=== PATIENT | male | born 1955 | race Caucasian/White ===

== ENCOUNTER 2019-03-20 06:01 | Day surgery (SDC) | payer OTHER, SELFPAY ==
[2019-03-19 10:26] VITALS: BMI 29.5
--- NOTE | 2019-03-19 10:49 | ANES.PREANES ---
Pre-Anesthetic Assessment Pre-Anesthetic Assessment: Height/Weight: Height 1.78 m Weight 93.44 kg Proposed Procedure: Operation Date: 03/20/19 07:00 Proposed Procedures p Exploration of left groin w/ poss hernia repair [id number], R10.32(Left) - Mando Forbes MD Social: Social History: No alcohol and No tobacco Exam: Pre-Anes Outpt Exam: alert, oriented x 3, clear to auscultation bilaterally and regular rate & rhythm Airway: Submandibular: WNL Cervical ROM: WNL MP: 2 Dentition: Full History/ROS: No significant history except as noted CV/HEM: CV/HEM: HTN Anesthetic Plan: ASA status: II Anesthesia: Anesthesia Evaluation and General Risk of > 500 ml blood loss (7ml/kg in children): No PFSH Anesthesia PFSH: Medical History (Updated 03/19/19 @ 10:50 by Tom Sheikh MD) Hx of renal calculi (Acute) Hypertension (Acute) Surgical History (Updated 03/19/19 @ 10:50 by Tom Sheikh MD) History of colon resection (Acute) Hx of arthroscopy of right knee (Acute) Social History (Updated 03/19/19 @ 10:25 by Laly Mitchell RN) Smoking and tobacco status: former smoker Quit status (tobacco): has quit using tobacco Data Anesthesia Cardiac Studies: No Data to Display
[2019-03-20] VITALS (8 sets, daily range): BP systolic 136–160; BP diastolic 81–96; PULSE 45–55; RESP 15–18; TEMP 36.2–36.6; O2SAT 95–99
[2019-03-20] MEDS: sodium chloride 0.9% 1,000 ML 30 ML IV (06:30)
--- NOTE | 2019-03-20 06:53 | PM.HPUD ---
H&P update H&P Update: DATE OF SURGERY/PROCEDURE: 03/20/19 DATE H&P PERFORMED: 03/11/19 H&P UPDATE INFORMATION: H&P completed within last 30 days, No changes to prior documentation and H&P to be scanned into chart PLANNED PROCEDURE: Operation Date: 03/20/19 07:00 Proposed Procedures p Laparoscopic Inguinal Hernia Repair(Left) - Mando Forbes MD Full H&P Perinent History: Medical/Surgical History: Medical History (Updated 03/19/19 @ 10:50 by Tom Sheikh MD) Hx of renal calculi (Acute) Hypertension (Acute) Social History: Social History Smoking and tobacco status: former smoker Quit status (tobacco): has quit using tobacco
--- NOTE | 2019-03-20 08:17 | P.OP_ITS ---
Operative Report Post-Operative Note: Date of procedure: 03/20/19 Preop Diagnosis: Reducible left inguinal hernia Post-op Findings: Left indirect inguinal hernia Procedure Done: Open repair of left inguinal hernia with plug and mesh Pathology: none sent Surgeon: Mando Forbes Anesthesia: general Estimated blood loss (mL): 10 Condition: stable Disposition: PACU Operative Report: Procedure: A 5 cm incision was made over the left inguinal canal using 15 blade, the subcutaneous tissue, Andriy's fascia divided using electrocautery until the external oblique aponeurosis was identified. Using a 15 blade, a small opening was made in the external oblique aponeurosis along the length of the fibers, this was grasped with hemostats and opened using Metzenba um scissors medially to the external ring and laterally beyond the internal ring. The contents of inguinal canal were dissected free from the wall and a [place] drain was placed around it. There was no direct hernia noted. The cremasteric muscles were divided until the sac could be dissected free from the spermatic cord and reduced into the preperitoneal space. A small plug was placed in the internal ring and sutured using 2-0 Prolene ijldoz-ud-ashco suture. A Proloop mesh was introduced and using 2-0 Prolene suture the medial edge of the mesh were sutured to the fascia overlying the pubic tubercle, and the suture was run to approximate the inferior edge of the mesh to the shelving edge of inguinal ligament to a point beyond the internal ring. Interrupted 2-0 Prolene suture was used to approximate the superior edge of the mesh to the internal oblique muscles and the 2 limbs of the mesh was sutured lateral to the internal ring and approximated to the internal oblique muscle. The wound was copiously irrigated with saline, good hemostasis noted and the external oblique aponeurosis was closed with running 2-0 Vicryl suture, Andriy's fascia approximated using running 3-0 Vicryl suture, and skin was closed using running subcuticular 4-0 Monocryl suture and Dermabond. 10 mL of 0.5% Marcaine was infiltrated around the incision. Coding Level of Care Code Acute Security Operations Engineer for Timothy Tanner
--- NOTE | 2019-03-20 08:29 | SUR.PHASEI ---
0823 PATIENT TO PACU VIA GURNEY FROM OR AT THIS TIME. RR EVEN AND UNLABORED. PWD. PATIENT RESPONSIVE TO VERBAL STIMULI. DRESSING TO ABDOMEN, CDI.
[2019-03-20] MEDS: fentaNYL 50 mcg/mL INJ 2mL IVP ×2 (08:34→08:39)
--- NOTE | 2019-03-20 08:51 | SUR.PHASEI ---
0847 PATIENT TO OPS VIA [facility]. PATIENT RATES PAIN 6/10, FACES 3/10. PATIENT OK WITH GOING TO OPS TO TAKE A PAIN PILL. PATIENT RR EVEN AND UNLABORED.
[2019-03-20] MEDS: HYDROcodone-acetaminophen 5-325 mg Tablet 1 TAB PO (09:21)
--- NOTE | 2019-03-20 13:25 | ANE.PACU ---
 Inpatient post-anesthesia follow up: Airway intact: Yes Vital signs: Temperature 97.8 F Pulse Rate [Monito r] 51 Respiratory Rate 18 Blood Pressure [Ri ght Arm] 138/86 Pulse Oximetry 97 Oxygen Delivery Me thod Room Air Oxygen Flow Rate 8 Fraction of Inspir ed Oxygen Hydration adequate: No Nausea and vomiting: No Mental status: Baseline
--- NOTE | 2019-03-21 14:27 | P.PCN_ITS ---
PACU note Post-Anesthesia Exam: awake Disposition: discharged
--- NOTE | 2019-03-21 14:27 | PM.PACU ---
PACU note Post-Anesthesia Exam: awake Disposition: discharged
== END 2019-03-20 09:50 | disposition home or self-care (01) ==
PROVIDERS: Visit Provider Surgery
PROC: (CPT 49505; principal; 2019-03-20 07:00)
DX: K40.90 Unilateral inguinal hernia, without obstruction or gangrene, not specified as recurrent (principal); M15.9 Polyosteoarthritis, unspecified; G47.10 Hypersomnia, unspecified; I48.91 Unspecified atrial fibrillation; Z87.891 Personal history of nicotine dependence; Z82.49 Family history of ischemic heart disease and other diseases of the circulatory system; Z79.82 Long term (current) use of aspirin
CPT/HCPCS: 49505; J0690; J1100; J2001; J2405; J2704; J2710; J3010; J3490; J7030

== ENCOUNTER → 2019-04-24 13:58 | Outpatient (BNVA) | payer OTHER, SELFPAY | PROVIDERS: PCP Family Medicine; Visit Provider Urology | DX: N20.9 Urinary calculus, unspecified (principal); N20.2 Calculus of kidney with calculus of ureter; R97.20 Elevated prostate specific antigen [PSA] | CPT/HCPCS: 81001; 84153 ==

== ENCOUNTER → 2019-04-30 09:24 | Outpatient (BNVA) | payer OTHER, SELFPAY | PROVIDERS: PCP Family Medicine; Visit Provider Family Medicine | DX: I10 Essential (primary) hypertension (principal); E78.2 Mixed hyperlipidemia; M19.90 Unspecified osteoarthritis, unspecified site | CPT/HCPCS: 80053; 80061 ==

== ENCOUNTER → 2019-05-10 12:20 | Outpatient (BNVA) | payer OTHER, SELFPAY | PROVIDERS: PCP Family Medicine; Visit Provider Urology | DX: N20.2 Calculus of kidney with calculus of ureter (principal); R97.20 Elevated prostate specific antigen [PSA] | CPT/HCPCS: 81001 ==

== ENCOUNTER → 2019-06-11 10:06 | Outpatient (BNVA) | payer OTHER, SELFPAY | PROVIDERS: PCP Family Medicine; Visit Provider Nurse Practitioner Family | DX: M25.551 Pain in right hip (principal); M19.90 Unspecified osteoarthritis, unspecified site; M25.561 Pain in right knee; G89.29 Other chronic pain | CPT/HCPCS: 85651; 86038; 86140; 86431 ==

== ENCOUNTER 2019-07-04 15:16 | Outpatient (CLI) | payer OTHER, SELFPAY ==
--- NOTE | 2019-07-08 13:17 | N.ONRAD NP_ITS ---
Radiation Oncology New Patient Visit Patient: Fortunato Deleon MR#: [id number] : 1955> Age: 64> Sex: Male> Dictated by: Dr. Kavon Warren Date of Service: 07/04/2019 Referring Physician(s) : Dr. Robby Tinoco Diagnosis: Stage IIc (T1 cN0 M0) Sherry score 7 (4+3) adenocarcinoma the prostate status post directed image guided biopsy of the prostate in May 2019 PSA at diagnosis was 13 Mr. Deleon is a otherwise healthy gentleman with previous elevated PSA level dating back to 2018 was 6.1 at that time. He underwent transrectal needle biopsy here in July 2017. At that time he all 12 biopsies were benign. He has been followed by Dr. Tinoco since that time and has had an elevated PSA level increase to 9.5 and ultimately to 13 by his report. In April 2019 he underwent MRI at [facility] by report this revealed a 12mm focus of restricted diffusion abutting the anterior prostatic capsule. No abnormally enlarged lymph nodes were detected. Finding were consistent with a PI-RADS 4. He underwent image guided biopsy by Dr. Orourke in [facility] in May 2019. The noted lesion was biopsied 4 times and were positive for [place] score 7 (4+3). 70% of the tissue was involved. 12 other random biopsies of both lobes were obtained with these other areas clear of disease involvement. Mr. Deleon has had chronic urinary symptoms for years with frequency and urgency and weak stream slowly progressive over time. He has stable 2 time nocturia. He has adequate erectile function and remains sexually active. He has no bowel symptoms. 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 He is now scheduled to see Dr. Hong at [facility] in [place] to discuss robotic surgery in 1 month. His brother had prostate carcinoma treated 2 years ago with primary radiation. He apparently did well with this so far. Radiotherapy to date: Summary > No prior radiation therapy. Current Medications: tamsulosin Allergies: celecoxib. Medical History: - History of bladder stone, - history of renal calculi, - hypertension, - left inguinal hernia, - prostatitis. No history of collagen vascular disease. No previous radiation therapy. Surgical History: Colon resection, hernia repair (left inguinal), prostate biopsy, removal of calculus from renal pelvis and right knee arthroscopy. Family History: Father is at age 81 having experienced Alzheimer's disease, and renal cancer. Mother is at age 74 having experienced colon cancer. Brother is alive having experienced prostate cancer. Social History: Last screened on 06/19/2019 - Never smoked. Last screened on 06/19/2019 - Never drank. Patient indicated access to the following support systems: lives with spouse, significant other, family, or friends, lives in own house, supportive family/friends willing to assist with needs, and adequate transportation available for expected visits. Patient indicated the following nutritional habits: regular meals. Patient indicated participation in the following forms of activity: regular exercise. Current Complaints / Review of Systems: Constitutional - Denies lack of appetite, fatigue, fever, night sweats and change in weight. Eyes - Complains of blurred vision in the right eye. 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 ENMT - Denies dysphagia, ear pain, mouth dryness, stomatitis and altered taste. Neck - Complains of neck pain which is chronic and decreased range of motion. Integumentary - Denies rash. Cardiovascular - Complains of arrhythmias and has history of A-Fib. Denies chest pain and edema. Respiratory - Denies cough, dyspnea and wheezing. Gastrointestinal - Complains of occasional constipation. Complains of heartburn / dyspepsia. Denies abdominal pain, diarrhea, melena / GI bleeding, nausea and vomiting. Genitourinary (M) - Complains of frequency, nocturia gets up about 2 times per night and urgency. Denies dysuria. Musculoskeletal - Complains of joint pain in the right knee and right hip. Denies bone pain and muscle weakness. Neurologic - Denies dizziness and headaches. Endocrine - Denies diabetes and thyroid disease. Hematologic/Lymphatic - Complains of tender or enlarged lymph nodes on the right side of the groin.. Vital Signs: Performed on 07/04/2019 4:24 PM BMI - 28.094 kg/m2 (high), Height - 70.50 in, Weight - 198.6 lbs, Temperature - 98.2 f, Pulse - 52, Respiration - 18, O2 Sat - 96 %, Pain - 0 and BP - 128/ 90 mm(hg). Physical Exam: Robust youthful appearing gentleman in no acute distress. Lymph nodes he had no palpable cervical or supraclavicular adenopathy. Lungs were clear to auscultation. Heart was regular no murmur gallop. Abdominal examination was unremarkable. Extremities revealed no clubbing cyanosis or edema. Rectal examination revealed a small smooth prostate no masses ridging or asymmetry Performance Status: Pathology: Lab: Imaging: See HPI Impression: Stage IIc (T1 cN0 M0) [place] score 7 (4+3) adenocarcinoma the prostate confined to 1 biopsy with a PSA of 13 by report at diagnosis. At this time I did not feel CT staging or bone scan staging was necessary given the slow increase in his PSA over time. In addition I felt that his marginal PSA above 10 and small volume of disease mitigate against using combined treatment with androgen deprivation therapy. I felt the addition benefit of androgen deprivation therapy was small over primary treatment. Also given his vigorous lifestyle there was some risk that ADT would have a significant risk of adversely affecting his quality of like. I felt he was both a candidate for consideration of surgical resection as well as primary radiation therapy as definitive therapies. Should he choose surgery, the MRI does suggest a significant risk of encountering a positive margin at the time of prostatectomy. I outlined the relative toxicities of both and he will now see Dr. Hong at [facility] in [place] to discuss surgery before finalizing a treatment decision. Plan: Signed by: 07/08/2019 1:15:42 PM <<Signature on File>> Time spent with patient: CPT Code: CPT Code:
== END 2019-07-04 15:17 | disposition home or self-care (01) ==
LOC: ONCMED 15:19
PROVIDERS: PCP Family Medicine; Referring Provider Urology; Visit Provider Radiology Radiation Oncology
DX: C61 Malignant neoplasm of prostate (principal); Z79.899 Other long term (current) drug therapy
CPT/HCPCS: 99204

== ENCOUNTER → 2019-10-23 15:57 | Outpatient (BNVA) | payer OTHER, SELFPAY | PROVIDERS: PCP Family Medicine; Visit Provider Urology | DX: C61 Malignant neoplasm of prostate (principal); N39.3 Stress incontinence (female) (male); N52.31 Erectile dysfunction following radical prostatectomy; R97.20 Elevated prostate specific antigen [PSA] | CPT/HCPCS: 81001; 84153 ==

== ENCOUNTER → 2019-11-21 09:56 | Outpatient (BNVA) | payer OTHER, SELFPAY | PROVIDERS: PCP Family Medicine; Visit Provider Nurse Practitioner Family | DX: I10 Essential (primary) hypertension (principal); Z79.899 Other long term (current) drug therapy | CPT/HCPCS: 80053; 80061; 84443; 85025 ==

== ENCOUNTER → 2020-01-07 15:40 | Outpatient (BNVA) | payer OTHER, SELFPAY | PROVIDERS: PCP Family Medicine; Visit Provider Nurse Practitioner Family | DX: M25.551 Pain in right hip (principal); M25.561 Pain in right knee; G89.29 Other chronic pain | CPT/HCPCS: 73502; 73562 ==

== ENCOUNTER → 2020-01-28 15:54 | Outpatient (BNVA) | payer OTHER, SELFPAY | PROVIDERS: PCP Family Medicine; Visit Provider Urology | DX: C61 Malignant neoplasm of prostate (principal); R97.20 Elevated prostate specific antigen [PSA]; N39.3 Stress incontinence (female) (male); N52.31 Erectile dysfunction following radical prostatectomy | CPT/HCPCS: 81003; 84153 ==

== ENCOUNTER → 2020-03-04 17:53 | Outpatient (BNVA) | payer OTHER, SELFPAY | PROVIDERS: PCP Family Medicine; Visit Provider Orthopaedic Surgery | DX: Z20.828 Contact with and (suspected) exposure to other viral communicable diseases (principal) | CPT/HCPCS: 87635 ==

== ENCOUNTER 2020-03-09 14:23 | Observation (INO) | payer OTHER, SELFPAY ==
[2020-02-24 12:40] VITALS: BMI 27.2
--- NOTE | 2020-02-24 13:17 | ANES.PREANE2 ---
Pre-Anesthetic Assessment Pre-Anesthetic Assessment: Height/Weight: Height 1.78 m Weight 86.183 kg Preop Diagnosis: Hip replacement Proposed Procedure: Operation Date: 03/09/20 14:30 Proposed Procedures p right Total Hip Arthroplasty 94330 m16.11(Right) - Shayne Schaeffer MD Familial anesthetic complications: Had epidural before for colon resection and it was difficult and painful to get in and he feels he's had back problems since Was Beta Jessica taken within 24 hours: N/A Last intake: NPO Social: Social History: No alcohol and No tobacco Exam: Pre-Anes Outpt Exam: alert, oriented x 3, clear to auscultation bilaterally and regular rate & rhythm Airway: Cervical ROM: WNL MP: 2 Dentition: Full CV/HEM: CV/HEM: Afib (hx of a fib - no longer on any meds) GI: GI: GERD Musc/skel: Musc/skel: Lower Back Pain Anesthetic Plan: ASA status: 2 Anesthesia: Regional (specify below) Other: patient willing to try spinal despite hx of back pain after epidural Risk of > 500 ml blood loss (7ml/kg in children): No PFSH Anesthesia PFSH: Medical History Elevated PSA History of bladder stone CYSTOLITHOLAPAXY Hx of renal calculi Hypertension Prostate cancer 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 Prostatitis, chronic Reducible left inguinal hernia Urolithiasis Surgical History H/O prostate biopsy fusion biopsy H/O prostatectomy History of colon resection History of removal of calculus of renal pelvis through percutaneous nephrostomy Hx of arthroscopy of right knee S/P left inguinal hernia repair open 03/20/2019 Family History Mother , at age 74 Cancer Colon Father , at age 86 Cancer KIDNEY CANCER Social History Smoking and tobacco status: former smoker Quit status (tobacco): has quit using tobacco Alcohol intake: never Adopted: No Caregiver/support person: No Lives independently: No Household members: spouse Marital status: Current occupational status: employed History of recent travel: No Data Anesthesia Cardiac Studies: No Data to Display
[2020-03-09] VITALS (24 sets, daily range): BP systolic 93–149; BP diastolic 52–94; PULSE 50–81; RESP 16–22; TEMP 36.3–37.1; O2SAT 93–100
[2020-03-09] MEDS: sodium chloride 0.9% 1,000 ML 30 ML IV (10:11)
[2020-03-09] MEDS: acetaminophen 500 mg Tablet 1000 MG PO ×2 (10:13→18:02)
[2020-03-09] MEDS: gabapentin 300 mg Capsule PO ×2 (10:13→18:05)
[2020-03-09] MEDS: oxyCODONE 20 mg ER (12 HR) Tablet PO (10:14)
--- NOTE | 2020-03-09 10:14 | P.HP_ITS ---
Same Day Surgery H&P Indication for Procedure/HPI DATE OF PROCEDURE: March 09, 2020 CHIEF COMPLAINT/INDICATIONFOR SURGICAL PROCEDURE: 65-year-old with right lower extremity pain. I know of him from a previous anterior cruciate ligament tear on that same side. Arthroscopy revealed significant degenerative changes in the knee. He has continued to be bothered by pain in his right hip attributable to severe degenerative changes. And is admitted for right total hip arthroplasty. PREOP DIAGNOSIS: Osteoarthritis Right hip PLANNED PROCEDRUE: Operation Date: 03/09/20 09:30 Proposed Procedures p right Total Hip Arthroplasty 99181 m16.11(Right) - Shayne Schaeffer MD Medications/Allergies* Home Medications Medication Instructions Recorded Confirmed Type Aspir-81 81 mg PO DAILY 03/19/19 02/24/20 History acetaminophen 325 mg PO QID PRN 03/19/19 02/24/20 History glucosamine HCl 500 mg PO BID 03/19/19 02/24/20 History magnesium 84 mg PO DAILY 03/19/19 02/24/20 History omega 4-qbg-enb-fish oil [Fish Oil] 1 cap PO DAILY 03/19/19 02/24/20 History amlodipine 2.5 mg PO DAILY 02/24/20 02/24/20 History metoprolol succinate 25 mg PO DAILY 02/24/20 02/24/20 History potassium citrate 20 meq PO TID 02/24/20 02/24/20 History Allergies/Adverse Reactions Allergy/AdvReac Type Severity Reaction Status Date / Time celecoxib [From Celebrex] AdvReac COULDNT Verified 01/21/20 15:35 WALK Current Medications: Generic Name Dose Route Start Last Admin Trade Name Freq PRN Reason Stop Dose Admin Sodium Chloride 1,000 mls @ 30 mls/hr 03/09/20 10:00 03/09/20 10:11 Sodium Chloride 0.9% IV 03/10/20 09:59 30 mls/hr .Q24H ANDRESSA Administration Pertinent History/Comorbid Conditions* Medical History (Updated 01/28/20 @ 16:50 by Robby Tinoco MD) Elevated PSA History of bladder stone CYSTOLITHOLAPAXY Hx of renal calculi Hypertension Prostate cancer 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 Prostatitis, chronic Reducible left inguinal hernia Urolithiasis Surgical History (Updated 08/12/20 @ 16:50 by Robby Tinoco MD) H/O prostate biopsy fusion biopsy H/O prostatectomy History of colon resection History of removal of calculus of renal pelvis through percutaneous nephrostomy Hx of arthroscopy of right knee S/P left inguinal hernia repair open 03/20/2019 Family History (Updated 04/19/19 @ 15:30 by LIANET Garcia) Father, at age 86 Mother, at age 74 Cancer Mother Colon Father KIDNEY CANCER Social History Smoking and tobacco status: former smoker Quit status (tobacco): has quit using tobacco Alcohol intake: never Adopted: No Caregiver/support person: No Lives independently: No Household members: spouse Marital status: Current occupational status: employed History of recent travel: No Pertinent Exam Findings alert, oriented x 3, clear to auscultation bilaterally, regular rate & rhythm and operative site marked Recommendations Surgery/Procedure today Coding Level of Care Code Acute Client Solutions Director for Timothy Tanner
[2020-03-09] MEDS: ceFAZolin 2,000 MG in sodium chloride 0.9% (plus) 50 ML 100 MG IV (10:30)
--- NOTE | 2020-03-09 11:03 | P.ANESUD_ITS ---
Pre-Anesthetic Update Pre-Anesthetic Assessment: Date of Surgery/Procedure: 03/09/20 Preop Leanne gnosis: Hip replacement Proposed Procedure: Operation Date: 03/09/20 09:30 Proposed Procedures p right Total Hip Arthroplasty 69806 m16.11(Right) - Shayne Schaeffer MD Any changes to Pre-Anesthetic Assessment?: No Last Intake: Intake Last Liquid Date 03/08/20 Last Liquid Time 20:00 Last Solid Date 03/08/20 Last Solid Time 20:00 Vitals: Temperature 97.5 F L 03/09/20 09:55 Temperature Source Temporal Artery S can 03/09/20 09:55 Pulse Rate 58 L 03/09/20 09:55 Pulse Rhythm 03/09/20 09:55 Pulse Strength 3+ Normal 03/09/20 09:55 Respiratory Rate 18 03/09/20 09:55 Blood Pressure 129/86 03/09/20 09:55 Blood Pressure Willa n 100 03/09/20 09:55 Pulse Oximetry 97 03/09/20 09:55 Oxygen Delivery Me thod 03/09/20 09:55 Exam: Pre-Anes Outpt Exam: alert, oriented x 3, clear to auscultation bilaterally and regular rate & rhythm Cardiac Studies: No Data to Display
[2020-03-09] MEDS: tranexamic acid 1,000 mg/10mL SDV 1000 MG IRRIGATION (11:31)
--- NOTE | 2020-03-09 11:56 | SUR.OPER ---
Family Notified Of Patient's Status Via Phone.
[2020-03-09] MEDS: sodium chloride 0.9% 1,000 ML 100 ML IV ×2 (13:25→15:56)
--- NOTE | 2020-03-09 13:25 | XR_ITS ---
WS: [id number] PELVIS: AP VIEW SUBMITTED HISTORY: Total hip arthroplasty COMPARISON: 01/07/2020 Status post RIGHT hip total arthroplasty. Arthroplasty components are in good position and alignment. No fractures. LEFT hip joint demonstrates at least moderate degenerative joint disease. XR/XR pelvis 1-2V* [id number] IMPRESSION: Status post RIGHT total hip arthroplasty.
--- NOTE | 2020-03-09 13:28 | PM.OP ---
Operative Report Date of procedure: March 09, 2020 Pre-op Diagnosis: Osteoarthritis right hip Post-op diagnosis: same Post-op Findings: Patient has severe degenerative changes of his acetabular and humeral head with complete obliteration of the medial joint and peripheral osteophytes about the humeral head Procedure Done: Right total hip arthroplasty Pathology: none sent Surgeon: Shayne Schaeffer Anesthesia: Nerve Block (Spinal) Estimated blood loss (mL): 100 Complications: None Findings: Patient has severe degenerative changes of his acetabular and humeral head with complete obliteration of the medial joint and peripheral osteophytes about the humeral head Condition: stable Disposition: PACU Procedure: The patient was taken to the operating room and anesthesia provided by the anesthesia service. The patient was placed in the lateral position on a beanbag. A timeout was performed. The patient was draped in the usual fashion. A 15 cm long incision was made beginning just proximal to the greater trochanter and extending posteriorly to a point just distal to the trochanter on the posterior border of the trochanter. Dissection was carried down with electrocautery through the subcutaneous fat to the fascia isidro which was divided proximally and distally with curved scissors. The anterior two thirds of the gluteus medius and minimus were elevated off the hip with electrocautery. The capsule was divided in a H-like fashion. The hip was dislocated and a neck cut made just above the level of the lesser trochanter. Exposure of the acetabulum was facilitated with the acetabular retractors. Remnants of labrum and peripheral osteophytes were removed with electrocautery and a rongeur. A reamer 2 mm under the size the femoral head was utilized to ream medially to the base of the palm and are. Reaming was then increased in 1 mm intervals until a healthy rim a trabecular bone was encountered. A trial ADM cup was placed and its position marked with electrocautery In the acetabulum. A final was press-fit into place. Attention was then focused on the femur. Sequential reaming was done under power until cortical chatter was encountered. Broaching was then accomplished until a stable broach size was obtained. A trial reduction with the head and neck provided excellent stability. The wound was irrigated with saline and antibiotic solution. The final Viky SecureFit Max stem was press-fit into place. The femoral head was placed and the hip was reduced. The hip was brought through range of motion and found to be free of impingement and stable. The anterior capsule was reapproximated with 1 Ethibond. The gluteus medius and minimus were repaired through bone with 5 Ethibond and reinforced with 1 Ethibond. The fascial isidro was closed with running 1 StrataFix Quill. The subcutaneous tissue closed with 2-0 Vicryl. The skin was closed with running 2-0 Monocryl suture.. A sterile [place] dressing was applied. The patient was taken to the recovery room in an abduction pillow in stable condition. 1) [place] 54 mm ADM acetabular shell 2) Size 8 Viky 132 degree neck angle SecureFit Max stem 3} 28 mm standard femoral head 4} Restorationa ADM X3 insert
--- NOTE | 2020-03-09 13:29 | SUR.PHASEI ---
1300 PT TO PACU AWAKES EASILY ON RA GOOD RESP EFFORT RT HIP DRESSING D/I PT WAS A SPINAL ANESTHETIC, PT MOVES LT TOES SLIGHTLY AND STATES HE FEELS NORMAL SENSATIONS AT T-12 LEVEL.
--- NOTE | 2020-03-09 13:39 | ANE.PACU2 ---
Inpatient post-anesthesia follow up: Airway intact: Yes Vital signs: Temperature 97.3 F Pulse Rate 53 Respiratory Rate 19 Blood Pressure 111/81 Pulse Oximetry 99 Oxygen Delivery Me thod Room Air Oxygen Flow Rate Fraction of Inspir ed Oxygen Hydration adequate: Yes Nausea and vomiting: No Pain level: 1 Mental status: Baseline
--- NOTE | 2020-03-09 13:40 | SUR.PHASEI ---
PT AWAKE ALERT ABLE TO MOVE TOES BILAT, AND COURSE MOVEMENT TO THIGHS, PT LICONA WITH STATLOCK TO RT THIGH YELLOW URINE WITH SEDIMENT NOTED.
--- NOTE | 2020-03-09 13:44 | SUR.PHASEI ---
PT AWAKE ALERT NOW WATITING FOR X RAY AND ROOM, VSS RT HIP DRESSING D/I
--- NOTE | 2020-03-09 14:09 | SUR.PHASEI ---
PT AWAKE ALERT TAKING ICE CHIPS PT TALKATIVE AND MOVES BOTH FEET STRONGLY NOW, ABD PILLOW IN PLACE, RT HIP DRESSING D/I DISTA RT FOOT WITH STRONG PULSE NOTED VSS WAITING TO GIVE REPORT TO FLOOR.
--- NOTE | 2020-03-09 14:22 | SUR.PHASEI ---
REPORT CALLED TO FLOOR PT AWAKE ALERT VSS NO COMPLAINTES PT TAKING ICE CHIPS
[2020-03-09] MEDS: morphine 4 mg/mL SDV 1 mL IVP ×3 (15:52→23:42)
[2020-03-09] MEDS: oxyCODONE 5 mg IR Tab/Cap PO ×2 (16:35→21:25)
[2020-03-09] MEDS: hyDRALAzine 25 mg Tablet PO (18:02)
[2020-03-09] MEDS: pneumococcal (23 valent) SDV 0.5 mL IM (18:02)
[2020-03-09] MEDS: sennosides-docusate Tablet 2 TAB PO (18:05)
--- NOTE | 2020-03-09 19:08 | PC.PT ---
Attempted PT evaluation 2 times this evening, both times patient declines due to uncontrolled pain, have discussed at length this was nursing, but patient still unable to participate due to same; nursing to contact physician again.; Will reattempt evaluation tomorrow
[2020-03-10] VITALS (9 sets, daily range): BP systolic 133–158; BP diastolic 57–82; PULSE 68–79; RESP 16–18; TEMP 36.6–37.6; O2SAT 94–98
[2020-03-10] MEDS: sodium chloride 0.9% 1,000 ML 100 ML IV ×2 (02:11→10:18)
[2020-03-10] MEDS: oxyCODONE 5 mg IR Tab/Cap PO ×3 (02:11→11:46)
[2020-03-10] MEDS: acetaminophen 500 mg Tablet 1000 MG PO ×2 (02:11→09:23)
[2020-03-10 06:56] LABS: Hemoglobin 12.2 g/dL (11.7-16.6)
[2020-03-10] MEDS: hydroCHLOROthiazide 25 mg Tablet 50 MG PO (09:22)
[2020-03-10] MEDS: meloxicam 7.5 mg tablet 15 MG PO (09:22)
[2020-03-10] MEDS: pantoprazole DR 40 mg Tablet PO (09:22)
[2020-03-10] MEDS: gabapentin 300 mg Capsule PO (09:23)
[2020-03-10] MEDS: amlodipine 5 mg Tablet 2.5 MG PO (09:23)
[2020-03-10] MEDS: atorvastatin 40 mg Tablet 20 MG PO (09:24)
[2020-03-10] MEDS: sennosides-docusate Tablet 2 TAB PO (09:24)
[2020-03-10] MEDS: metoprolol succinate ER (24 HR) 25 mg Tablet PO (09:24)
[2020-03-10] MEDS: aspirin 325 mg EC Tablet PO (09:24)
[2020-03-10] MEDS: hyDRALAzine 25 mg Tablet PO (09:24)
--- NOTE | 2020-03-10 13:24 | P.DS_ITS ---
Discharge Providers Date of Admission: 03/09/20 14:23 Date of Discharge: March 10, 2020 Attending Provider at Admission: Shayne Schaeffer MD Attending Provider at Discharge: Shayne Schaeffer MD Primary Care Provider: Socorro Walsh MD Diagnoses at Discharge Discharge Diagnosis (1) Osteoarthritis of right hip: Status: Resolved (2) Status post right hip replacement: Status: Acute Reason for Visit Reason for Visit: r total hip arthroplasty Hospital Course Hospital Course Mr. Deloen was admitted after elective right total hip arthroplasty. Postoperatively he did very well. By the first postoperative day he was indepen dent with therapy. He was managed with sequential compression dressings and aspirin for DVT prophylaxis. He remained hemodynamically stable. He was discharged home after his second therapy session on his first postoperative day. Physical Exam Narrative: EXAM NARRATIVE: On the day of discharge the hip incision was clean. The incision was free of drainage. They had no particular swelling about the thigh or distal. No distal neurovascular deficits were noted. Urinary Catheter Management^: Valdivia: Cath Placed During This Visit: yes, but has since been removed by the nurse Reason for Continuing Indwelling Catheter: Perioperative Use in Selected Surgeries Urinary Catheter Date of Insertion: 03/09/20 Urinary Catheter Time of Insertion: 11:00 Date Urinary Catheter Removed: 03/10/20 Time Urinary Catheter Discontinued: 06:49 Discharge Data Data Completed and Pending: Completed Studies During Hospitalization Category Date Time Status XR pelvis 1-2V* 7 2170 Routine Exams 03/09/20 13:25 Completed Labs from last 24 hours 03/10/20 06:37 Hgb 12.2 Vitals: Last Vital Signs Temp 98.5 F 03/10/20 11:06 Pulse 68 03/10/20 11:06 Resp 16 03/10/20 11:46 BP 133/74 03/10/20 11:06 Pulse Ox 98 03/10/20 11:06 Discharge Plan Discharge Patient Disposition: Home Condition: Stable Prescriptions: New oxycodone 5 mg Tablet 5 mg PO Q4H PRN (Reason: Moderate Pain) 7 Days Qty: 40 RF: 0 gabapentin 300 mg Capsule 300 mg PO BID 15 Days Qty: 30 RF: 0 Continued Aspir-81 81 mg PO DAILY@0600 RF: 0 magnesium 30 mg Tablet 84 mg PO DAILY@0600 RF: 0 acetaminophen 325 mg Tablet 325 mg PO QID PRN (Reason: Pain) RF: 0 glucosamine HCl 500 mg Tablet 500 mg PO BID@599,1999 RF: 0 omega 9-bwg-hqt-fish oil [Fish Oil] 1,000 mg (120 mg-180 mg) Capsule 1 cap PO DAILY@06 RF: 0 metoprolol succinate 50 mg tablet extended release 24 hr 25 mg PO DAILY@06 RF: 0 amlodipine 2.5 mg tablet 2.5 mg PO DAILY@599 RF: 0 potassium citrate 10 mEq (1,080 mg) tablet extended release 20 meq PO TID@ RF: 0 atorvastatin 10 mg tablet 10 mg PO DAILY@1999 RF: 0 hydrochlorothiazide 50 mg tablet 25 mg PO DAILY@599 RF: 0 meloxicam 15 mg tablet 15 mg PO DAILY@599 RF: 0 lisinopril 20 mg tablet 20 mg PO BID@ RF: 0 hydralazine 25 mg tablet 25 mg PO BID@ RF: 0 pantoprazole 40 mg tablet,delayed release (DR/EC) 40 mg PO DAILY@599 RF: 0 fluticasone propionate 50 mcg/actuation spray,suspension 1 spray INTRANASAL DAILY PRN (Reason: unknown) RF: 0 Discharge Orders: Discharge Order (Routine); Ordered 03/10/20 Ordered By: Shayne Schaeffer Referrals: Shayne Schaeffer MD [Physician] - 03/24/20 2:30 pm Discharge Diet: Advance as tolerated Discharge Activity: Limit activity as instructed Activity Restrictions/Additional Instructions: May shower once incisions completely free of drainage. Discontinue knee dressing in 48 hours. Replaced dressings as needed. Take Tylenol and meloxicam as before for pain. May take 3 tablets of Tylenol every 8 hrs Take Neurontin twice a day for the next 15 days for pain , discontinue other anti-inflammatories take oxycodone for breakthrough pain. Exercises per physical therapy. May weight-bear as tolerated on total hip arthroplasty Discharge Attestations Time Spent in Discharge Care*: other Quality Metrics Clinical Quality Measures During this hospital stay, did patient experience: None Coding Level of Care Code Acute Ceo And Co Founder for Timothy Fwdaisy Diagnoses Osteoarthritis of right hip M16.11 Status post right hip replacement Z96.641
--- NOTE | 2020-03-10 16:13 | PC.NURSE ---
discussed discharge instructions verbalized understanding, at bedside. awaiting walker to discharge home.
== END 2020-03-10 18:14 | disposition home or self-care (01) ==
LOC: MEDSURG 14:23
PROVIDERS: Admitting Provider Orthopaedic Surgery; PCP Family Medicine; Visit Provider Orthopaedic Surgery
PROC: (CPT 27130; principal; 2020-03-09 09:00)
DX: M16.11 Unilateral primary osteoarthritis, right hip (principal); I48.91 Unspecified atrial fibrillation; K21.9 Gastro-esophageal reflux disease without esophagitis; I10 Essential (primary) hypertension; Z85.46 Personal history of malignant neoplasm of prostate; Z87.891 Personal history of nicotine dependence
CPT/HCPCS: 27130; 12345; 36415; 72170; 85018; 90471; 90732; 96365; 97110; 97116; 97161; 97166; 97530; 97535; C1776; G0378; J0690; J1580; J2250; J2270; J2370; J2704; J3490; J7030

== ENCOUNTER 2020-04-01 06:00 | Outpatient (RCR) | payer OTHER, SELFPAY | END 2020-04-12 23:59 | disposition home or self-care (01) | LOC: TPT 06:00 | PROVIDERS: PCP Family Medicine; Referring Provider Orthopaedic Surgery; Visit Provider Orthopaedic Surgery | DX: Z47.1 Aftercare following joint replacement surgery (principal); Z96.641 Presence of right artificial hip joint | CPT/HCPCS: 97110; 97161 ==

== ENCOUNTER 2020-04-13 06:00 | Outpatient (RCR) | payer OTHER, SELFPAY | END 2020-05-10 23:59 | disposition home or self-care (01) | LOC: TPT 06:00 | PROVIDERS: PCP Family Medicine; Referring Provider Orthopaedic Surgery; Visit Provider Orthopaedic Surgery | DX: Z47.1 Aftercare following joint replacement surgery (principal); Z96.651 Presence of right artificial knee joint | CPT/HCPCS: 73502 ==

== ENCOUNTER 2020-04-14 14:06 | Outpatient (CLI) | payer OTHER, SELFPAY ==
[2020-04-14 14:34] LABS: Hematocrit 36.3 % (42.0-52.0); Hemoglobin 11.7 g/dL (11.7-16.6); Mean Corpuscular HGB Conc 32.2 g/dL (30.0-36.0); Mean Corpuscular Hemoglobin 29.1 pg (28.0-34.0); Mean Corpuscular Volume 90.3 fL (80-94); Mean Platelet Volume 10.9 fL (7.4-10.4); Platelet Count 205 10^3/cmm (130-400); Red Blood Count 4.02 10^6/uL (4.1-5.3); Red Cell Distribution Width 12.3 % (12.1-15.1); White Blood Count 8.7 10^3/uL (4.0-10.0)
[2020-04-14 14:56] LABS: C Reactive Protein 45.1 mg/L (0.0-4.9)
[2020-04-14 15:25] LABS: Erythrocyte Sedimentation Rate 41 mm/hr (0-10)
[2020-04-14 15:28] LABS: Absolute Eosinophils 0.6 10^3/cmm (0.0-0.7); Absolute Neutrophil 6.2 10^3/cmm (1.4-6.5); Absolute Segmented Neutrophil 6.2 10/cmm (1.6-7.1); Anisocytosis Trace; Eosinophils 8 %; Lymphocytes 14 %; Monocytes Absolute 0.1 10^3/cmm (0.1-0.6); Platelet Estimate Normal (Normal); Segmented Neutrophils 71 %; Total Cells Counted 100 (0-100)
== END 2020-04-14 14:07 | disposition home or self-care (01) ==
PROVIDERS: PCP Family Medicine; Visit Provider Orthopaedic Surgery
DX: Z48.89 Encounter for other specified surgical aftercare (principal); Z96.641 Presence of right artificial hip joint
CPT/HCPCS: 36415; 85007; 85027; 85651; 86140; 87635

== ENCOUNTER 2020-04-16 08:41 | Day surgery (SDC) | payer OTHER, SELFPAY ==
[2020-04-15 11:37] VITALS: BMI 27.6
[2020-04-16] VITALS (7 sets, daily range): BP systolic 145–176; BP diastolic 83–105; PULSE 63–92; RESP 17–18; TEMP 36.6; O2SAT 94–96
[2020-04-16] MEDS: sodium chloride 0.9% 1,000 ML 30 ML IV (09:30)
--- NOTE | 2020-04-16 09:55 | ANES.PREANE2 ---
Pre-Anesthetic Assessment Pre-Anesthetic Assessment: Height/Weight: Height 1.79 m Weight 88.451 kg Preop Diagnosis: Hematoma right hip Proposed Procedure: Operation Date: 04/16/20 10:20 Proposed Procedures p exploration right hip with wound cultures Z96.641 84137(Right) - Shayne Schaeffer MD Familial anesthetic complications: None Was Beta Jessica taken within 24 hours: N/A Last intake: Intake Last Liquid Date 04/15/20 Last Liquid Time 22:00 Last Solid Date 04/15/20 Last Solid Time 21:00 Social: Social History: No alcohol and No tobacco Exam: Pre-Anes Outpt Exam: alert, oriented x 3, clear to auscultation bilaterally and regular rate & rhythm Airway: Cervical ROM: WNL MP: 1 Dentition: Full CV/HEM: CV/HEM: Afib GI: GI: GERD Musc/skel: Musc/skel: Lower Back Pain Anesthetic Plan: ASA status: 2 Anesthesia: Choice Other: MAC if adequate for surgeon, general if more extensive exploration Risk of > 500 ml blood loss (7ml/kg in children): No PFSH Anesthesia PFSH: Medical History Elevated PSA History of bladder stone CYSTOLITHOLAPAXY Hx of renal calculi Hypertension Prostate cancer 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 Prostatitis, chronic Reducible left inguinal hernia Urolithiasis Surgical History H/O prostate biopsy fusion biopsy H/O prostatectomy History of colon resection History of removal of calculus of renal pelvis through percutaneous nephrostomy Hx of arthroscopy of right knee S/P left inguinal hernia repair open 03/20/2019 Family History Mother , at age 74 Cancer Colon Father , at age 86 Cancer KIDNEY CANCER Social History Smoking and tobacco status: former smoker Quit status (tobacco): has quit using tobacco Alcohol intake: never Adopted: No Caregiver/support person: No Lives independently: No Household members: spouse Marital status: Current occupational status: employed History of recent travel: No Data Anesthesia Cardiac Studies: No Data to Display
--- NOTE | 2020-04-16 10:22 | W.PM.OPSFHP ---
Same Day Surgery H&P Indication for Procedure/HPI DATE OF PROCEDURE: April 16, 2020 CHIEF COMPLAINT/INDICATIONFOR SURGICAL PROCEDURE: Drainage right hip PREOP DIAGNOSIS: Hematoma right hip PLANNED PROCEDRUE: Operation Date: 04/16/20 10:20 Proposed Procedures p exploration right hip with wound cultures Z96.641 63512(Right) - Shayne Schaeffer MD Mr. Deleon is a 65-year-old male who underwent a unremarkable right total hip arthroplasty on 03/09/2020. He was seen for his 2-week check and had no complaints. He had minimal incisional drainage and his incision looked completely benign. Apparently this Monday he was up pulling a calf. The following day noted some swelling over the lateral aspect of his hip. He was seen by his primary care physician and placed on Bactrim. On Monday of this week he was noted to have some drainage and came in to my clinic. He denies any fever. He states he has measured a temperature of 99 degrees. He does states he has been constipated and has some left lower quadrant abdominal discomfort. He has a history of diverticulitis. Medications/Allergies* Home Medications Medication Instructions Recorded Confirmed Type Aspir-81 81 mg PO DAILY@0600 03/19/19 04/16/20 History acetaminophen 325 mg PO QID PRN 03/19/19 04/16/20 History glucosamine HCl 500 mg PO BID@03/19/19 04/16/20 History magnesium 84 mg PO DAILY@0600 03/19/19 04/16/20 History omega 4-jxh-sdc-fish oil [Fish Oil] 1 cap PO DAILY@59903/19/19 04/16/20 History amlodipine 2.5 mg PO DAILY@0602/24/20 04/16/20 History metoprolol succinate 25 mg PO DAILY@0602/24/20 04/16/20 History potassium citrate 20 meq PO TID@02/24/20 04/16/20 History atorvastatin 10 mg PO DAILY@199903/10/20 04/16/20 History fluticasone propionate 1 spray INTRANASAL DAILY PRN 03/10/20 04/15/20 History hydralazine 25 mg PO BID@03/10/20 04/16/20 History hydrochlorothiazide 50 mg PO DAILY@0603/10/20 04/16/20 History lisinopril 20 mg PO BID@06,199903/10/20 04/16/20 History meloxicam 15 mg PO DAILY@0603/10/20 04/16/20 History pantoprazole 40 mg PO DAILY@0600 03/10/20 04/16/20 History Allergies/Adverse Reactions Allergy/AdvReac Type Severity Reaction Status Date / Time celecoxib [From Celebrex] AdvReac COULDNT Verified 04/15/20 11:27 WALK Pertinent History/Comorbid Conditions* Medical History (Updated 04/14/20 @ 11:40 by ANDREY Rosales) Elevated PSA History of bladder stone CYSTOLITHOLAPAXY Hx of renal calculi Hypertension Prostate cancer 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 Prostatitis, chronic Reducible left inguinal hernia Urolithiasis Surgical History (Updated 03/10/20 @ 13:23 by Shayne Schaeffer MD) H/O prostate biopsy fusion biopsy H/O prostatectomy History of colon resection History of removal of calculus of renal pelvis through percutaneous nephrostomy Hx of arthroscopy of right knee S/P left inguinal hernia repair open 03/20/2019 Family History (Updated 04/19/19 @ 15:30 by LIANET Garcia) Father, at age 86 Mother, at age 74 Cancer Mother Colon Father KIDNEY CANCER Social History Smoking and tobacco status: former smoker Quit status (tobacco): has quit using tobacco Alcohol intake: never Adopted: No Caregiver/support person: No Lives independently: No Household members: spouse Marital status: Current occupational status: employed History of recent travel: No Pertinent Exam Findings alert, oriented x 3, clear to auscultation bilaterally and regular rate & rhythm The patient has drainage centrally from his hip of a dark bloody fluid. There is no erythema along his incision. Really has no real pain with motion of his hip. He has no distal neurovascular deficits. Pertinent Data PERTINENT DATA: His ESR is elevated at 41 and his C-reactive protein at 45 Recommendations Surgery/Procedure today Other Plans: I discussed treatment options with the patient. His elevated lab values are are worrisome for infection he certainly at least has a draining hematoma. He has been off of Bactrim now for 2 days. We will proceed to the operating room today for exploration of the hip irrigation debridement. Obtain deep cultures. I warned him that if there is a deep infection retention of the prosthesis can be very difficult and it may require removal of his prosthesis. He understands the magnitude of the procedure and agrees to proceed. Coding Level of Care Code Acute Credentialing Manager for Timothy Tanner
[2020-04-16] MEDS: vancomycin 1,000 MG SDV 1000 MG XX (11:51)
--- NOTE | 2020-04-16 12:17 | PM.OP ---
Operative Report Date of procedure: April 16, 2020 Pre-op Diagnosis: Hematoma right hip Post-op Diagnosis: Same Procedure Done: The patient had a large hematoma between his fascial isidro and subcutaneous skin. A modest amount of hematoma was identified beneath the fascia isidro within the hip joint. No necrotic, purulent, or other evidence of infection was noted noted. Pathology: none sent Anesthesia: General Estimated blood loss (mL): 50 Complications: None Findings: As above Condition: stable Disposition: same day Procedure: The patient was taken to the operating room and given a general anesthesia. He was positioned in the lateral position with the left hip exposed. Initially the skin incision was opened with a scalpel revealing a hematoma along the inferior half of the incision. The fascial isidro appeared to be intact. There was approximately 20 cc of coagulated blood. Routine and anaerobic cultures of this hematoma were obtained. Superficial tissues were then irrigated with approximately 500 cc of saline. All instruments used for debridement and exposure for the superficial hematoma were then moved to the side. With clean scissors the fascia was then split in line with the previous eschar. A small amount of hematoma was seen over the anterior capsule. 6 L of fluid were then irrigated through the subcutaneous tissues and deep joint. All suture and previously placed for material were removed. 1 g of vancomycin powder was spread across the deep hip joint and lateral to the gluteal tendons. A 0 STratafix suture was used to reapproximate the anterior two thirds of the gluteus minimus to soft tissue. A second 0 Stratafix was used to create a tight closure on the fascial isidro. A second gram of vancomycin was placed over the fascial isidro. The skin was closed with interrupted 0 and 2-0 Prolene's. A sterile dressing was applied. The patient was taken to recovery room in stable condition.
[2020-04-16] MEDS: oxyCODONE 5 mg IR Tab/Cap PO (13:26)
== END 2020-04-16 13:56 | disposition home or self-care (01) ==
PROVIDERS: PCP Family Medicine; Visit Provider Orthopaedic Surgery
PROC: (CPT 26990; principal; 2020-04-16 10:10)
DX: S70.02XA Contusion of left hip, initial encounter (principal); X58.XXXA Exposure to other specified factors, initial encounter; I48.91 Unspecified atrial fibrillation; I10 Essential (primary) hypertension; Z85.46 Personal history of malignant neoplasm of prostate; Z87.891 Personal history of nicotine dependence
CPT/HCPCS: 26990; 12345; 87070; 87075; 87205; J0131; J0690; J2405; J2704; J3010; J3370; J7030

== ENCOUNTER → 2020-05-20 16:02 | Outpatient (BNVA) | payer OTHER, SELFPAY | PROVIDERS: PCP Family Medicine; Visit Provider Urology | DX: C61 Malignant neoplasm of prostate (principal); N20.2 Calculus of kidney with calculus of ureter; N39.3 Stress incontinence (female) (male); N52.31 Erectile dysfunction following radical prostatectomy | CPT/HCPCS: 81003; 84153 ==

== ENCOUNTER → 2020-05-27 08:54 | Outpatient (BNVA) | payer OTHER, SELFPAY | PROVIDERS: PCP Family Medicine; Visit Provider Orthopaedic Surgery | DX: Z48.89 Encounter for other specified surgical aftercare (principal); Z96.641 Presence of right artificial hip joint | CPT/HCPCS: 73502 ==

== ENCOUNTER → 2020-06-12 09:48 | Outpatient (BNVA) | payer OTHER, SELFPAY | PROVIDERS: PCP Family Medicine; Visit Provider Nurse Practitioner Family | DX: I10 Essential (primary) hypertension (principal); R53.83 Other fatigue; E87.6 Hypokalemia; E78.5 Hyperlipidemia, unspecified; K21.9 Gastro-esophageal reflux disease without esophagitis; Z68.27 Body mass index [BMI] 27.0-27.9, adult; F17.211 Nicotine dependence, cigarettes, in remission | CPT/HCPCS: 80053; 80061; 82306; 84443; 85025 ==

== ENCOUNTER → 2020-07-14 16:13 | Outpatient (BNVA) | payer OTHER, SELFPAY | PROVIDERS: PCP Family Medicine; Visit Provider Family Medicine | DX: M25.50 Pain in unspecified joint (principal); F17.211 Nicotine dependence, cigarettes, in remission; M19.90 Unspecified osteoarthritis, unspecified site; Z68.27 Body mass index [BMI] 27.0-27.9, adult | CPT/HCPCS: 84550; 84560; 85651; 86038; 86431 ==

== ENCOUNTER → 2020-09-15 09:11 | Outpatient (BNVA) | payer OTHER, SELFPAY | PROVIDERS: PCP Family Medicine; Visit Provider Internal Medicine Rheumatology | DX: M19.90 Unspecified osteoarthritis, unspecified site (principal); Z79.899 Other long term (current) drug therapy; Z96.641 Presence of right artificial hip joint; Z96.651 Presence of right artificial knee joint; Z71.89 Other specified counseling; Z87.891 Personal history of nicotine dependence | CPT/HCPCS: 99204 ==

== ENCOUNTER 2020-09-22 14:14 | Outpatient (CLI) | payer OTHER, SELFPAY ==
--- NOTE | 2020-09-22 14:39 | XRR_ITS ---
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 Views: 3 or more views. COMPARISON: CR Ankle 3 views, RIGHT* [id number] 12/26/2013 12:40 PM FINDINGS: Bones/joints: Mild great toe MTP primary osteoarthritis. Soft tissues: Normal. XR/XR foot RT min 3V* [id number] IMPRESSION: Mild great toe MTP primary osteoarthritis.
--- NOTE | 2020-09-22 14:39 | XRR_ITS ---
PROCEDURE INFORMATION: Exam: XR Left Hand Exam date and time: 09/22/2020 2:39 PM Age: 65 years old Clinical indication: Hand; Left; Patient HX: Joint pain; Additional info: Z79.899 - other longterm (current) drug therapy TECHNIQUE: Imaging protocol: XR Left hand. Views: 3 or more views. COMPARISON: XA C-arm [facility] for [facility] 09/02/2015 11:56 AM FINDINGS: Bones/joints: Mild primary erosive osteoarthritis within one or more distal interphalangeal joints. Mild thumb CMC erosive primary osteoarthritis. Soft tissues: Normal. XR/XR hand LT min 3V* [id number] IMPRESSION: 1. Mild primary erosive osteoarthritis within one or more distal interphalangeal joints. 2. Mild thumb CMC erosive primary osteoarthritis.
--- NOTE | 2020-09-22 14:39 | XRR_ITS ---
PROCEDURE INFORMATION: Exam: XR Right Hand Exam date and time: 09/22/2020 2:39 PM Age: 65 years old Clinical indication: Right; Patient HX: Patient states he has been having joint pain and stiffness in the hands(left 2nd 3rd mcp) that can interfere with sleep. 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 Views: 3 or more views. 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 Thumb interphalangeal arthritis. Minimal chondrocalcinosis in the lateral aspect of the middle finger metacarpal phalangeal joint. Soft tissues: Normal. XR/XR hand RT min 3V* [id number] IMPRESSION: 1. 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 2. Thumb interphalangeal arthritis. 3. Minimal chondrocalcinosis in the lateral aspect of the middle finger metacarpal phalangeal joint.
--- NOTE | 2020-09-22 14:39 | XRR_ITS ---
PROCEDURE INFORMATION: Exam: XR Left Foot Exam date and time: 09/22/2020 2:39 PM Age: 65 years old Clinical indication: Foot; Left; Patient HX: Joint pain; Additional info: Z79.899 - other group home (current) drug therapy TECHNIQUE: Imaging protocol: XR Left foot. Views: 3 or more views. COMPARISON: No relevant prior studies available. FINDINGS: Bones/joints: Calcaneal spur. Ossification/calcification over the Achilles tendon insertion on the posterior calcaneus consistent with enthesopathy. Soft tissues: Normal. XR/XR foot LT min 3V* [id number] IMPRESSION: No acute findings.
--- NOTE | 2020-09-22 14:45 | XRR_ITS ---
PROCEDURE INFORMATION: Exam: XR Abdomen Exam date and time: 09/22/2020 2:45 PM Age: 65 years old Clinical indication: Condition or disease; Kidney or ureter condition; Calculus (stone) in ureter; Prior surgery; Surgery type: Surgery--colon, hernia, hip, prostate; Patient HX: Follow up; Additional info: Calculus of ureter TECHNIQUE: Imaging protocol: XR of the abdomen. Views: Frontal supine view of the abdomen. 1 View. COMPARISON: CR XR KUB [id number] 02/11/2019 2:18 PM FINDINGS: Gastrointestinal tract: Thgf-cs-grmeacxs retained feces over the right colon which is overlying the right kidney. Lvjw-dw-thgawmta retained feces over the rectum. Interval appearance of 1.2 cm left pelvic stone versus debris within the rectosigmoid colon. Bones/joints: Moderate to severe multilevel spine degenerative changes including degenerative disc disease, spondylosis and facet degenerative changes. Interval right total hip replacement. XR/XR KUB [id number] IMPRESSION: 1. Interval right total hip replacement. 2. Yniw-it-jssxtckp retained feces over the right colon which is overlying the right kidney. 3. Uipq-wm-hiiwjloe retained feces over the rectum. 4. Interval appearance of 1.2 cm left pelvic stone versus debris within the rectosigmoid colon.
[2020-09-22 15:43] LABS: C Reactive Protein 0.3 mg/L (0.0-4.9)
[2020-09-22 16:30] LABS: Erythrocyte Sedimentation Rate 9 mm/hr (0-10)
== END 2020-09-22 14:15 | disposition home or self-care (01) ==
PROVIDERS: PCP Family Medicine; Referring Provider Internal Medicine Rheumatology; Visit Provider Urology
DX: N20.1 Calculus of ureter (principal); Z79.899 Other long term (current) drug therapy; M19.90 Unspecified osteoarthritis, unspecified site; Z96.641 Presence of right artificial hip joint; M19.042 Primary osteoarthritis, left hand; Z89.421 Acquired absence of other right toe(s); M19.071 Primary osteoarthritis, right ankle and foot
CPT/HCPCS: 36415; 73130; 73630; 74018; 81003; 85651; 86140; G0103

== ENCOUNTER 2020-09-29 14:22 | Outpatient (CLI) | payer OTHER, SELFPAY ==
--- NOTE | 2020-09-29 15:15 | XRR_ITS ---
PROCEDURE INFORMATION: Exam: XR Abdomen Exam date and time: 09/29/2020 3:15 PM Age: 65 years old Clinical indication: Condition or disease; Kidney or ureter condition; Calculus (stone) in kidney; Prior surgery; Surgery type: Prostate/colon resection; Patient HX: Kidney stone follow up; Abnormal findings in kub from last week; Possible stone in tract; Additional info: Urolithiasis TECHNIQUE: Imaging protocol: XR of the abdomen. Views: Frontal supine view of the abdomen. 1 View. COMPARISON: CR XR KUB [id number] 09/22/2020 2:36 PM FINDINGS: Gastrointestinal tract: Normal. No bowel dilation. Moderate colonic stool burden. Bones/joints: A moderate multilevel DJD of the lumbar spine. Total right hip arthroplasty noted. Moderate DJD of the left hip. Other findings: No radiographic evidence of nephrolithiasis. XR/XR KUB [id number] IMPRESSION: No radiographic evidence of nephrolithiasis. No acute findings.
== END 2020-09-29 14:23 | disposition home or self-care (01) ==
PROVIDERS: PCP Family Medicine; Visit Provider Urology
DX: N20.9 Urinary calculus, unspecified (principal)
CPT/HCPCS: 74018; 81003

== ENCOUNTER 2020-10-02 09:23 | Outpatient (CLI) | payer OTHER, SELFPAY ==
--- NOTE | 2020-10-02 09:30 | CT_ITS ---
WS: [id number] CT ABDOMEN PELVIS TECHNIQUE: Noncontrast CT of the abdomen and pelvis with coronal and sagittal reformatted images. CLINICAL INFORMATION: STONES COMPARISON: CT 5 14,016 DLP: 1173.[address] scans at [facility] use at least one of these dose optimization techniques: automat ed exposure control; mA and/or kV adjustment per patient size (includes targeted exams where dose is matched to clinical indication); or iterative reconstruction. FINDINGS: Mild prominence of the left renal pelvis. Mild left ureterectasis with obstructing distal left ureter al calculus measuring 6.7 mm. Minimal perinephric edema.. Normal right kidney. No obstructing right renal or ureteral calculi. Noncontrast liver is normal. Cho lelithiasis. Normal GE junction. Noncontrast pancreas is normal. Normal caliber abdominal aorta. Mild aortic calcification. No evidenc e of high-grade small or large bowel obstruction. Right AMY. Moderate spondylitic changes lumbar spin e. Disc osteophyte complexes throughout the lumbar spine. CT/CT kidney stone 87073 IMPRESSION: 1. Mild left ureterectasis with distal pelvic left ureteral calculus measuring 6.7 mm in the left lower pelvis. Distal left ureter is patent at the UVJ. Mini mal perinephric stranding left kidney. 2. No hydronephrosis in right kidney. 3. Cholelithiasis. 4. No other significant findings.
== END 2020-10-02 09:24 | disposition home or self-care (01) ==
PROVIDERS: PCP Family Medicine; Visit Provider Urology
DX: N13.4 Hydroureter (principal); K80.20 Calculus of gallbladder without cholecystitis without obstruction; Z20.822 Contact with and (suspected) exposure to COVID-19; N20.2 Calculus of kidney with calculus of ureter
CPT/HCPCS: 74176; 81003; 87635

== ENCOUNTER 2020-10-05 13:02 | Day surgery (SDC) | payer OTHER, SELFPAY ==
[2020-10-02 16:02] VITALS: BMI 27.6
--- NOTE | 2020-10-05 | SCC_ITS ---
Procedure Done: 1. Cystoscopy, left retrograde pyelogram 2. Left ureteroscopy, laser lithotripsy, stent 73.5 seconds of fluoroscopic guidance, for a cumulative dose of 10.15 mGy, was provided to Dr. Tinoco by the radiology department. C-arm images of the abdomen were saved for the patient's permanent record. [facility]
--- NOTE | 2020-10-05 13:19 | SC_ITS ---
WS: [id number] C-arm FL for Urology REASON FOR EXAM: Left ureteroscopy FINDINGS: Proximal end of retrograde placed double pigtail catheter within the opacified left renal pelvis. No calculi identified. No extravasation seen. SC/C-arm [facility] for Urology IMPRESSION: Retrograde left ureteral stent placement without abnormality.
[2020-10-05] MEDS: sodium chloride 0.9% 1,000 ML 30 ML IV (13:30)
--- NOTE | 2020-10-05 15:33 | P.HPUD_ITS ---
Surgery/Procedure H&P Update DATE OF PROCEDURE: October 05, 2020 DATE H&P PERFORMED: 10/05/20 PREOP DIAGNOSIS: Large left distal ureteral stone, obstruction PLANNED PROCEDURE: Operation Date: 10/05/20 14:40 Proposed Procedures p CYSTOSCOPy 28219 MODIFIER 26 99837 72196 N20.2(Left) - Robby Tinoco MD s URETEROSCOPY 19598 MODIFIER 26 34100 71504 N20.2(Not Applicable) - Robby Tinoco MD s LEFT RETROGRADE 26054 MODIFIER 26 60957 26519 N20.2(Left) - Robby Tinoco MD s Left stent [id number] MODIFIER 26 09701 08666 N20.2(Not Applicable) - Robby Tinoco MD s Laser Lithotripsy(Left) - Robby Tinoco MD
--- NOTE | 2020-10-05 15:33 | W.PM.OPSUD ---
Surgery/Procedure H&P Update DATE OF PROCEDURE: October 05, 2020 DATE H&P PERFORMED: 10/05/20 PREOP DIAGNOSIS: Large left distal ureteral stone, obstruction PLANNED PROCEDURE: Operation Date: 10/05/20 14:40 Proposed Procedures p CYSTOSCOPy 76475 MODIFIER 26 23605 81912 N20.2(Left) - Robby Tinoco MD s URETEROSCOPY 61999 MODIFIER 26 53913 89249 N20.2(Not Applicable) - Robby Tinoco MD s LEFT RETROGRADE 12369 MODIFIER 26 57935 43749 N20.2(Left) - Robby Tinoco MD s Left stent 68062 MODIFIER 26 00681 96009 N20.2(Not Applicable) - Robby Tinoco MD s Laser Lithotripsy(Left) - Robby Tinoco MD
--- NOTE | 2020-10-05 15:44 | ANES.PREANE2 ---
Pre-Anesthetic Assessment Pre-Anesthetic Assessment: Height/Weight: Height 1.78 m Weight 87.543 kg Preop Diagnosis: Large left distal ureteral stone, obstruction Proposed Procedure: Operation Date: 10/05/20 14:40 Proposed Procedures p CYSTOSCOPy 86883 MODIFIER 26 39074 30098 N20.2(Left) - Robby Tinoco MD s URETEROSCOPY 81654 MODIFIER 26 31746 04417 N20.2(Not Applicable) - Robby Tinoco MD s LEFT RETROGRADE 04268 MODIFIER 26 50360 61852 N20.2(Left) - Robby Tinoco MD s Left stent 83453 MODIFIER 26 26630 09301 N20.2(Not Applicable) - Robby Tinoco MD s Laser Lithotripsy(Left) - Robby Tinoco MD Was Beta Jessica taken within 24 hours: Yes Was Clonidine taken within 24 hours: N/A Last intake: Intake Last Liquid Date 10/04/20 Last Liquid Time 21:00 Last Solid Date 10/04/20 Last Solid Time 21:00 Social: Social History: No alcohol and No tobacco Exam: Pre-Anes Outpt Exam: alert, oriented x 3, clear to auscultation bilaterally and regular rate & rhythm Airway: Submandibular: WNL Cervical ROM: WNL MP: 2 Dentition: Full CV/HEM: CV/HEM: HTN GI: GI: GERD Metabolic: Metabolic: Hyperlipidemia Musc/skel: Musc/skel: RA Comments: Chronic steroids Neuropsych: Neuropsych: Deficit (Right facial weakness) Anesthetic Plan: ASA status: 3 Anesthesia: General PFSH Anesthesia PFSH: Medical History High risk medication use History of bladder stone CYSTOLITHOLAPAXY Hx of renal calculi Hypertension Immunization counseling Inflammatory arthritis Prostate cancer 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 Reducible left inguinal hernia Urolithiasis Surgical History H/O prostate biopsy fusion biopsy H/O prostatectomy History of colon resection History of removal of calculus of renal pelvis through percutaneous nephrostomy Hx of arthroscopy of right knee S/P left inguinal hernia repair open 03/20/2019 Family History Mother , at age 74 Cancer Colon Father , at age 86 Cancer KIDNEY CANCER Other Rheumatoid arthritis Denies family history of Diabetes CAD (coronary artery disease) Chronic kidney disease (CKD) Lung disease Hypertension Stroke Social History Quit status (tobacco): has quit using tobacco Alcohol intake: never Adopted: No Caregiver/support person: No Lives independently: No Household members: spouse Marital status: Current occupational status: employed History of recent travel: No Data Anesthesia Cardiac Studies: No Data to Display
--- NOTE | 2020-10-05 17:33 | PM.OP ---
Operative Report Date of procedure: October 05, 2020 Pre-op Diagnosis: Large left distal ureteral stone, obstruction Post-op diagnosis: same Post-op Findings: 1. Impacted stone with severe inflammatory change around the stone. 2. Atypical appearing stone with some sort of sediment adherent to the outer edge covering the more typical crystalline part Procedure Done: 1. Cystoscopy, left retrograde pyelogram 2. Left ureteroscopy, laser lithotripsy, stent Implants: 7 Trinidadian by 28 cm double-pigtail stent. No string Specimens removed/disposition: Stone fragments Pathology: Stone fragments Surgeon: Alejandrina Anesthesia: General Estimated blood loss: Minimal Urine output: Not measured Complications: No surgical complications. Less than ideal visualization of the very edematous area suspicious for impaction. Findings: Stone in the expected position. Fragmented with a 365 ?m thulium superpulse laser fiber into small fragments that were basketed and removed with grasping forceps The ureter itself was very inflamed where the stone had been located. The first wire passed went easily a second wire attempted to be passed was unsuccessful. After removal of the stone and open-ended ureteral catheter was passed over the first wire and contrast was injected for retrograde pyelogram which confirmed appropriate position of the wire and catheter. 7 Trinidadian by 28 cm double-pigtail stent left indwelling. Condition: stable Disposition: PACU Brief History: Mr. Deleon is a very pleasant 65-year-old white male who has a history of multiple urologic problems including prostate cancer and recurrent urolithiasis as well as a history of BPH/obstruction previously. Recently on surveillance KUB was found to have a large calcification in the area of the left ureter and CT scan confirmed it was in fact in the ureter but without significant obstruction. It was unknown how long the stone had been there. He had not had a lot of symptoms but did mention that he had some back pain intermittently in the past. It was recommended he undergo ureteroscopic treatment of the stone Procedure: After routine preoperative evaluation examination and obtaining of informed consent he was taken to the operating suite on 10/05/2020 general anesthesia was administered without difficulty after appropriate timeout was performed, SCDs confirmed to be functioning, preoperative antibiotics administered, beta-francis protocol confirmed. Prepped and draped in usual sterile fashion in dorsolithotomy position paying careful attention to avoiding pressure points. 21 Trinidadian cystoscope with 30 degree lens was introduced into the urethral meatus and advanced into the bladder under videoscopy. The bladder was systematically examined found to be within normal limits. An 8 Trinidadian cone-tip catheter was intubated into the left ureteral orifice for a LEFT RETROGRADE URETEROPYELOGRAM: Contrast showed normal course and caliber of the distal ureter until it reached a large filling defect consistent with a stone seen previously on CT scan and KUB. There was some delay of contrast moving proximal to the stone but ultimately it some did in the ureter proximal to it was mildly dilated. No other filling defects were identified. A flexible tip guidewire was then advanced up the right ureter easily bypassing the stone and curling in the area of the upper pole calyx. Attempt at a second guidewire was unsuccessful. It appeared to be taken a different course and curling around the stone. A 7 Trinidadian offset semirigid ureteroscope was then advanced up the LEFT ureter next to the safety wire which was secured to the drapes. The stone was encountered. Had a sort of fluffy appearing texture to the outside but with distinct hardness of the stone when poked with the laser fiber. A 365 thulium superpulse laser fiber was then utilized to fragment the stone via the dusting technique. It was followed all the way from its distal into the proximal end. It was clear during examination that there was a significant amount of edema of the ureter where the stone had been located apparently for quite some time. The stone fragments were removed with the combination of grasping forceps and a parachute basket. A second guidewire was then passed which helped facilitate passage of the scope proximal to the impacted area. No obvious additional large stone fragments were identified above the impaction site. The scope was removed and a final passage of the parachute basket removed a lot of very small pieces. An open ureteral catheter was then advanced over the safety wire and contrast was injected to confirm appropriate position the wire was replaced the catheter removed and the other wire (working wire) was removed before backloaded the cystoscope over the safety wire. A 7 Trinidadian by 28 cm double-pigtail stent was advanced over the guidewire through the cystoscope into appropriate position as confirmed via fluoroscopy and cystoscopy. The stent was confirmed to be working/draining. There were a lot of small sand particles in the bladder and most of these were flushed free through the cystoscope. The procedure was completed. He tolerated the procedure well without complications and was awakened in the operating room and returned to the cart room in stable condition. PLANS: 1. Anticipate discharge from outpatient surgery 2. I will recommend a relook before the stent is permanently removed due to the severe inflammatory changes encountered. 3. We will follow-up in about 2 weeks to further this conversation The second wire was removed.
[2020-10-05 17:41] VITALS: BP 162/104; PULSE 59; RESP 18; TEMP 36.8; O2SAT 100
[2020-10-05 17:45] VITALS: BP 130/81; PULSE 59; RESP 16; TEMP 36.7; O2SAT 98
[2020-10-05 17:54] VITALS: BP 143/95; PULSE 59; RESP 18; TEMP 36.1; O2SAT 97
--- NOTE | 2020-10-05 18:23 | ANE.PACU2 ---
Inpatient post-anesthesia follow up: Airway intact: Yes Vital signs: Temperature 97 F Pulse Rate 59 Respiratory Rate 18 Blood Pressure 143/95 Pulse Oximetry 97 Oxygen Delivery Me thod Room Air Oxygen Flow Rate 2 Fraction of Inspir ed Oxygen Hydration adequate: Yes Nausea and vomiting: No Pain level: 2 Mental status: Baseline
[2020-10-11 19:22] LABS: Stone Source LEFT URETER
== END 2020-10-05 18:20 | disposition home or self-care (01) ==
PROVIDERS: PCP Family Medicine; Visit Provider Urology
PROC: 0TJB8ZZ Inspection of Bladder, Via Natural or Artificial Opening Endoscopic (ICD-10-PCS; CPT 52000; principal; 2020-10-05 14:30)
PROC: 0TJ98ZZ Inspection of Ureter, Via Natural or Artificial Opening Endoscopic (ICD-10-PCS; CPT 52351; 2020-10-05 14:30)
PROC: (CPT 74420; 2020-10-05 14:30)
PROC: (CPT 50605; 2020-10-05 14:30)
PROC: (CPT 52356; 2020-10-05 14:30)
DX: N20.1 Calculus of ureter (principal); N13.5 Crossing vessel and stricture of ureter without hydronephrosis; I10 Essential (primary) hypertension; K21.9 Gastro-esophageal reflux disease without esophagitis; E78.5 Hyperlipidemia, unspecified; M06.9 Rheumatoid arthritis, unspecified; Z85.46 Personal history of malignant neoplasm of prostate; Z87.891 Personal history of nicotine dependence
CPT/HCPCS: 52356; 76000; 82365; 88300; C2625; J1100; J2250; J2405; J2704; J2710; J3010; J3490; J7030

== ENCOUNTER 2020-10-06 00:45 | Emergency (ER) | payer OTHER, SELFPAY ==
[2020-10-06 00:58] VITALS: BP 174/126; PULSE 68; RESP 24; TEMP 36.2; O2SAT 97; BMI 26.9
--- NOTE | 2020-10-06 01:05 | ED_ITS ---
HPI - Male Genitourinary General: Chief complaint: Urogenital-Male Stated complaint: Cant Urinate kidney stones removed 09/25 Time Seen by Provider: 10/06/20 01:04 History of Present Illness: HPI Narrative: 65-year-old male had a cystoscopy earlier today and now is unable to urinate. He called and talked to the urologist who directed him here for a leg bag. Complaint: other Onset (ago): hour(s) Location: abdomen Severity: severe Quality: aching Relieving factors: none Exacerbating factors: palpation and movement Context: recent surgery Associated symptoms: Reports nausea and urinary retention; Deny dysuria or vomiting Review of Systems Const: Denies: fever(s), chills, body aches, change in appetite, fatigue or malaise Card: Denies: chest pain, edema, dyspnea on exertion or orthopnea Resp: Denies: dyspnea, productive cough or non-productive cough GI: Reports: abdominal pain and nausea; Denies: vomiting, hematemesis, coffee ground emesis, diarrhea, constipation, bloating, hematochezia or melena : Reports: urinary urgency; Denies: flank pain, dysuria or urinary frequency PFSH ED PFSH: Medical History High risk medication use History of bladder stone CYSTOLITHOLAPAXY Hx of renal calculi Hypertension Immunization counseling Inflammatory arthritis Prostate cancer 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 Reducible left inguinal hernia Urolithiasis Surgical History H/O prostate biopsy fusion biopsy H/O prostatectomy History of colon resection History of removal of calculus of renal pelvis through percutaneous nephrostomy Hx of arthroscopy of right knee S/P left inguinal hernia repair open 03/20/2019 Family History Mother , at age 74 Cancer Colon Father , at age 86 Cancer KIDNEY CANCER Other Rheumatoid arthritis Denies family history of Diabetes CAD (coronary artery disease) Chronic kidney disease (CKD) Lung disease Hypertension Stroke Social History Quit status (tobacco): has quit using tobacco Alcohol intake: never Adopted: No Caregiver/support person: No Lives independently: No Household members: spouse Marital status: Current occupational status: employed History of recent travel: No Physical Exam Const: COMMON NORMALS: no acute distress GENERAL APPEARANCE: cooperative and comfortable ORIENTATION/CONSCIOUSNESS: Yes awake, Yes oriented to person, Yes oriented to place and Yes oriented to time HENMT: COMMON NORMALS: normocephalic, atraumatic, hearing grossly normal bilaterally and external ears normal HEAD & SCALP: normocephalic and atraumatic EXTERNAL EAR: Yes external ears normal Neck/C-Spine: COMMON NORMALS: no JVD Resp: COMMON NORMALS: normal respiratory effort, No retractions, No use of accessory muscles and clear to auscultation bilaterally AUSCULTATION: clear to auscultation bilaterally Cardio: COMMON NORMALS: no JVD, regular rate, regular rhythm and No murmurs present (Cardio) RATE: regular rate RHYTHM: regular rhythm GI: COMMON NORMALS: No hepatosplenomegaly present AUSCULTATION: Yes normoactive bowel sounds PALPATION: Yes Tenderness to palpation present (GI) (Suprapubic, bladder palpable to the level of the umbilicus), No Guarding due to palpation present (GI) and Yes No hepatosplenomegaly present Extremity: COMMON NORMALS: normal to inspection, capillary refill normal, no clubbing, cyanosis or edema, no calf tenderness and no pedal edema Neuro: SENSORIUM/ORIENTATION: Yes oriented to person, Yes oriented to place and Yes oriented to time Skin: COMMON NORMALS: no rashes or lesions noted GENERAL SKIN EXAM: no rashes or lesions noted Course Vital Signs: Vital signs: Vital Signs Temperature 97.1 F L 10/06/20 00:58 Pulse Rate 88 10/06/20 01:48 Respiratory Rate 19 H 10/06/20 01:48 Blood Pressure 168/105 10/06/20 01:48 Pulse Oximetry 99 10/06/20 01:48 MDM - Male [facility] Narrative: Medical decision making narrative: Significant relief with placement of Valdivia will discharge home on leg bag follow-up with Alejandrina Lab Data: Labs: Lab Results 10/06/20 10/06/20 Range/Units 01:11 01:20 Sodium 136 (136-145) mmol/L Potassium 4.1 (3.5-5.1) mmol/L Chloride 103 (98-107) mmol/L Carbon Dioxide 23 (22-29) mmol/L Anion Gap 14.1 (5-19) BUN 22 (8-23) mg/dL Creatinine 0.8 (0.7-1.2) mg/dL GFR Calculation 97.0 (90-130) mL/min Glucose 143 H (65-115) mg/dL Calculated Osmolal ity 288 (285-295) mOsm/k g Calcium 8.9 (8.5-10.5) mg/dL Urine Color Other (Yellow) Urine Appearance Sl hazy (CLEAR) Urine pH 6.5 (5-7) Ur Specific Gravit y 1.005 (1.005-1.030) Urine Protein 2+ H (Negative) Urine Glucose (UA) Norm (Normal) Urine Ketones Negative (Negative) Urine Blood 3+ H (Negative) Urine Nitrate Negative (Negative) Urine Bilirubin Neg (Negative) Urine Urobilinogen Norm (Negative) mg/dL Ur Leukocyte Tala ase 2+ H (Negative) Urine RBC >100 H (0-2) /hpf Urine WBC 55-80 H (0-5) /hpf Ur Squamous Epith Cells 0-4 H (0-5) /hpf Amorphous Sediment Not Reportable Urine Bacteria Trace (NONE) /hpf Discharge Plan Discharge Patient Disposition: Home Clinical Impression: Acute urinary retention, Nephrolithiasis Condition: Stable Prescriptions: New tamsulosin 0.4 mg capsule 0.4 mg PO DAILY Qty: 20 RF: 0 No Action prednisone 10 mg tablet See Rx Instructions PO .COMPLEX PRN (Reason: joint pain) Qty: 30 RF: 0 hydroxychloroquine 200 mg tablet 200 mg PO BID Qty: 60 RF: 1 amlodipine 2.5 mg tablet 2.5 mg PO DAILY@0600 Qty: 90 RF: 1 hydrochlorothiazide 50 mg tablet 50 mg PO DAILY@0600 Qty: 90 RF: 1 lisinopril 20 mg tablet 20 mg PO BID@00,1999 Qty: 180 RF: 1 meloxicam 15 mg tablet 15 mg PO DAILY@0600 Qty: 90 RF: 1 pantoprazole 40 mg tablet,delayed release (DR/EC) 40 mg PO DAILY@0600 Qty: 90 RF: 1 potassium citrate 10 mEq (1,080 mg) tablet extended release 20 meq PO TID@06,12,20 90 Days Qty: 540 RF: 1 hydralazine 25 mg tablet 25 mg PO BID@599,1999 Qty: 180 RF: 1 sildenafil 100 mg tablet 100 mg PO DAILY PRN (Reason: sexual activity) Qty: 20 RF: 12 atorvastatin 10 mg tablet 10 mg PO DAILY@1999 Qty: 90 RF: 1 metoprolol succinate 50 mg tablet extended release 24 hr 25 mg PO DAILY@0600 Qty: 90 RF: 1 cholecalciferol (vitamin D3) 50 mcg (2,000 unit) capsule 50 mcg PO DAILY Qty: 90 RF: 1 hydrocodone-acetaminophen 5-325 mg tablet 1 tab PO Q8H PRN (Reason: pain) Qty: 15 RF: 0 sulfamethoxazole-trimethoprim 800-160 mg tablet 1 tab PO BID 7 Days Qty: 14 RF: 1 Aspir-81 81 mg PO DAILY@0600 RF: 0 magnesium 30 mg Tablet 84 mg PO DAILY@0600 RF: 0 acetaminophen 325 mg Tablet 325 mg PO QID PRN (Reason: Pain) RF: 0 glucosamine HCl 500 mg Tablet 500 mg PO BID@599,1999 RF: 0 omega 7-alh-zcf-fish oil [Fish Oil] 1,000 mg (120 mg-180 mg) Capsule 1 cap PO DAILY@0600 RF: 0 fluticasone propionate 50 mcg/actuation spray,suspension 1 spray INTRANASAL DAILY PRN (Reason: unknown) RF: 0 Discharge Orders: Discharge ED (Routine); Ordered 10/06/20 Ordered By: Michael Serrano Referrals: Socorro Walsh MD [Primary Care Provider] - Patient Instructions: Opioid Safety Coding Level of Care Code ED 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
[2020-10-06 01:35] LABS: Add Urine Microscopic? YES; Bilirubin Urine Neg (Negative); Blood Urine 3+ (Negative); Glucose Urine UA Norm (Normal); Ketones Urine Negative (Negative); Leukocyte Esterase Urine 2+ (Negative); Nitrate Urine Negative (Negative); Protein Urine 2+ (Negative); Specific Gravity, Urine 1.005 (1.005-1.030); Urine Appearance SL Hazy (CLEAR); Urine Color Other (Yellow); Urobilinogen Urine Norm (Negative); pH Urine 6.5 (5-7)
[2020-10-06 01:36] LABS: Add Urine Culture? Yes; Bacteria Urine TRACE /hpf; RBC Urine >100 /hpf (0-2); Squamous Epithelial Cell Urine 0-4 /hpf (0-5); WBC Urine 55-80 /hpf (0-5)
[2020-10-06 01:40] LABS: Anion Gap 14.1 (5-19); Blood Urea Nitrogen 22 mg/dL (8-23); Calcium 8.9 mg/dL (8.5-10.5); Carbon Dioxide 23 mmol/L (22-29); Chloride 103 mmol/L (98-107); Glucose 143 mg/dL (65-115); Osmolality Calculated 288 mOsm/kg (285-295); Potassium 4.1 mmol/L (3.5-5.1); Sodium 136 mmol/L (136-145)
[2020-10-06 01:48] VITALS: BP 168/105; PULSE 88; RESP 19; O2SAT 99
--- NOTE | 2020-10-06 01:48 | PC.NURSE ---
irrigated bladder with 100 ml sterile water and 100 ml return noted to bag.
== END 2020-10-06 01:52 | disposition home or self-care (01) ==
PROVIDERS: Emergency Provider Family Medicine; PCP Family Medicine
DX: R33.9 Retention of urine, unspecified (principal); N20.0 Calculus of kidney; I10 Essential (primary) hypertension; E11.9 Type 2 diabetes mellitus without complications; I25.10 Atherosclerotic heart disease of native coronary artery without angina pectoris; Z79.82 Long term (current) use of aspirin; Z79.01 Long term (current) use of anticoagulants
CPT/HCPCS: 51702; 80048; 81001; 87086; 99283

== ENCOUNTER 2020-10-19 10:01 | Outpatient (CLI) | payer OTHER, SELFPAY ==
--- NOTE | 2020-10-19 10:00 | XRR_ITS ---
PROCEDURE INFORMATION: Exam: XR Abdomen Exam date and time: 10/19/2020 10:00 AM Age: 65 years old Clinical indication: Condition or disease; Kidney or ureter condition; Other: Urolithiasis TECHNIQUE: Imaging protocol: XR of the abdomen. Views: Frontal supine view of the abdomen. 1 View. COMPARISON: CR XR KUB [id number] 09/29/2020 2:34 PM COMPARISON MORE: CT kidney stone [id number] 10/02/2020 9:33:25 AM FINDINGS: Tubes, catheters and devices: Left ureteral stent. No definite left renal or ureteral calculi identified. Gastrointestinal tract: Normal. No bowel dilation. Bones/joints: No acute findings. XR/XR KUB [id number] IMPRESSION: Left ureteral stent. No acute findings.
== END 2020-10-19 10:02 | disposition home or self-care (01) ==
PROVIDERS: PCP Family Medicine; Visit Provider Urology
DX: N20.9 Urinary calculus, unspecified (principal); Z96.0 Presence of urogenital implants
CPT/HCPCS: 74018

== ENCOUNTER → 2020-10-26 13:07 | Outpatient (BNVA) | payer OTHER, SELFPAY | PROVIDERS: PCP Family Medicine; Visit Provider Urology | DX: Z96.0 Presence of urogenital implants (principal); Z20.822 Contact with and (suspected) exposure to COVID-19 | CPT/HCPCS: 87635 ==

== ENCOUNTER 2020-11-02 11:12 | Day surgery (SDC) | payer OTHER, SELFPAY ==
[2020-10-29 08:34] VITALS: BMI 27.1
[2020-11-02] VITALS (7 sets, daily range): BP systolic 117–134; BP diastolic 78–91; PULSE 56–64; RESP 14–16; TEMP 36.4–36.6; O2SAT 96–100
--- NOTE | 2020-11-02 | SCC_ITS ---
Procedure Done: 1. Cystoscopy, removal of left ureteral stent 2. Left retrograde ureteropyelogram 3. Left ureteroscopy, manipulation of stone 52.0 seconds of fluoroscopic guidance, for a cumulative dose of 11.19 mGy, was provided to Dr. Tinoco by the radiology department. C-arm images of the abdomen were saved for the patient's permanent record. [facility]
--- NOTE | 2020-11-02 11:16 | SC_ITS ---
WS: [id number] Exam: C-arm FL for Urology Date/Time of Exam: 11/02/2020 11:16 AM Reason For Exam: Preop left ureteroscopy C-arm images of the left abdomen are submitted for evaluation. The images depict a ureteroscope and guidewire in the left ureter. There has been some contrast opaci fication of the left renal collecting system. No obvious filling defects are identified on this limit ed study.
--- NOTE | 2020-11-02 11:16 | XR_ITS ---
WS: [id number] Exam: XR KUB [id number] Date/Time of Exam: 11/02/2020 11:22 AM Reason For Exam: Preop left ureteroscopy Comparison 10/19/2020. A left-sided ureteral stent catheter is in place appearing to be in satisfactory location. No bowel o bstruction or free air noted. No calcifications in the region of the kidneys. Visualized organ margin s are intact. Partially visualized right total hip replacement. XR/XR KUB [id number] IMPRESSION: 1. No acute abdominal finding. 2. Left-sided ureteral stent catheter in place appearing to be in appropriate l ocation.
[2020-11-02] MEDS: sodium chloride 0.9% 1,000 ML 30 ML IV (12:04)
--- NOTE | 2020-11-02 13:17 | P.HPUD_ITS ---
Surgery/Procedure H&P Update DATE OF PROCEDURE: November 02, 2020 DATE H&P PERFORMED: 10/19/20 H&P UPDATE INFORMATION: I have reviewed H&P completed within last 30 days, I have examined patient prior to procedure, No changes to prior documentation and H&P is in [facility] EMR on date indicated PREOP DIAGNOSIS: Retained ureteral stent PLANNED PROCEDURE: Operation Date: 11/02/20 13:05 Proposed Procedures p Cystoscopy 27080 49978 N28.889 Z96.0(Not Applicable) - Robby Tinoco MD s Ureteral Stent Removal(Not Applicable) - Robby Tinoco MD s Ureteroscopy(Left) - Robyb Tinoco MD s poss Ureteral Stent Placement(Not Applicable) - Robby Tinoco MD
--- NOTE | 2020-11-02 13:20 | P.OP_ITS ---
Operative Report Date of procedure: November 02, 2020 Pre-op Diagnosis: 1. Severe ureteral inflammation from previously impacted stone 2. Retained ureteral stent Post-op diagnosis: same Post-op Findings: Site well-healed and the stent was removed without difficulty Procedure Done: 1. Cystoscopy, removal of left ureteral stent 2. Left retrograde ureteropyelogram 3. Left ureteroscopy, manipulation of stone Implants: Left ureteral stent (4.5 Georgian by 28 cm double-pigtail with string attached distally) Pathology: none sent Surgeon: Alejandrina Anesthesia: General Estimated blood loss: Minimal Urine output: Not measured Complications: None Findings: The area was well-healed. A few small residual stones were identified in the ureter and these were removed with basketing via X catch basket. Condition: stable Disposition: PACU Brief History: Tanner is a very pleasant 65-year-old white male with complex history of stone disease. He has undergone bladder stone removal, ureteroscopy, ESWL and percutaneous nephrostolithotomy over a span of many years. Recently was discovered to have a pretty much asymptomatic left mid ureteral stone that was quite large and it was treated with endoscopic laser lithotripsy several weeks ago. He was found to have a severe impaction and inflammatory change in the ureter at time of treatment and a stent was left indwelling with plans for leaving it in for least 3 to 4 weeks to allow healing before reexamining with ureteroscopy and removing it permanently. Procedure: After routine preoperative evaluation examination and obtaining of informed consent he was taken to the operating suite on 11/02/2020 where general anesthesia was administered without difficulty after appropriate timeout was performed, SCDs confirmed to be functioning, preoperative antibiotics administered, beta-francis protocol confirmed. Prepped and draped in the usual sterile fashion in dorsolithotomy position paying careful attention to avoiding pressure points. 21 Georgian cystoscope with 30 degree lens was introduced into the urethra meatus and advanced into the bladder under videoscopy. The bladder was systematically examined. No stones were identified. The stent was in the expected position. A flexible tip guidewire was then advanced up the left ureter next to the stent easily bypassing the area of concern and curling in the area of the renal pelvis/upper pole calyx. Grasping forceps were then utilized to secure the stent and the stent was removed under fluoroscopic guidance with easy uncurling of the proximal aspect. No tension. The wire was secured to the drapes as a safety wire. An offset semirigid ureteroscope was then advanced up the left ureter next to the guidewire and the area of concern was encountered. There was still some inflammation but for the most part it was healed. There were also a few small stone fragments that were basketed and removed. The ureter proximal to the area of previous impaction was mildly dilated. No other abnormalities were identified. The scope was backed down to the distal ureter and contrast was injected through the scope for a: LEFT RETROGRADE URETEROPYELOGRAM. Contrast flowed easily up the left ureter with some mild narrowing at the previous area but it was clearly not restrictive. The scope easily passed through that area. There was some mild inflammatory changes on final inspection mostly from the passage of the scope and it was decided to leave a temporary small ureteral stent with string attached and plans to have removed later this week at home. Bladder was drained and the procedure was completed. He tolerated the procedure well without complications and was awakened in the operating room and returned to the recovery room in stable condition. PLANS: 1. Maintain left ureteral stent until . Have him remove it at home with the string 2. Follow-up in 2 months with KUB
[2020-11-02] MEDS: levofloxacin-dextrose 5 % 500 MG/100 ML PREMIX 100 MG IV (14:35)
[2020-11-02] MEDS: iohexol 240 mg/mL 50 mL Btl 30 ML XX (14:46)
--- NOTE | 2020-11-02 15:00 | ANES.PREANE2 ---
Pre-Anesthetic Assessment Pre-Anesthetic Assessment: Height/Weight: Height 1.8 m Weight 88.451 kg Temp Pulse Resp BP Pulse Ox 98 F 56 L 16 119/78 97 11/02/20 11:49 11/02/20 11:49 11/02/20 11:49 11/02/20 11:49 11/02/20 11:49 Preop Diagnosis: Retained ureteral stent Proposed Procedure: Operation Date: 11/02/20 13:05 Proposed Procedures p Cystoscopy 16213 75851 N28.889 Z96.0(Not Applicable) - MD willem Chaney Ureteral Stent Removal(Not Applicable) - MD willem Chaney Ureteroscopy(Left) - MD willem Chaney poss Ureteral Stent Placement(Not Applicable) - Robby Tinoco MD Was Beta Jessica taken within 24 hours: Yes Was Clonidine taken within 24 hours: N/A Last intake: Intake Last Liquid Date 11/02/20 Last Liquid Time 07:00 Last Solid Date 11/01/20 Last Solid Time 20:00 Social: Social History: No alcohol and No tobacco Exam: Pre-Anes Outpt Exam: alert, oriented x 3, clear to auscultation bilaterally and regular rate & rhythm Airway: Submandibular: WNL Cervical ROM: WNL MP: 2 Dentition: Full CV/HEM: CV/HEM: HTN GI: GI: GERD Metabolic: Metabolic: Hyperlipidemia Musc/skel: Musc/skel: OA/DJD Anesthetic Plan: ASA status: 3 Anesthesia: General Risk of > 500 ml blood loss (7ml/kg in children): No Meds/Allergies Current Medications: Current Medications Generic Name Dose Route Start Last Admin Trade Name Freq PRN Reason Stop Dose Admin Sodium Chloride 1,000 mls @ 30 ml s/hr 11/02/20 11:30 11/02/20 12:04 Sodium Chloride 0.9% IV 11/03/20 11:29 30 mls/hr .Q24H ANDRESSA Administration PFSH Anesthesia PFSH: Medical History High risk medication use History of bladder stone CYSTOLITHOLAPAXY Hx of renal calculi Hypertension Immunization counseling Inflammatory arthritis Prostate cancer 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 Reducible left inguinal hernia Urolithiasis Surgical History H/O prostate biopsy fusion biopsy H/O prostatectomy History of colon resection History of removal of calculus of renal pelvis through percutaneous nephrostomy Hx of arthroscopy of right knee S/P left inguinal hernia repair open 03/20/2019 Family History Mother , at age 74 Cancer Colon Father , at age 86 Cancer KIDNEY CANCER Other Rheumatoid arthritis Denies family history of Diabetes CAD (coronary artery disease) Chronic kidney disease (CKD) Lung disease Hypertension Stroke Social History Quit status (tobacco): has quit using tobacco Alcohol intake: never Adopted: No Caregiver/support person: No Lives independently: No Household members: spouse Marital status: Current occupational status: employed History of recent travel: No Data Anesthesia Cardiac Studies: No Data to Display
--- NOTE | 2020-11-02 15:39 | ANE.PACU2 ---
Inpatient post-anesthesia follow up: Airway intact: Yes Vital signs: Temperature 97.7 F Pulse Rate 57 Respiratory Rate 15 Blood Pressure 128/86 Pulse Oximetry 96 Oxygen Delivery Me thod Room Air Oxygen Flow Rate 8 Fraction of Inspir ed Oxygen Hydration adequate: Yes Nausea and vomiting: No Pain level: 2 Mental status: Baseline
== END 2020-11-02 16:20 | disposition home or self-care (01) ==
PROVIDERS: PCP Family Medicine; Visit Provider Urology
PROC: 0TJB8ZZ Inspection of Bladder, Via Natural or Artificial Opening Endoscopic (ICD-10-PCS; CPT 52000; principal; 2020-11-02 12:55)
PROC: (CPT 52310; 2020-11-02 12:55)
PROC: 0TJ98ZZ Inspection of Ureter, Via Natural or Artificial Opening Endoscopic (ICD-10-PCS; CPT 52351; 2020-11-02 12:55)
PROC: (CPT 50605; 2020-11-02 12:55)
DX: N20.1 Calculus of ureter (principal); Z96.0 Presence of urogenital implants; I10 Essential (primary) hypertension; E78.5 Hyperlipidemia, unspecified; K21.9 Gastro-esophageal reflux disease without esophagitis; Z87.891 Personal history of nicotine dependence
CPT/HCPCS: 52332; 52352; 74018; 76000; 96365; C2625; J1956; J2405; J2704; J3010; J3490; J7030; Q9966

== ENCOUNTER → 2021-01-11 09:40 | Outpatient (BNVA) | payer OTHER, SELFPAY | PROVIDERS: PCP Family Medicine; Visit Provider Internal Medicine Rheumatology | DX: M19.90 Unspecified osteoarthritis, unspecified site (principal); Z79.899 Other long term (current) drug therapy; R50.9 Fever, unspecified; Z20.822 Contact with and (suspected) exposure to COVID-19 | CPT/HCPCS: 80076; 81000; 82565; 85025; 86140; 87635 ==

== ENCOUNTER → 2021-01-13 16:44 | Outpatient (BNVA) | payer OTHER, SELFPAY | PROVIDERS: PCP Family Medicine; Visit Provider Nurse Practitioner Family | DX: Z20.822 Contact with and (suspected) exposure to COVID-19 (principal); R35.0 Frequency of micturition; J01.00 Acute maxillary sinusitis, unspecified; E55.9 Vitamin D deficiency, unspecified; E78.5 Hyperlipidemia, unspecified; I10 Essential (primary) hypertension | CPT/HCPCS: 80053; 80061; 82306 ==

== ENCOUNTER 2021-01-15 12:55 | Outpatient (CLI) | payer OTHER, SELFPAY ==
[2021-01-15 13:05] VITALS: BP 141/79; PULSE 58; RESP 18; TEMP 36.9; O2SAT 96; BMI 27.9
[2021-01-15 13:42] VITALS: BP 105/67; PULSE 52; RESP 18; TEMP 36.6; O2SAT 95
[2021-01-15 14:48] VITALS: BP 114/71; PULSE 53; RESP 18; TEMP 36.6; O2SAT 95
== END 2021-01-15 12:56 | disposition home or self-care (01) ==
PROVIDERS: PCP Family Medicine; Visit Provider Nurse Practitioner Family
DX: U07.1 COVID-19 (principal)
CPT/HCPCS: 96365

== ENCOUNTER 2021-01-28 08:05 | Outpatient (CLI) | payer OTHER, SELFPAY ==
--- NOTE | 2021-01-28 08:00 | XR_ITS ---
WS: [id number] Exam: XR KUB [id number] Date/Time of Exam: 01/28/2021 8:00 AM Reason For Exam: POST-OP No bowel obstruction or free air. No sign of organ enlargement. Small punctate calcification superimp oses the lower pole the left kidney and may represent a renal stone. Right total hip replacement. Mod erate DJD of the lumbar spine. XR/XR KUB [id number] IMPRESSION: 1. Punctate calcification superimposes the left renal silhouette and may repres ent a tiny calculus. 2. No acute abdominal finding.
== END 2021-01-28 08:06 | disposition home or self-care (01) ==
LOC: RAD 08:07
PROVIDERS: PCP Family Medicine; Visit Provider Urology
DX: N20.9 Urinary calculus, unspecified (principal)
CPT/HCPCS: 74018; 81003

== ENCOUNTER → 2021-06-22 11:09 | Outpatient (BNVA) | payer MEDICARE, OTHER, SELFPAY | PROVIDERS: PCP Family Medicine; Visit Provider Internal Medicine Rheumatology | DX: M19.90 Unspecified osteoarthritis, unspecified site (principal); M06.041 Rheumatoid arthritis without rheumatoid factor, right hand; M06.042 Rheumatoid arthritis without rheumatoid factor, left hand; Z79.899 Other long term (current) drug therapy; Z96.651 Presence of right artificial knee joint; Z71.89 Other specified counseling | CPT/HCPCS: 99214 ==

== ENCOUNTER → 2021-07-07 08:54 | Outpatient (BNVA) | payer MEDICARE, OTHER, SELFPAY | PROVIDERS: PCP Family Medicine; Visit Provider Nurse Practitioner Family | DX: E78.5 Hyperlipidemia, unspecified (principal); I10 Essential (primary) hypertension | CPT/HCPCS: 80053; 80061; 84443; 85025 ==

== ENCOUNTER → 2021-07-08 15:34 | Outpatient (BNVA) | payer MEDICARE, OTHER, SELFPAY | PROVIDERS: PCP Family Medicine; Visit Provider Nurse Practitioner Family | DX: M25.522 Pain in left elbow (principal) | CPT/HCPCS: 73080 ==

== ENCOUNTER → 2021-08-06 10:40 | Outpatient (BNVA) | payer MEDICARE, OTHER, SELFPAY | PROVIDERS: PCP Family Medicine; Referring Provider Nurse Practitioner Family; Visit Provider Orthopaedic Surgery | DX: M19.022 Primary osteoarthritis, left elbow (principal); M70.22 Olecranon bursitis, left elbow | CPT/HCPCS: 99213 ==

== ENCOUNTER 2021-08-23 15:08 | Outpatient (CLI) | payer MEDICARE, OTHER, SELFPAY ==
--- NOTE | 2021-08-23 15:15 | XR_ITS ---
WS: [id number] KUB, AP view, 08/23/2021 Clinical Data: CALCULUS OF KIDNEY WITH CALCULUS OF URETER Comparison: KUB, 01/28/2021. Findings: No abnormal intraabdominal masses are seen. There may be left renal calcifications. There is no dilat ated small bowel or evidence of obstruction. There is a large amount of fecal material obscuring detail over both kidneys. There is a right hip ar throplasty. Degenerative change of the lumbar spine is present XR/XR KUB [id number] Impression: Possible left renal calcifications.
[2021-08-23 16:38] LABS: Prostate Specific Antigen < 0.014 ng/mL (0-4)
== END 2021-08-23 15:09 | disposition home or self-care (01) ==
LOC: RAD 15:10
PROVIDERS: PCP Family Medicine; Visit Provider Urology
DX: C61 Malignant neoplasm of prostate (principal); N20.2 Calculus of kidney with calculus of ureter; N28.89 Other specified disorders of kidney and ureter; N39.3 Stress incontinence (female) (male); R35.0 Frequency of micturition
CPT/HCPCS: 36415; 74018; 81003; 84153; 99213

== ENCOUNTER 2021-10-18 08:01 | Outpatient (CLI) | payer MEDICARE, OTHER, SELFPAY ==
--- NOTE | 2021-10-18 08:15 | US_ITS ---
WS: [id number] RENAL ULTRASOUND HISTORY: HYDRONEPHROSIS, LEFT COMPARISON: 03/16/2016 TECHNIQUE: 2-D and color Doppler imaging of the kidney submitted. Right kidney: 11.0 cm x 5.4 cm x 4.7 cm. Normal echogenicity with no hydronephrosis or mass. Left kidney: 10.4 cm x 5.2 cm x 5.3 cm. Normal echogenicity with no hydronephrosis or mass. Aorta: Normal. Urinary Bladder: Minimal distended. US/US renal BI* [id number] IMPRESSION: Normal renal ultrasound.
[2021-10-18 14:07] LABS: Basophils % 0.5 %; Eosinophils # 0.1 10^3/uL (0.0-0.8); Eosinophils % 0.9 %; Hematocrit 37.8 % (42.0-52.0); Hemoglobin 13.1 g/dL (11.7-16.6); Lymphocytes # 1.3 10^3/uL (0.8-4.8); Lymphocytes % 19.1 %; Mean Corpuscular HGB Conc 34.7 g/dL (30.0-36.0); Mean Corpuscular Hemoglobin 30.6 pg (28.0-34.0); Mean Corpuscular Volume 88.3 fl (80-94); Monocytes # 0.4 10^3/uL (0.2-0.9); Monocytes % 5.7 %; Neutrophils # 4.88 10^3/uL (1.8-7.7); Neutrophils % 73.3 %; Nucleated Red Blood Cells % 0 %; Platelet Count 214 10^3/cmm (130-400); Red Blood Count 4.28 10^6/uL (4.1-5.3); Red Cell Distribution Width 12.8 % (12.1-15.1); White Blood Count 6.7 10^3/uL (4.0-10.0)
[2021-10-18 14:29] LABS: Alanine Aminotransferase 16 U/L (0-41); Albumin Level 4.3 g/dL (3.5-5.2); Alkaline Phosphatase 75 IU/L (40-130); Aspartate Amino Transferase 22 U/L (0-40); Globulin 2.2 g/dL (1.3-4.6); Glomerular Filtration Rate 96.7 mL/min (90-130); Total Bilirubin 0.4 mg/dL (0.15-1.2); Total Protein 6.5 g/dL (6.6-8.7)
== END 2021-10-18 08:02 | disposition home or self-care (01) ==
LOC: RAD 08:02
PROVIDERS: Internal Medicine Rheumatology; PCP Family Medicine; Visit Provider Urology
DX: N13.30 Unspecified hydronephrosis (principal); M06.041 Rheumatoid arthritis without rheumatoid factor, right hand; M06.042 Rheumatoid arthritis without rheumatoid factor, left hand; M19.90 Unspecified osteoarthritis, unspecified site; Z79.899 Other long term (current) drug therapy; N28.89 Other specified disorders of kidney and ureter; C61 Malignant neoplasm of prostate; N20.2 Calculus of kidney with calculus of ureter; M54.12 Radiculopathy, cervical region; Z96.651 Presence of right artificial knee joint; Z82.61 Family history of arthritis; Z71.89 Other specified counseling; N20.9 Urinary calculus, unspecified
CPT/HCPCS: 36415; 76770; 80076; 81003; 82565; 85025; 86140; 99213; 99214

== ENCOUNTER → 2021-12-08 07:54 | Outpatient (BNVA) | payer MEDICARE, OTHER, SELFPAY | PROVIDERS: PCP Family Medicine; Referring Provider Internal Medicine Rheumatology; Visit Provider Specialist | DX: G56.03 Carpal tunnel syndrome, bilateral upper limbs (principal) | CPT/HCPCS: 95910; 95912 ==

== ENCOUNTER → 2021-12-21 10:52 | Outpatient (BNVA) | payer MEDICARE, OTHER, SELFPAY | PROVIDERS: PCP Family Medicine; Referring Provider Internal Medicine Rheumatology; Visit Provider Orthopaedic Surgery | DX: G56.03 Carpal tunnel syndrome, bilateral upper limbs (principal) | CPT/HCPCS: 99213 ==

== ENCOUNTER 2022-01-27 08:15 | Day surgery (SDC) | payer MEDICARE, OTHER, SELFPAY ==
[2022-01-26 13:24] VITALS: BMI 26.4
[2022-01-27] VITALS (7 sets, daily range): BP systolic 163–184; BP diastolic 85–96; PULSE 49–77; RESP 14–18; TEMP 36.2–36.6; O2SAT 98–100
--- NOTE | 2022-01-27 09:08 | ANES.PREANE2 ---
Pre-Anesthetic Assessment Height/Weight: Height 1.79 m Weight 84.822 kg Temp Pulse Resp BP Pulse Ox O2 Del Method 97.8 F 50 L 16 180/88 100 01/27/22 08:32 01/27/22 08:32 01/27/22 08:32 01/27/22 08:32 01/27/22 08:32 01/27/22 08:45 Preop Diagnosis: Left carpal tunnel syndrome Operation Date: 01/27/22 09:50 Proposed Procedures p left carpal tunnel release 80815,G56.03(Left) - Shayne Schaeffer MD Familial anesthetic complications: None Was Beta Jessica taken within 24 hours: N/A Was Clonidine taken within 24 hours: N/A Last intake: Intake Last Liquid Date 01/26/22 Last Liquid Time 20:00 Last Solid Date 01/26/22 Last Solid Time 21:00 Social No alcohol and No tobacco Exam alert, oriented x 3, clear to auscultation bilaterally and regular rate & rhythm Airway Mallampati: Class II Dentition: full CV/HEM Atrial Fibrillation and Hypertension GI Gastroesophageal Reflux [place] [facility] [place] Osteoarthritis/DJD Anesthetic Plan ASA status: 3 Anesthesia: General Risk of > 500 ml blood loss (7ml/kg in children): No Medications/Allergies Home Medications Medication Instructions Recorded Confirmed Last Taken Type Aspir-81 81 mg PO DAILY@0600 03/19/19 01/26/22 01/22/22 History acetaminophen 325 mg tablet 325 mg PO QID PRN Pain 03/19/19 01/26/22 01/22/22 History glucosamine HCl 500 mg tablet 500 mg PO BID@0603/19/19 01/26/22 01/22/22 History magnesium 30 mg tablet 84 mg PO DAILY@0600 03/19/19 01/26/22 01/26/22 History omega 5-ijd-sfc-fish oil 1,000 mg 1 cap PO DAILY@0600 03/19/19 01/26/22 01/22/22 History (120 mg-180 mg) capsule (Fish Oil) fluticasone propionate 50 1 spray intranasal DAILY PRN 03/10/20 01/26/22 01/25/22 History mcg/actuation nasal unknown spray,suspension sildenafil 100 mg tablet 100 mg PO DAILY PRN sexual 03/31/21 11/16/22 1 Day Ago Rx activity #20 tabs ~10/04/20 cholecalciferol (vitamin D3) 50 50 mcg PO DAILY #90 caps 06/17/20 01/26/22 01/26/22 Rx mcg (2,000 unit) capsule albuterol sulfate 90 mcg/actuation 2 puff inhalation QID PRN 02/03/21 01/26/22 12/15/21 Rx aerosol inhaler (ProAir HFA) shortness of breath or wheezing #8.5 grams budesonide-formoterol HFA 160 2 puff inhalation Q12H #10.2 grams 02/03/21 01/26/22 01/20/22 Rx mcg-4.5 mcg/actuation aerosol inhaler (Symbicort) potassium citrate 10 mEq (1,080 20 meq PO TID@06,12,20 90 days 07/08/21 01/26/22 01/26/22 Rx mg) tablet,extended release #540 tabs lisinopril 20 mg tablet 20 mg PO BID@0600,1999 #180 tabs 07/26/21 01/26/22 01/26/22 Rx loratadine 10 mg tablet (Allergy 10 mg PO DAILY 08/23/21 01/26/22 01/26/22 History Relief (loratadine)) sulfasalazine 500 mg tablet 0.5 g PO BID #60 tabs 10/18/21 01/26/22 01/19/22 Rx amlodipine 2.5 mg tablet 2.5 mg PO DAILY 01/26/22 01/26/22 01/22/22 History atorvastatin 10 mg tablet 10 mg PO DAILY 01/26/22 01/26/22 01/26/22 History hydralazine 25 mg tablet 25 mg PO BID 01/26/22 01/26/22 01/26/22 History hydrochlorothiazide 50 mg tablet 50 mg PO DAILY 01/26/22 01/26/22 01/26/22 History meloxicam 15 mg tablet 15 mg PO DAILY 01/26/22 01/26/22 01/22/22 History metoprolol succinate 50 mg 50 mg PO DAILY 01/26/22 01/26/22 01/27/22 06:00 History tablet,extended release 24 hr pantoprazole 40 mg tablet,delayed 40 mg PO DAILY 01/26/22 01/26/22 01/26/22 History release Allergies Allergy/AdvReac Type Severity Reaction Status Date / Time celecoxib [From Celebrex] AdvReac COULDNT Verified 01/13/22 15:00 WALK [facility] Anesthesia Medical History Cervical radiculopathy Hammer toes of both feet High risk medication use History of bladder stone CYSTOLITHOLAPAXY Hx of renal calculi Hypertension Immunization counseling Inflammatory arthritis Prostate cancer 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 Reducible left inguinal hernia Seronegative rheumatoid arthritis of both hands Urolithiasis Surgical History H/O prostate biopsy fusion biopsy H/O prostatectomy History of colon resection History of removal of calculus of renal pelvis through percutaneous nephrostomy Hx of arthroscopy of right knee S/P left inguinal hernia repair open 03/20/2019 Family History Mother , at age 74 Cancer Colon Father , at age 86 Cancer KIDNEY CANCER Other Rheumatoid arthritis Denies family history of Diabetes CAD (coronary artery disease) Chronic kidney disease (CKD) Lung disease Hypertension Stroke Social History Smoking and tobacco status: former smoker (quit 35 years ago) Quit status (tobacco): has quit using tobacco Year quit tobacco: 35 yrs ago Alcohol intake: never Adopted: No Caregiver/support person: No Lives independently: No Household members: spouse Marital status: Current occupational status: employed History of recent travel: No Data Anesthesia 01/27/22 08:53 Cardiac Studies: No Data to Display
[2022-01-27] MEDS: sodium chloride 0.9% 1,000 ML 30 ML IV (09:27)
[2022-01-27 09:30] LABS: Anion Gap 12.3 (5-19); Blood Urea Nitrogen 22 mg/dL (8-23); Calcium 9.3 mg/dL (8.5-10.5); Carbon Dioxide 29 mmol/L (22-29); Chloride 105 mmol/L (98-107); Glomerular Filtration Rate 96.7 mL/min (90-130); Glucose 99 mg/dL (65-115); Osmolality Calculated 297 mOsm/kg (285-295); Potassium 4.3 mmol/L (3.5-5.1); Sodium 142 mmol/L (136-145)
--- NOTE | 2022-01-27 10:00 | P.HP_ITS ---
Same Day Surgery H&P Indication for Procedure/HPI DATE OF PROCEDURE: January 27, 2022 CHIEF COMPLAINT/INDICATIONFOR SURGICAL PROCEDURE: Left carpal tunnel syndrome PREOP DIAGNOSIS: Left carpal tunnel syndrome PLANNED PROCEDURE: Operation Date: 01/27/22 09:50 Proposed Procedures p left carpal tunnel release 38324,G56.03(Left) - Shayne Schaeffer MD History of left hand numbness and tingling. He states that he has had numbness and tingling to his left more than his right hand hand.? He states it involves the left hand more than the right.? It involves the index long and ring finger of both hands.. He states that his hand will go numb constantly. He states that his pain is worse at night. He states that his numbness and pain will wake him up throughout the night. He states that he has tried tylenol without relief. He states that he wears a brace to his hand without relief. He stats that when he is driving his hand will shoot sharp pains. Medications/Allergies* Home Medications Medication Instructions Recorded Confirmed Type Aspir-81 81 mg PO DAILY@0600 03/19/19 01/26/22 History acetaminophen 325 mg tablet 325 mg PO QID PRN Pain 03/19/19 01/26/22 History glucosamine HCl 500 mg tablet 500 mg PO BID@06,199903/19/19 01/26/22 History magnesium 30 mg tablet 84 mg PO DAILY@0600 03/19/19 01/26/22 History omega 9-uur-wla-fish oil 1,000 mg 1 cap PO DAILY@0600 03/19/19 01/26/22 History (120 mg-180 mg) capsule (Fish Oil) fluticasone propionate 50 1 spray intranasal DAILY PRN 03/10/20 01/26/22 History mcg/actuation nasal unknown spray,suspension loratadine 10 mg tablet (Allergy 10 mg PO DAILY 08/23/21 01/26/22 History Relief (loratadine)) amlodipine 2.5 mg tablet 2.5 mg PO DAILY 01/26/22 01/26/22 History atorvastatin 10 mg tablet 10 mg PO DAILY 01/26/22 01/26/22 History hydralazine 25 mg tablet 25 mg PO BID 01/26/22 01/26/22 History hydrochlorothiazide 50 mg tablet 50 mg PO DAILY 01/26/22 01/26/22 History meloxicam 15 mg tablet 15 mg PO DAILY 01/26/22 01/26/22 History metoprolol succinate 50 mg 50 mg PO DAILY 01/26/22 01/26/22 History tablet,extended release 24 hr pantoprazole 40 mg tablet,delayed 40 mg PO DAILY 01/26/22 01/26/22 History release Allergies/Adverse Reactions Allergy/AdvReac Type Severity Reaction Status Date / Time celecoxib [From Celebrex] AdvReac COULDNT Verified 01/13/22 15:00 WALK Current Medications: Generic Name Dose Route Start Last Admin Trade Name Freq PRN Reason Stop Dose Admin Sodium Chloride 1,000 mls @ 30 mls/hr 01/27/22 08:30 01/27/22 09:27 Sodium Chloride 0.9% IV 01/28/22 08:29 30 mls/hr .Q24H ANDRESSA Administration Pertinent History/Comorbid Conditions* Medical History (Updated 01/13/22 @ 15:41 by ANDREY Rosales) Cervical radiculopathy Hammer toes of both feet High risk medication use History of bladder stone CYSTOLITHOLAPAXY Hx of renal calculi Hypertension Immunization counseling Inflammatory arthritis Prostate cancer 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 Reducible left inguinal hernia Seronegative rheumatoid arthritis of both hands Urolithiasis Surgical History (Updated 03/10/20 @ 13:23 by Shayne Schaeffer MD) H/O prostate biopsy fusion biopsy H/O prostatectomy History of colon resection History of removal of calculus of renal pelvis through percutaneous nephrostomy Hx of arthroscopy of right knee S/P left inguinal hernia repair open 03/20/2019 Family History (Updated 09/15/20 @ 09:47 by Josefina Deleon LPN) Father, at age 86 Mother, at age 74 Rheumatoid arthritis Cancer Mother Colon Father KIDNEY CANCER Denies family history of Diabetes CAD (coronary artery disease) Chronic kidney disease (CKD) Lung disease Hypertension Stroke Social History Smoking and tobacco status: former smoker (quit 35 years ago) Quit status (tobacco): has quit using tobacco Year quit tobacco: 35 yrs ago Alcohol intake: never Adopted: No Caregiver/support person: No Lives independently: No Household members: spouse Marital status: Current occupational status: employed History of recent travel: No Pertinent Exam Findings alert, oriented x 3, clear to auscultation bilaterally, regular rate & rhythm, operative site marked and procedure specific exam findings Left wrist wrist can be dorsiflexed 60 degrees and palmar flex 60 degrees. He can supinate 60 degrees and pronate 60 degrees Can reach a complete clenched fist as well as extend his digits He has diminished sensation in the index long and ring finger of the left hand but fairly normal sensation of the right He has a sharp Tinel's and compression test across both wrist. 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
[2022-01-27] MEDS: ceFAZolin 2,000 MG in sodium chloride 0.9% (plus) 50 ML 100 MG IV (10:11)
--- NOTE | 2022-01-27 10:59 | PM.OP ---
Operative Report Date of procedure: January 27, 2022 Pre-op diagnosis: Preop Diagnosis Left carpal tunnel syndrome Post-op diagnosis: same Post-op diagnosis: Same Procedure done: Left carpal tunnel release Pathology: none sent Surgeon: Shayne Schaeffer Anesthesia: Nerve Block (Jessica block) Estimated blood loss (mL): 2 Tourniquet time (min): 20 Findings: No masses or space-occupying lesions were seen within the carpal tunnel Condition: stable Disposition: PACU Procedure: Patient was taken to the operating room and anesthesia provided by the anesthesia service. She was prepped and draped with the arm exposed. A timeout was performed. A 3 cm long incision was made in line with the fourth ray from the distal edge of the carpal tunnel extending proximally. The subcutaneous fat and palmar fascia was divided with a scalpel blade. Under loupe magnification the ulnar neurovascular bundle was identified distally. A hemostat could be passed under the transverse carpal ligament allowing the distal 25% to be divided. A slotted guide was then passed beneath the transverse carpal ligament and the middle 50% divided. Blunt scissors were then passed over the guide freeing the proximal ligament. The tourniquet was deflated. Hemostasis provided with electrocautery. Wound edges were infiltrated with 10 cc of a half percent Marcaine solution. Skin edges were reapproximated with 3-0 Prolene. Sterile dressings were applied. The patient was taken to the recovery room in stable condition
[2022-01-27] MEDS: HYDROcodone-acetaminophen 5-325 mg Tablet 1 TAB PO (11:32)
--- NOTE | 2022-01-27 12:29 | ANE.PACU2 ---
Inpatient post-anesthesia follow up: Airway intact: Yes Vital signs: Temperature 97.3 F Pulse Rate 77 Respiratory Rate 18 Blood Pressure 168/92 Pulse Oximetry 99 Oxygen Delivery Me thod Room Air Oxygen Flow Rate Fraction of Inspir ed Oxygen Hydration adequate: Yes Nausea and vomiting: No Pain level: 1 Mental status: Baseline
== END 2022-01-27 12:10 | disposition home or self-care (01) ==
PROVIDERS: Anesthesiology; PCP Family Medicine; Visit Provider Orthopaedic Surgery
PROC: (CPT 64721; principal; 2022-01-27 09:50)
DX: G56.02 Carpal tunnel syndrome, left upper limb (principal); I48.91 Unspecified atrial fibrillation; I10 Essential (primary) hypertension; K21.9 Gastro-esophageal reflux disease without esophagitis; Z79.82 Long term (current) use of aspirin; Z79.899 Other long term (current) drug therapy; Z85.46 Personal history of malignant neoplasm of prostate; Z87.891 Personal history of nicotine dependence
CPT/HCPCS: 64721; 36415; 80048; J0360; J0690; J2250; J2704; J3490; J7030

== ENCOUNTER → 2022-02-09 13:23 | Outpatient (BNVA) | payer MEDICARE, OTHER, SELFPAY | PROVIDERS: PCP Family Medicine; Visit Provider Nurse Practitioner Family | DX: M79.89 Other specified soft tissue disorders (principal) | CPT/HCPCS: 99213 ==

== ENCOUNTER 2022-02-15 10:41 | Outpatient (CLI) | payer MEDICARE, OTHER, SELFPAY ==
--- NOTE | 2022-02-15 11:00 | USCV_ITS ---
Fortunato Deleon Age: 66 Gender: M : 1955 Exam Date: 02/15/2022 10:57 Ordering Phys: Lois Clark MEDICAL LABORATORY SCIENTIST MEDICAL LABORATORY SCIENTIST Technologist: CT Exam Location: [facility] – [place] Indication: left le swelling PROCEDURES: . Venous duplex imaging was performed in only the left lower extremity. The following venous structures were evaluated: common femoral vein, profunda vein, proximal portion of the greater saphenous vein, superficial femoral vein, and the popliteal vein. In addition, the posterior tibial and peroneal trunk were evaluated. Serial compression, augmentation maneuvers, and spectral Doppler flow evaluation were performed. FINDINGS: no dvt CONCLUSIONS No evidence of left lower extremity DVT. Howard Tsang MD (Electronically Signed) Final Date: 15 February 2022 12:33 S
[2022-02-15 13:28] LABS: Prostate Specific AG Urology < 0.01 ng/mL (0-4)
== END 2022-02-15 10:42 | disposition home or self-care (01) ==
LOC: RAD 10:43
PROVIDERS: Urology; PCP Family Medicine; Visit Provider Nurse Practitioner Family
DX: C61 Malignant neoplasm of prostate (principal); M79.89 Other specified soft tissue disorders; M79.632 Pain in left forearm
CPT/HCPCS: 36415; 84153; 93971

== ENCOUNTER → 2022-02-16 12:44 | Outpatient (BNVA) | payer MEDICARE, OTHER, SELFPAY | PROVIDERS: PCP Family Medicine; Visit Provider Internal Medicine Rheumatology | DX: M06.041 Rheumatoid arthritis without rheumatoid factor, right hand (principal); M06.042 Rheumatoid arthritis without rheumatoid factor, left hand; Z79.899 Other long term (current) drug therapy; Z71.89 Other specified counseling; Z98.890 Other specified postprocedural states; Z96.651 Presence of right artificial knee joint; Z82.61 Family history of arthritis; M19.041 Primary osteoarthritis, right hand; M19.042 Primary osteoarthritis, left hand | CPT/HCPCS: 99214 ==

== ENCOUNTER 2022-02-22 14:17 | Outpatient (CLI) | payer MEDICARE, OTHER, SELFPAY ==
--- NOTE | 2022-02-22 15:22 | XR_ITS ---
WS: [id number] KUB, AP view, 02/22/2022 Clinical Data: STONES Comparison: None. Findings: No abnormal intraabdominal masses are seen. There are probable left renal calcifications. The right k idney is obscured by overlying fecal material. There is no dilatated small bowel or evidence of obstr uction. There is a right hip arthroplasty and degenerative change of the lumbar vertebral bodies. XR/XR KUB [id number] Impression: Left renal calcifications.
== END 2022-02-22 14:18 | disposition home or self-care (01) ==
LOC: RAD 14:21
PROVIDERS: PCP Family Medicine; Visit Provider Urology
DX: N13.30 Unspecified hydronephrosis (principal); N20.9 Urinary calculus, unspecified; C61 Malignant neoplasm of prostate; N20.2 Calculus of kidney with calculus of ureter
CPT/HCPCS: 74018; 81003; 99213

== ENCOUNTER → 2022-02-23 07:53 | Outpatient (BNVA) | payer MEDICARE, OTHER, SELFPAY | PROVIDERS: PCP Family Medicine; Visit Provider Nurse Practitioner Family | DX: Z98.890 Other specified postprocedural states (principal) | CPT/HCPCS: 99024; 99213 ==

== ENCOUNTER 2022-02-28 06:00 | Outpatient (RCR) | payer MEDICARE, OTHER, SELFPAY | END 2022-03-12 23:59 | disposition home or self-care (01) | LOC: TOT 06:00 | PROVIDERS: PCP Family Medicine; Visit Provider Nurse Practitioner Family | DX: G56.02 Carpal tunnel syndrome, left upper limb (principal) | CPT/HCPCS: 97110; 97140; 97165; 97530 ==

== ENCOUNTER 2022-03-13 06:00 | Outpatient (RCR) | payer MEDICARE, OTHER, SELFPAY | END 2022-04-12 23:59 | disposition home or self-care (01) | LOC: TOT 06:00 | PROVIDERS: PCP Family Medicine; Visit Provider Nurse Practitioner Family | DX: G56.02 Carpal tunnel syndrome, left upper limb (principal) | CPT/HCPCS: 97110; 97140; 97168; 97530; 97535 ==

== ENCOUNTER → 2022-04-04 08:20 | Outpatient (BNVA) | payer MEDICARE, OTHER, SELFPAY | PROVIDERS: PCP Family Medicine; Visit Provider Nurse Practitioner Family | DX: I10 Essential (primary) hypertension (principal); E78.5 Hyperlipidemia, unspecified; N52.31 Erectile dysfunction following radical prostatectomy | CPT/HCPCS: 80053; 80061; 84443; 85025 ==

== ENCOUNTER → 2022-04-13 12:29 | Outpatient (BNVA) | payer MEDICARE, OTHER, SELFPAY | PROVIDERS: PCP Family Medicine; Visit Provider Nurse Practitioner Family | DX: Z98.890 Other specified postprocedural states (principal); G56.03 Carpal tunnel syndrome, bilateral upper limbs | CPT/HCPCS: 99024; 99214 ==

== ENCOUNTER → 2022-04-19 15:03 | Outpatient (BNVA) | payer MEDICARE, OTHER, SELFPAY | PROVIDERS: PCP Family Medicine; Visit Provider Nurse Practitioner Family | DX: M54.12 Radiculopathy, cervical region (principal) | CPT/HCPCS: 72040 ==

== ENCOUNTER 2022-05-17 07:01 | Outpatient (CLI) | payer MEDICARE, OTHER, SELFPAY ==
--- NOTE | 2022-05-17 07:15 | MR_ITS ---
WS: [id number] MRI CERVICAL SPINE NONCONTRAST HISTORY: M54.2 - Cervicalgia COMPARISON: None available. Technique: Multiplanar, multisequence noncontrast imaging of the cervical spine. Straightening and scoliosis of the cervical spine. 2 mm anterolisthesis of C3 and C4. 2 mm retrolisth esis of C6 and anterolisthesis of C7. Diffusely desiccated disc spaces. No acute marrow edema or fracture. Circumferential osteophytic ridg ing around the cervical vertebral bodies. Craniocervical junction, C1 and C2 relationship, odontoid process and soft tissues are normal. C2-C3: Moderate annular disc bulging and osteophytic ridging with facet arthritis. Mild LEFT foramina l stenosis. C3-C4: Diffuse osteophytic ridging, annular disc bulging and facet arthritis. Mild central with moder ate bilateral foraminal stenosis. C4-C5: Moderate annular disc bulging with osteophytic ridging and facet arthritis. Mild central with moderate bilateral foraminal stenosis. C5-C6: Marked osteophytic ridging around the vertebral bodies encroaching into the foramina. Posterio r displacement of the exiting nerve roots. Bilateral paracentral disc osteophyte complexes. Moderate to severe central and bilateral foraminal stenosis. C6-C7: Diffuse osteophytic ridging and disc bulging with facet arthritis. Moderate central and bilate ral foraminal stenosis. C7-T1: Diffuse disc bulging with bilateral foraminal osteophytes. T1-T2: Diffuse disc bulging with mild central and bilateral foraminal stenosis. Disc osteophyte in th e RIGHT foramen. Paraspinal soft tissue are normal. MR/MR cervical spin wo con* [id number] IMPRESSION: 1. Advanced degenerative disc disease and spondylitic changes throughout the c ervical spine. 2. Multilevel central and foraminal stenosis due to combination of disc, osteo phyte and facet disease. 3. Mild central with moderate bilateral foraminal stenosis at C3-4 and C4-5. 4. Moderate to severe central and bilateral foraminal stenosis at C5-6. 5. Moderate central and bilateral foraminal stenosis at C6-7. 6. Mild central and bilateral foraminal stenosis at T1-2.
== END 2022-05-17 07:02 | disposition home or self-care (01) ==
LOC: RAD 07:04
PROVIDERS: PCP Family Medicine; Visit Provider Nurse Practitioner Family
DX: M50.30 Other cervical disc degeneration, unspecified cervical region (principal); M48.02 Spinal stenosis, cervical region; M25.78 Osteophyte, vertebrae; M48.04 Spinal stenosis, thoracic region
CPT/HCPCS: 72141

== ENCOUNTER → 2022-05-24 12:58 | Outpatient (BNVA) | payer MEDICARE, OTHER, SELFPAY | PROVIDERS: PCP Family Medicine; Visit Provider Internal Medicine Rheumatology | DX: M06.041 Rheumatoid arthritis without rheumatoid factor, right hand (principal); M06.042 Rheumatoid arthritis without rheumatoid factor, left hand; Z79.899 Other long term (current) drug therapy; G56.03 Carpal tunnel syndrome, bilateral upper limbs; Z71.89 Other specified counseling; M47.22 Other spondylosis with radiculopathy, cervical region | CPT/HCPCS: 99214 ==

== ENCOUNTER → 2022-05-25 08:15 | Outpatient (BNVA) | payer MEDICARE, OTHER, SELFPAY | PROVIDERS: PCP Family Medicine; Visit Provider Orthopaedic Surgery | DX: G56.02 Carpal tunnel syndrome, left upper limb (principal); Z47.89 Encounter for other orthopedic aftercare | CPT/HCPCS: 99213 ==

== ENCOUNTER → 2022-06-07 15:43 | Outpatient (BNVA) | payer MEDICARE, OTHER, SELFPAY | PROVIDERS: PCP Family Medicine; Referring Provider Nurse Practitioner Family; Visit Provider Orthopaedic Surgery | DX: M47.22 Other spondylosis with radiculopathy, cervical region (principal); M48.02 Spinal stenosis, cervical region | CPT/HCPCS: 72050; 99204 ==

== ENCOUNTER 2022-06-17 09:48 | Observation (INO) | payer MEDICARE, OTHER, SELFPAY ==
[2022-06-17] VITALS (11 sets, daily range): BP systolic 113–151; BP diastolic 73–93; PULSE 42–68; RESP 14–19; TEMP 36.4–36.6; O2SAT 95–100
--- NOTE | 2022-06-17 10:11 | ECG_ITS ---
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 Measurements Intervals [place] Rate: 55 P: 68 ME: 174 QRS: -17 QRSD: 88 T: 60 QT: 394 QTc: 380 Interpretive Statements SINUS BRADYCARDIA Compared to ECG 07/25/2015 08:12:57 Sinus rhythm no longer present ST (T wave) deviation no longer present Electronically Signed On 06-17-2022 21:23:50 CDT by Faith Chen M.D. [id number]
--- NOTE | 2022-06-17 10:17 | ED_ITS ---
HPI - Chest Pain General: Chief Complaint: Chest Pain Stated Complaint: Blood Pressure high, Chest Discomfort, High HR Time Seen by Provider: 06/17/22 10:08 Source: patient Mode of arrival: ambulatory History of Present Illness: 67-year-old male who presents emergency room complaining of rapid heart rates. He has a history of A-fib in the past intermittently he had recorded heart rates in the 120s. This resolved spontaneously. Patient states he remotely has had a history of A-fib but is not on any anticoagulation has not had any problems recently until this morning. He is on metoprolol succinate he takes 50 mg daily. No chest pain no symptoms at this time MD complaint: chest heaviness Onset (ago): hour(s) Timing of current episode: episodic Prior episodes: Yes Onset: during rest Pain location: left chest Pain radiation: none Severity: mild Quality: heaviness Relieving factors: nothing Exacerbating factors: nothing Associated symptoms: Deny abdominal pain, diaphoresis, dyspnea, fever(s), leg edema, nausea, palpitations, sense of impending doom, syncope or vomiting Treatment prior to arrival: none Review of Systems Const: Denies: fever(s), chills, fatigue, malaise or diaphoresis ENMT: Denies: throat pain, ear or mastoid pain, nasal discharge or nasal congestion Card: Denies: palpitations or syncope Resp: Denies: dyspnea GI: Denies: abdominal pain, nausea or vomiting : Denies: flank pain, dysuria, urinary frequency or urinary urgency Musc: Denies: neck pain or back pain Skin/Breast: Denies: rash or pruritus PFSH ED PFSH: Medical History Cervical radiculopathy Cervical radiculopathy due to osteoarthritis of spine Hammer toes of both feet High risk medication use History of bladder stone CYSTOLITHOLAPAXY Hx of renal calculi Hypertension Immunization counseling Inflammatory arthritis Prostate cancer 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 Reducible left inguinal hernia Seronegative rheumatoid arthritis of both hands Urolithiasis Surgical History H/O prostate biopsy fusion biopsy H/O prostatectomy History of colon resection History of removal of calculus of renal pelvis through percutaneous nephrostomy Hx of arthroscopy of right knee S/P left inguinal hernia repair open 03/20/2019 Family History Mother , at age 74 Cancer Colon Father , at age 86 Cancer KIDNEY CANCER Other Rheumatoid arthritis Denies family history of Diabetes CAD (coronary artery disease) Chronic kidney disease (CKD) Lung disease Hypertension Stroke Social History Smoking and tobacco status: former smoker Quit status (tobacco): has quit using tobacco Year quit tobacco: 35 yrs ago Alcohol intake: never Adopted: No Caregiver/support person: No Lives independently: No Household members: spouse Marital status: Current occupational status: employed Physical Exam Const: GENERAL APPEARANCE: cooperative and comfortable ORIENTATION/CONSCIOUSNESS: Yes awake, Yes oriented to person, Yes oriented to place and Yes oriented to time HENMT: COMMON NORMALS: normocephalic, atraumatic and hearing grossly normal bilaterally HEAD & SCALP: normocephalic and atraumatic Resp: COMMON NORMALS: normal respiratory effort, No retractions, No use of accessory muscles and clear to auscultation bilaterally AUSCULTATION: clear to auscultation bilaterally Cardio: COMMON NORMALS: regular rate, regular rhythm and No murmurs present (Cardio) RATE: regular rate RHYTHM: regular rhythm GI: COMMON NORMALS: Soft to palpation and No hepatosplenomegaly present AUSCULTATION: Yes normoactive bowel sounds PALPATION: Yes Soft to palpation, No Tenderness to palpation present (GI), No Guarding due to palpation present (GI) and Yes No hepatosplenomegaly present Extremity: COMMON NORMALS: normal to inspection, capillary refill normal, no clubbing, cyanosis or edema, no calf tenderness and no pedal edema Neuro: SENSORIUM/ORIENTATION: Yes oriented to person, Yes oriented to place and Yes oriented to time Skin: COMMON NORMALS: no rashes or lesions noted GENERAL SKIN EXAM: no rashes or lesions noted Course Vital Signs: Vital signs: Vital Signs Temperature 97.6 F 06/17/22 09:54 Pulse Rate 42 L 06/17/22 13:36 Respiratory Rate 18 06/17/22 13:36 Blood Pressure 145/93 06/17/22 13:36 Pulse Oximetry 99 06/17/22 13:36 Oxygen Delivery Me thod 06/17/22 13:00 MDM - Chest Pain Medical Decision Making At home patient documented multiple heart rates in the 120s and above here he has heart rates in the 40s he taken his usual dose of metoprolol which has not changed recently. Alexis concern with discharging him home with medication changes that about the time his metoprolol was due to it sounds as if he had an episode of A-fib with RVR it was resolved by the metoprolol but the dose he is using seems to be causing severe bradycardia. Patient will be admitted for observation of medication adjustments for tachybradycardia syndrome. Medical Records I reviewed the patient's medical records. Lab Data I reviewed the patient's lab results. 06/17/22 10:24 06/17/22 10:24 Radiology Impressions Chest X-Ray 06/17/22 11:50 IMPRESSION: No acute chest abnormality. Laboratory Results WBC 5.0 10^3/uL (4.0-10.0) 06/17/22 10:24 RBC 4.84 10^6/uL (4.1-5.3) 06/17/22 10:24 Hgb 14.2 g/dL (11.7-16.6) 06/17/22 10:24 Hct 43.3 % (42.0-52.0) 06/17/22 10:24 MCV 89.5 fl (80-94) 06/17/22 10:24 MCH 29.3 pg (28.0-34.0) 06/17/22 10:24 MCHC 32.8 g/dL (30.0-36.0) 06/17/22 10:24 RDW 12.7 % (12.1-15.1) 06/17/22 10:24 Plt Count 228 10^3/cmm (130-400) 06/17/22 10:24 MPV 10.4 fL (7.4-10.4) 06/17/22 10:24 Neut % (Auto) 54.2 % 06/17/22 10:24 Lymph % (Auto) 26.4 % 06/17/22 10:24 [place] % (Auto) 8.9 % 06/17/22 10:24 Eos % (Auto) 9.3 % 06/17/22 10:24 Baso % (Auto) 1.0 % 06/17/22 10:24 Neut # (Auto) 2.70 10^3/uL (1.8-7.7) 06/17/22 10:24 Lymph # (Auto) 1.3 10^3/uL (0.8-4.8) 06/17/22 10:24 [place] # (Auto) 0.4 10^3/uL (0.2-0.9) 06/17/22 10:24 Eos # (Auto) 0.5 10^3/uL (0.0-0.8) 06/17/22 10:24 Baso # (Auto) 0.1 10^3/uL (0.0-0.1) 06/17/22 10:24 Nucleated RBC % (auto) 0 % 06/17/22 10:24 Nucleated RBCs # 0.0 /100WBC 06/17/22 10:24 PT 13.00 SECONDS (12.1-14.9) 06/17/22 10:24 INR 0.95 (0.8-1.2) 06/17/22 10:24 APTT 29.6 SECONDS (23.9-36.7) 06/17/22 10:24 Sodium 146 mmol/L (136-145) H 06/17/22 10:24 Potassium 3.8 mmol/L (3.5-5.1) 06/17/22 10:24 Chloride 107 mmol/L (98-107) 06/17/22 10:24 Carbon Dioxide 28 mmol/L (22-29) 06/17/22 10:24 Anion Gap 14.8 (5-19) 06/17/22 10:24 BUN 24 mg/dL (8-23) H 06/17/22 10:24 Creatinine 0.8 mg/dL (0.7-1.2) 06/17/22 10:24 GFR Calculation 96.4 mL/min (90-130) 06/17/22 10:24 Glucose 93 mg/dL (65-115) 06/17/22 10:24 Calculated Osmolality 306 mOsm/kg (285-295) H 06/17/22 10:24 Calcium 9.4 mg/dL (8.5-10.5) 06/17/22 10:24 Total Bilirubin 0.5 mg/dL (0.15-1.2) 06/17/22 10:24 AST 24 U/L (0-40) 06/17/22 10:24 ALT 25 U/L (0-41) 06/17/22 10:24 Alkaline Phosphatase 96 U/L (40-130) 06/17/22 10:24 Troponin T Baseline 29 ng/L (0-15) H 06/17/22 10:24 Troponin T 120 Minute 25.16 ng/L (0-15) H 06/17/22 12:13 Delta Troponin T -3.84 ABS# (0-10) L 06/17/22 12:13 Total Protein 6.1 g/dL (6.6-8.7) L 06/17/22 10:24 Albumin 4.2 g/dL (3.5-5.2) 06/17/22 10:24 Globulin 1.9 g/dL (1.3-4.6) 06/17/22 10:24 Discharge Plan Discharge Patient Disposition: Placed in Observation Admit Provider: Ken Albrecht Clinical Impression: Tachy-bashir syndrome, Atrial fibrillation with RVR Condition: Stable Coding Level of Care Code 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
[2022-06-17 10:36] LABS: Basophils # 0.1 10^3/uL (0.0-0.1); Eosinophils # 0.5 10^3/uL (0.0-0.8); Eosinophils % 9.3 %; Hematocrit 43.3 % (42.0-52.0); Hemoglobin 14.2 g/dL (11.7-16.6); Lymphocytes # 1.3 10^3/uL (0.8-4.8); Lymphocytes % 26.4 %; Mean Corpuscular HGB Conc 32.8 g/dL (30.0-36.0); Mean Corpuscular Hemoglobin 29.3 pg (28.0-34.0); Mean Corpuscular Volume 89.5 fl (80-94); Mean Platelet Volume 10.4 fL (7.4-10.4); Monocytes # 0.4 10^3/uL (0.2-0.9); Monocytes % 8.9 %; Neutrophils % 54.2 %; Nucleated Red Blood Cells % 0 %; Platelet Count 228 10^3/cmm (130-400); Red Blood Count 4.84 10^6/uL (4.1-5.3); Red Cell Distribution Width 12.7 % (12.1-15.1)
[2022-06-17] MEDS: aspirin 81 mg Chew Tablet 324 MG PO (10:40)
[2022-06-17 10:46] LABS: INR 0.95 (0.8-1.2)
[2022-06-17 10:47] LABS: Partial Thromboplastin Time 29.6 SECONDS (23.9-36.7)
[2022-06-17 10:54] LABS: Alanine Aminotransferase 25 U/L (0-41); Albumin Level 4.2 g/dL (3.5-5.2); Alkaline Phosphatase 96 U/L (40-130); Anion Gap 14.8 (5-19); Aspartate Amino Transferase 24 U/L (0-40); Blood Urea Nitrogen 24 mg/dL (8-23); Calcium 9.4 mg/dL (8.5-10.5); Carbon Dioxide 28 mmol/L (22-29); Chloride 107 mmol/L (98-107); Creatinine Clr Calc Pharmacy 99.2004; Globulin 1.9 g/dL (1.3-4.6); Glomerular Filtration Rate 96.4 mL/min (90-130); Glucose 93 mg/dL (65-115); Osmolality Calculated 306 mOsm/kg (285-295); Potassium 3.8 mmol/L (3.5-5.1); Sodium 146 mmol/L (136-145); Total Bilirubin 0.5 mg/dL (0.15-1.2); Total Protein 6.1 g/dL (6.6-8.7)
[2022-06-17 10:56] LABS: Troponin(5th) Baseline 29 ng/L (0-15)
--- NOTE | 2022-06-17 11:50 | XR_ITS ---
WS: [id number] XR chest 1V portable [id number] REASON FOR EXAM: chest pain FINDINGS: Mild tortuosity and ectasia of thoracic aorta. Heart size at the upper limits of normal. Calcified granulomatous disease in both hemithoraces. No active pulmonary parenchymal or pleural disease noted. Significant degenerative spondylosis in the mid and lower thoracic spine. Significant osteoarthritis in both shoulder joints XR/XR chest 1V portable [id number] IMPRESSION: No acute chest abnormality.
--- NOTE | 2022-06-17 12:09 | ECG_ITS ---
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 Measurements Intervals [place] Rate: 41 P: 87 NE: 137 QRS: 11 QRSD: 91 T: 85 QT: 459 QTc: 379 Interpretive Statements SINUS BRADYCARDIA NONSPECIFIC T-WAVE ABNORMALITY Compared to ECG 06/17/2022 10:11:42 T-wave abnormality now present Electronically Signed On 06-17-2022 21:39:57 CDT by Faith Chen M.D. [email or web address]
[2022-06-17 12:49] LABS: Troponin 5 2HR 25.16 ng/L (0-15)
[2022-06-17 12:57] LABS: Troponin 5 2HR Delta -3.84 ABS# (0-10)
--- NOTE | 2022-06-17 13:52 | PC.NURSE ---
Arrived via wheelchair from ED. Oriented to room and surroundings. Nurse will continue to monitor.
--- NOTE | 2022-06-17 14:04 | PC.NURSE ---
received into room 111-1 via w/c.report received.sb on monitor (40's).denies chest pain.oriented to room environment.instructed to notify staff for any chest pain,sob,or for any concerns at all.pt verb understanding of instructions.
--- NOTE | 2022-06-17 16:11 | ECG_ITS ---
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 Measurements Intervals [place] Rate: 48 P: 54 MI: 130 QRS: 5 QRSD: 98 T: 62 QT: 468 QTc: 419 Interpretive Statements SINUS BRADYCARDIA WITH SINUS ARRHYTHMIA NONSPECIFIC T-WAVE ABNORMALITY Compared to ECG 06/17/2022 12:41:24 No significant changes Electronically Signed On 06-17-2022 21:41:10 CDT by Faith Chen M.D. [email or web address]
[2022-06-17 16:19] LABS: Troponin 5 6HR 25.72 ng/L (0-15)
[2022-06-17 16:20] LABS: Troponin 5 6HR Delta -3.28 ng/L (0-12)
--- NOTE | 2022-06-17 19:29 | PM.HP ---
Providers/Chief Complaint Admitting Physician: Andrei Hicks DO Primary Care Provider: Socorro Walsh MD Chief Complaint: Blood Pressure high, Chest Discomfort, High HR History of Present Illness Fortunato Deleon is a 67 year old male with remote history of atrial fibrillation not on anticoagulation, presented to the ER with complaints of mild chest pressure and palpitations. Patient reports earlier this morning he began to have a strange feeling in his chest, and noted that his heart rate was elevated into the 120s and 30s. He takes a beta francis and says that his HR is normally in the 50-60 range. Also recorded pressures that were a little less than normal. [place] it was a very similar sensation to his last bout of A-fib which occurred in per his recollection. He was previously treated with cardioversion and stabilization of his rhythm. He was not required to be on anticoagulation, but was recommended to be on beta-francis which he still takes. In the ER his rate was again in the 50s and 60s. His pressures were stable, and he denied having any chest pain or pressure. Chest x-ray demonstrated no acute concerns, did note old granulomatous disease and mild cardiomegaly. EKG showed sinus bradycardia. Review of Systems General: Reports: 10 or more systems reviewed and unremarkable except in HPI and below Const: Denies: fever(s) or chills Eyes: Denies: change in vision or blurry vision Card: Reports: palpitations; Denies: chest pain Resp: Reports: dyspnea; Denies: productive cough GI: Denies: abdominal pain, nausea or vomiting : Denies: flank pain Skin/Breast: Denies: rash Neuro: Denies: headache(s), numbness in extremities or weakness in extremities Endo: Denies: polyuria or polydipsia All/Imm: Denies: acute wheezing Medications/Allergies Home Medications Medication Instructions Recorded Confirmed Last Taken Type acetaminophen 325 mg tablet 325 mg PO QID PRN Pain 03/19/19 06/17/22 01/22/22 History glucosamine HCl 500 mg tablet 500 mg PO BID@0600,199903/19/19 06/17/22 06/17/22 History omega 4-mlk-lep-fish oil 1,000 mg 1 cap PO DAILY@0600 03/19/19 06/17/22 06/17/22 History (120 mg-180 mg) capsule (Fish Oil) fluticasone propionate 50 1 spray intranasal DAILY PRN 03/10/20 06/17/22 06/17/22 History mcg/actuation nasal Allergy Symptoms spray,suspension sildenafil 100 mg tablet 100 mg PO DAILY PRN sexual 06/10/20 06/17/22 1 Day Ago Rx activity #20 tabs ~10/04/20 cholecalciferol (vitamin D3) 50 50 mcg PO DAILY #90 caps 06/17/20 06/17/22 06/17/22 Rx mcg (2,000 unit) capsule albuterol sulfate 90 mcg/actuation 2 puff inhalation QID PRN 02/03/21 06/17/22 12/15/21 Rx aerosol inhaler (ProAir HFA) shortness of breath or wheezing #8.5 grams loratadine 10 mg tablet (Allergy 10 mg PO DAILY 08/23/21 06/17/22 06/17/22 History Relief (loratadine)) hydrocodone 5 mg-acetaminophen 325 1 tab PO Q4H #20 tabs 01/27/22 06/17/22 06/17/22 Rx mg tablet gabapentin 300 mg capsule 300 mg PO TID #90 caps 02/16/22 06/17/22 06/17/22 Rx potassium citrate 10 mEq (1,080 See Rx Instructions .Route 03/13/22 06/17/22 06/17/22 Rx mg) tablet,extended release .COMPLEX #540 tabs lisinopril 20 mg tablet 20 mg PO BID@0600,2000 #180 tabs 05/12/22 06/17/22 06/17/22 Rx folic acid 1 mg tablet 1 mg PO DAILY #30 tabs 05/24/22 06/17/22 06/17/22 Rx methotrexate sodium 2.5 mg tablet See Rx Instructions PO .Q7days #30 05/24/22 06/17/22 06/15/22 Rx tabs meloxicam 15 mg tablet See Rx Instructions .Route 06/01/22 06/17/22 06/17/22 Rx .COMPLEX #30 tabs metoprolol succinate 50 mg See Rx Instructions .Route 06/10/22 06/17/22 06/17/22 Rx tablet,extended release 24 hr .COMPLEX #90 tabs amlodipine 2.5 mg tablet 2.5 mg PO QAM 04/10/0206/17/22 06/17/22 History aspirin 81 mg tablet,delayed 81 mg PO DAILY 06/17/22 06/17/22 06/17/22 History release atorvastatin 10 mg tablet 10 mg PO QPM 06/17/22 06/17/22 06/16/22 History hydralazine 25 mg tablet 25 mg PO BID 06/17/22 06/17/22 06/17/22 History hydrochlorothiazide 50 mg tablet 50 mg PO QAM 06/17/22 06/17/22 06/17/22 History magnesium 200 mg tablet 200 mg PO DAILY 06/17/22 06/17/22 06/17/22 History maswmivulkbr-oew-ybczo acid-vit 1 tab PO DAILY 06/17/22 06/17/22 06/17/22 History K-lycop 400 mcg-20 mcg-370 mcg tablet (Men's 50 Plus Multivitamin) pantoprazole 40 mg tablet,delayed 40 mg PO DAILY 06/17/22 06/17/22 06/17/22 History release vitamin B complex 1 tab PO DAILY 06/17/22 06/17/22 06/17/22 History Allergies Allergy/AdvReac Type Severity Reaction Status Date / Time celecoxib [From Celebrex] AdvReac COULDNT Verified 06/17/22 10:47 WALK PFSH Acute PFSH: Medical History Cervical radiculopathy Cervical radiculopathy due to osteoarthritis of spine Hammer toes of both feet High risk medication use History of bladder stone CYSTOLITHOLAPAXY Hx of renal calculi Hypertension Immunization counseling Inflammatory arthritis Prostate cancer 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 Reducible left inguinal hernia Seronegative rheumatoid arthritis of both hands Urolithiasis Surgical History H/O prostate biopsy fusion biopsy H/O prostatectomy History of colon resection History of removal of calculus of renal pelvis through percutaneous nephrostomy Hx of arthroscopy of right knee S/P left inguinal hernia repair open 03/20/2019 Family History Mother , at age 74 Cancer Colon Father , at age 86 Cancer KIDNEY CANCER Other Rheumatoid arthritis Denies family history of Diabetes CAD (coronary artery disease) Chronic kidney disease (CKD) Lung disease Hypertension Stroke Social History Smoking and tobacco status: former smoker Quit status (tobacco): has quit using tobacco Year quit tobacco: 35 yrs ago Alcohol intake: never Adopted: No Caregiver/support person: No Lives independently: No Household members: spouse Marital status: Current occupational status: employed Vitals/I&O/Wt Last Vital Signs Temp 97.6 F 06/17/22 16:22 Pulse 52 L 06/17/22 18:35 Resp 17 06/17/22 18:35 BP 113/73 06/17/22 18:35 Pulse Ox 95 06/17/22 18:35 O2 Del Method 06/17/22 16:22 06/17/22 06/17/22 06/17/22 06:59 14:59 22:59 Intake Total 240 / 240 Balance 240 / 240 Weight last 48 hrs Weight 190 lb Physical Exam Narrative: General: Cooperative patient in no apparent distress. Well developed. HEENT: Normocephalic, Atraumatic. PERRLA, EOMI. Nasal passages patent without drainage. MMM. Heart: RRR. Resp: LCTA. No respiratory distress, no use of accessory muscles. Abd: Soft, non-tender. Non-distended. Bowel sounds present normal. Extremities: No edema. Pulses present. Skin: No rash or lesions on exposed areas. Neuro: CN II-XII intact. No focal motor or sensory deficits. Data 06/17/22 10:24 06/17/22 10:24 A&P Assessment and plan (1) Tachy-bashir syndrome: (2) Hypertension: Qualifiers: Hypertension type: essential hypertension Qualified Code(s): I10 - Essential (primary) hypertension (3) Hyperlipidemia: Qualifiers: Hyperlipidemia type: unspecified Qualified Code(s): E78.5 - Hyperlipidemia, unspecified Plan Mr. Deleon is a 67-year-old male admitted for irregular heart rhythm with palpitations. Admit to CSU for observation. DDx: Afib vs Sick Sinus vs tachy-bashir Labs unremarkable. Chest x-ray showed no acute. EKG shows sinus bradycardia. Continue telemetry. Will repeat EKG this afternoon. A.m. labs. Will include a TSH and a free T4. He did have a recent echo performed at [place]. We can try to obtain these records for review. In addition he has an upcoming stress test scheduled for next week. He will most likely go home tomorrow. 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 Continue other home meds at this time for his chronic illnesses. Code Status: Full IVF: None DVT PPx: SCD's GI PPx: None ABx: None Diet: Cardiac Discharge plan: Home Attestations Medical Necessity Statement*: Patient admitted for cardiac monitoring, recheck on his labs and symptoms. Coding Level of Care Code Acute Code for Chg Fwd Moderate MDM includes number and complexity of problems actively addressed during encounter, amount and/or complexity of data reviewed/ordered and described risk of complication, morbidity or mortality of management as documented Diagnoses Tachy-bashir syndrome I49.5 Hypertension I10 Hypertension type: essential hypertension Hyperlipidemia E78.5 Hyperlipidemia type: unspecified
[2022-06-17] MEDS: gabapentin 300 mg Capsule PO (20:36)
[2022-06-17] MEDS: lisinopril 20 mg Tablet PO (20:36)
[2022-06-17] MEDS: potassium chloride ER 10 mEq Tablet 20 MEQ PO (20:36)
[2022-06-18] VITALS: BP 151/92; PULSE 60; RESP 18; TEMP 36.6; O2SAT 98
[2022-06-18 03:00] LABS: Basophils % 0.7 %; Eosinophils # 0.5 10^3/uL (0.0-0.8); Eosinophils % 7.8 %; Hematocrit 38.6 % (42.0-52.0); Hemoglobin 12.8 g/dL (11.7-16.6); Lymphocytes # 1.6 10^3/uL (0.8-4.8); Lymphocytes % 26.3 %; Mean Corpuscular HGB Conc 33.2 g/dL (30.0-36.0); Mean Corpuscular Volume 90.4 fl (80-94); Mean Platelet Volume 10.5 fL (7.4-10.4); Monocytes # 0.4 10^3/uL (0.2-0.9); Monocytes % 6.8 %; Neutrophils # 3.48 10^3/uL (1.8-7.7); Neutrophils % 58.1 %; Nucleated Red Blood Cells % 0 %; Platelet Count 208 10^3/cmm (130-400); Red Blood Count 4.27 10^6/uL (4.1-5.3); Red Cell Distribution Width 12.9 % (12.1-15.1)
[2022-06-18 03:27] LABS: Anion Gap 13.5 (5-19); Blood Urea Nitrogen 26 mg/dL (8-23); Calcium 8.9 mg/dL (8.5-10.5); Carbon Dioxide 26 mmol/L (22-29); Chloride 104 mmol/L (98-107); Glomerular Filtration Rate 84.2 mL/min (90-130); Glucose 99 mg/dL (65-115); Magnesium 1.8 mg/dL (1.7-2.3); Osmolality Calculated 295 mOsm/kg (285-295); Potassium 3.5 mmol/L (3.5-5.1); Sodium 140 mmol/L (136-145); Thyroid Stimulating Hormone 4.24 uIU/mL (0.27-4.20)
[2022-06-18 04:00] VITALS: BP 144/83; PULSE 60; RESP 18; TEMP 36.5; O2SAT 98
[2022-06-18 05:09] VITALS: PULSE 46
[2022-06-18] MEDS: lisinopril 20 mg Tablet PO (05:30)
[2022-06-18] MEDS: metoprolol succinate ER (24 HR) 50 mg Tablet 25 MG PO (05:30)
[2022-06-18] MEDS: hydroCHLOROthiazide 25 mg Tablet 50 MG PO (05:30)
[2022-06-18] MEDS: amlodipine 5 mg Tablet 2.5 MG PO (05:30)
[2022-06-18 08:00] VITALS: BP 153/89; PULSE 56; RESP 18; TEMP 36.6; O2SAT 97
[2022-06-18] MEDS: folic acid 1 mg Tablet PO (08:11)
[2022-06-18] MEDS: pantoprazole DR 40 mg Tablet PO (08:11)
[2022-06-18] MEDS: gabapentin 300 mg Capsule PO (08:11)
[2022-06-18] MEDS: potassium chloride ER 10 mEq Tablet 20 MEQ PO (08:11)
[2022-06-18] MEDS: aspirin 81 mg EC Tablet PO (08:12)
[2022-06-18] MEDS: hyDRALAzine 25 mg Tablet PO (08:12)
[2022-06-18] MEDS: magnesium oxide 400 mg tablet 200 MG PO (08:12)
[2022-06-18 10:23] VITALS: BP 153/89; PULSE 56; RESP 18; TEMP 36.6; O2SAT 97
--- NOTE | 2022-06-18 19:31 | PM.DCS ---
Discharge Providers Date of Admission: 06/17/22 13:33 Date of Discharge: June 18, 2022 Attending Provider at Admission: Andrei Hicks DO Attending Provider at Discharge: Andrei Hicks DO Primary Care Provider: Socorro Walsh MD Diagnoses at Discharge Discharge Diagnosis (1) Tachy-bashir syndrome: Status: Acute (2) Hypertension: Status: Acute Qualifiers: Hypertension type: essential hypertension Qualified Code(s): I10 - Essential (primary) hypertension (3) Hyperlipidemia: Status: Acute Qualifiers: Hyperlipidemia type: unspecified Qualified Code(s): E78.5 - Hyperlipidemia, unspecified Reason for Visit Reason for Visit: Blood Pressure high, Chest Discomfort, High HR Hospital Course Hospital Course Mr. Deleon presented to the ER after having a bout of rapid heart rate. When he entered the ER he was noted to be in sinus bradycardia, with his rate in the 40s to 50s. He says that his rate normally runs in the 50s to 60s. He is on metoprolol. He endorsed a very distant history of paroxysmal atrial fibrillation. He was cardioverted at that time and did not require anticoagulation. He has had no further episodes since this episode, which did occur in the . He was placed on the cardiac floor with telemetry and monitoring for the next 24 hours. During that time his heart rate remained in the 50s range throughout the night. His pressures remained stable. There were no further episodes of tachycardia, and patient was without chest pain. His labs returned normal. Chest x-ray was unremarkable. TSH was only very minimally elevated. His troponins remain negative and his repeat EKGs also demonstrated sinus bradycardia. Discussed with patient that this may have been an isolated episode. He did endorse that he had a recent echocardiogram with his squirt machine operator in [place] and was unremarkable. He does have a scheduled stress test later this week. Patient requested to go home today and I felt that this was reasonable given that his monitoring period was benign. Recommended that he follow-up with his squirt machine operator [facility], and keep his appointment for a stress test. He was discharged in stable and improved condition. Physical Exam Narrative: General: Cooperative patient in no apparent distress. Well developed. HEENT: Normocephalic, Atraumatic. External ears normal. Nasal passages patent without drainage. MMM. Heart: Regular rhythm, bradycardic. Resp: LCTA. No respiratory distress, no use of accessory muscles. Abd: Soft, non-tender. Non-distended. Extremities: No edema. Skin: No rash or lesions on exposed areas. Discharge Data Studies Completed and Pending Completed Studies During Hospitalization Category Date Time Status XR chest 1V portable [id number] Stat Exams 06/17/22 11:50 Completed Radiology Impressions Chest X-Ray 06/17/22 11:50 IMPRESSION: No acute chest abnormality. Laboratory Results WBC 6.0 10^3/uL (4.0-10.0) 06/18/22 02:37 RBC 4.27 10^6/uL (4.1-5.3) 06/18/22 02:37 Hgb 12.8 g/dL (11.7-16.6) 06/18/22 02:37 Hct 38.6 % (42.0-52.0) L 06/18/22 02:37 MCV 90.4 fl (80-94) 06/18/22 02:37 MCH 30.0 pg (28.0-34.0) 06/18/22 02:37 MCHC 33.2 g/dL (30.0-36.0) 06/18/22 02:37 RDW 12.9 % (12.1-15.1) 06/18/22 02:37 Plt Count 208 10^3/cmm (130-400) 06/18/22 02:37 MPV 10.5 fL (7.4-10.4) H 06/18/22 02:37 Neut % (Auto) 58.1 % 06/18/22 02:37 Lymph % (Auto) 26.3 % 06/18/22 02:37 Meigs % (Auto) 6.8 % 06/18/22 02:37 Eos % (Auto) 7.8 % 06/18/22 02:37 Baso % (Auto) 0.7 % 06/18/22 02:37 Neut # (Auto) 3.48 10^3/uL (1.8-7.7) 06/18/22 02:37 Lymph # (Auto) 1.6 10^3/uL (0.8-4.8) 06/18/22 02:37 Meigs # (Auto) 0.4 10^3/uL (0.2-0.9) 06/18/22 02:37 Eos # (Auto) 0.5 10^3/uL (0.0-0.8) 06/18/22 02:37 Baso # (Auto) 0.0 10^3/uL (0.0-0.1) 06/18/22 02:37 Nucleated RBC % (auto) 0 % 06/18/22 02:37 Nucleated RBCs # 0.0 /100WBC 06/18/22 02:37 PT 13.00 SECONDS (12.1-14.9) 06/17/22 10:24 INR 0.95 (0.8-1.2) 06/17/22 10:24 APTT 29.6 SECONDS (23.9-36.7) 06/17/22 10:24 Sodium 140 mmol/L (136-145) 06/18/22 02:37 Potassium 3.5 mmol/L (3.5-5.1) 06/18/22 02:37 Chloride 104 mmol/L (98-107) 06/18/22 02:37 Carbon Dioxide 26 mmol/L (22-29) 06/18/22 02:37 Anion Gap 13.5 (5-19) 06/18/22 02:37 BUN 26 mg/dL (8-23) H 06/18/22 02:37 Creatinine 0.9 mg/dL (0.7-1.2) 06/18/22 02:37 GFR Calculation 84.2 mL/min (90-130) L 06/18/22 02:37 Glucose 99 mg/dL (65-115) 06/18/22 02:37 Calculated Osmolality 295 mOsm/kg (285-295) 06/18/22 02:37 Calcium 8.9 mg/dL (8.5-10.5) 06/18/22 02:37 Magnesium 1.8 mg/dL (1.7-2.3) 06/18/22 02:37 Total Bilirubin 0.5 mg/dL (0.15-1.2) 06/17/22 10:24 AST 24 U/L (0-40) 06/17/22 10:24 ALT 25 U/L (0-41) 06/17/22 10:24 Alkaline Phosphatase 96 U/L (40-130) 06/17/22 10:24 Troponin T Baseline 29 ng/L (0-15) H 06/17/22 10:24 Troponin T 120 Minute 25.16 ng/L (0-15) H 06/17/22 12:13 Delta Troponin T -3.84 ABS# (0-10) L 06/17/22 12:13 Troponin T Hi Sens 6Hr 25.72 ng/L (0-15) H 06/17/22 15:52 Troponin T Hi Sens 6Hr Delta -3.28 ng/L (0-12) L 06/17/22 15:52 Total Protein 6.1 g/dL (6.6-8.7) L 06/17/22 10:24 Albumin 4.2 g/dL (3.5-5.2) 06/17/22 10:24 Globulin 1.9 g/dL (1.3-4.6) 06/17/22 10:24 TSH 4.24 uIU/mL (0.27-4.20) H 06/18/22 02:37 Vitals Last Vital Signs Temp 97.8 F 06/18/22 10:23 Pulse 56 L 06/18/22 10:23 Resp 18 06/18/22 10:23 BP 153/89 06/18/22 10:23 Pulse Ox 97 06/18/22 10:23 O2 Del Method 06/18/22 08:00 Discharge Plan Discharge Patient Disposition: Home Condition: Stable Prescriptions: Continued loratadine [Allergy Relief (loratadine)] 10 mg tablet 10 mg PO DAILY albuterol sulfate [ProAir HFA] 90 mcg/actuation HFA aerosol inhaler 2 puff inhalation QID PRN (Reason: shortness of breath or wheezing) Qty: 8.5 6RF methotrexate sodium 2.5 mg tablet See Rx Instructions PO .Q7days Qty: 30 3RF Rx Instructions: take 6 tabs on same day/every monday/ once a week PO .Q7days; folic acid 1 mg tablet 1 mg PO DAILY Qty: 30 3RF sildenafil 100 mg tablet 100 mg PO DAILY PRN (Reason: sexual activity) Qty: 20 12RF Rx Instructions: 1 hour before intercourse on empty stomach. NO NITROGLYCERIN! cholecalciferol (vitamin D3) 50 mcg (2,000 unit) capsule 50 mcg PO DAILY Qty: 90 1RF gabapentin 300 mg capsule 300 mg PO TID Qty: 90 3RF Rx Instructions: take 1 tab at bedtime x3days, then 1 tab twice daily then stay in 1 tab 3 times daily potassium citrate 10 mEq (1,080 mg) tablet extended release See Rx Instructions .ROUTE .COMPLEX Qty: 540 0RF Dose Instruction: TAKE 2 TABLETS BY MOUTH THREE TIMES DAILY AT 6AM, NOON AND 8PM Rx Instructions: TAKE 2 TABLETS BY MOUTH THREE TIMES DAILY AT 6AM, NOON AND 8PM lisinopril 20 mg tablet 20 mg PO BID@0600,2000 Qty: 180 1RF meloxicam 15 mg tablet See Rx Instructions .ROUTE .COMPLEX Qty: 30 2RF Dose Instruction: TAKE 1 TABLET BY MOUTH ONCE DAILY AT 6AM Rx Instructions: TAKE 1 TABLET BY MOUTH ONCE DAILY AT 6AM metoprolol succinate 50 mg tablet extended release 24 hr See Rx Instructions .ROUTE .COMPLEX Qty: 90 0RF Dose Instruction: TAKE 1/2 (ONE-HALF) TABLET BY MOUTH ONCE DAILY AT 6AM Rx Instructions: TAKE 1/2 (ONE-HALF) TABLET BY MOUTH ONCE DAILY AT 6AM acetaminophen 325 mg Tablet 325 mg PO QID PRN (Reason: Pain) glucosamine HCl 500 mg Tablet 500 mg PO BID@0600,1999 omega 2-aqi-fnm-fish oil [Fish Oil] 1,000 mg (120 mg-180 mg) Capsule 1 cap PO DAILY@0600 fluticasone propionate 50 mcg/actuation spray,suspension 1 spray INTRANASAL DAILY PRN (Reason: Allergy Symptoms) hydrocodone-acetaminophen 5-325 mg tablet 1 tab PO Q4H Qty: 20 0RF aspirin 81 mg Tablet,Delayed Release (Dr/Ec) 81 mg PO DAILY vitamin B complex Tablet 1 tab PO DAILY magnesium 200 mg Tablet 200 mg PO DAILY Men's 50 Plus Multivitamin 400-20-370 mcg Tablet 1 tab PO DAILY atorvastatin 10 mg tablet 10 mg PO QPM hydrochlorothiazide 50 mg tablet 50 mg PO QAM hydralazine 25 mg tablet 25 mg PO BID amlodipine 2.5 mg tablet 2.5 mg PO QAM pantoprazole 40 mg tablet,delayed release (DR/EC) 40 mg PO DAILY Discharge Orders: Discharge Order (Routine); Ordered 06/18/22 Ordered By: Andrei Hicks Referrals: Socorro Walsh MD [Primary Care Provider] - (Please call LESIA Polo / Cristina on Monday to schedule an appointment to be seen by Dr. Walsh within the next 7-10 days.) Patient Instructions: Opioid Safety Discharge Attestations Time Spent in Discharge Care*: less than 30 min Specific Discharge Activities: educating patient, educating and/or supporting family/caregiver and documenting/other paperwork Status at Discharge: Overall status at discharge: patient is back to baseline Quality Metrics Clinical Quality Measures [ No reported AMI, CVA or VTE this stay] Coding Level of Care Code Acute Code for Chg Fwd Diagnoses Tachy-bashir syndrome I49.5 Hypertension I10 Hypertension type: essential hypertension Hyperlipidemia E78.5 Hyperlipidemia type: unspecified
== END 2022-06-18 11:00 | disposition home or self-care (01) ==
LOC: ER 10:19 → CSU 14:55
PROVIDERS: Admitting Provider Family Medicine; Emergency Provider Family Medicine; PCP Family Medicine; Visit Provider Family Medicine
DX: I49.5 Sick sinus syndrome (principal); I48.91 Unspecified atrial fibrillation; I10 Essential (primary) hypertension; E78.5 Hyperlipidemia, unspecified; Z79.82 Long term (current) use of aspirin; Z87.891 Personal history of nicotine dependence
CPT/HCPCS: 36415; 71045; 80048; 80053; 83735; 84443; 84484; 85025; 85610; 85730; 93005; 99285; G0378

== ENCOUNTER → 2022-08-18 11:34 | Outpatient (BNVA) | payer MEDICARE, OTHER, SELFPAY | PROVIDERS: PCP Nurse Practitioner Family; Visit Provider Nurse Practitioner Family | DX: I10 Essential (primary) hypertension (principal); C61 Malignant neoplasm of prostate; M47.22 Other spondylosis with radiculopathy, cervical region; E87.6 Hypokalemia; E78.5 Hyperlipidemia, unspecified; R79.89 Other specified abnormal findings of blood chemistry | CPT/HCPCS: 80053; 80061; 84153; 84443; 85025 ==

== ENCOUNTER 2022-08-22 07:54 | Outpatient (CLI) | payer MEDICARE, OTHER, SELFPAY ==
--- NOTE | 2022-08-22 08:02 | XR_ITS ---
WS: [id number] XR KUB [id number] REASON FOR EXAM: stones FINDINGS: No calculi are identified within the right kidney, right ureter, or urinary bladder. Compared to examination of 02/22/2022, there appear to be 2 possibly 3 calculi in the left ureteropel kirti junction/proximal left ureter at the L2-L3 level. Renal calculus overlying the lower pole of the left kidney on 02/22/2022 is now seen in the left lowe r pelvis, presumably the distal left ureter near the ureterovesical junction. No other significant interval change. XR/XR KUB [id number] IMPRESSION: Interval migration of intrarenal calculi into the left ureter as above.
== END 2022-08-22 07:55 | disposition home or self-care (01) ==
LOC: RAD 07:57
PROVIDERS: PCP Nurse Practitioner Family; Visit Provider Urology
DX: N20.2 Calculus of kidney with calculus of ureter (principal); C61 Malignant neoplasm of prostate; R97.20 Elevated prostate specific antigen [PSA]; Z80.0 Family history of malignant neoplasm of digestive organs
CPT/HCPCS: 74018; 81003; 99213

== ENCOUNTER 2022-08-29 08:30 | Outpatient (CLI) | payer MEDICARE, OTHER, SELFPAY ==
--- NOTE | 2022-08-29 08:39 | XR_ITS ---
WS: [id number] EXAMINATION: XR KUB [id number] REASON FOR EXAM: STONES COMPARISON: 08/22/2022 ORDER DATE: 08/29/2022 8:39 AM FINDINGS: No calculi are identified within the right kidney, right ureter, or urinary bladder. Total hip prosth esis on the right. Compared to examination of 02/22/2022, there appear to be 2 possibly 3 calculi in the left ureteropel kirti junction/proximal left ureter at the L2-L3 level which is not as well seen on the current study d ue to overlapping transverse colon bowel content.. Renal calculus overlying the lower pole of the left kidney on 02/22/2022 is now seen in the left lowe r pelvis, presumably the distal left ureter near the ureterovesical junction. No change since the recent previous study XR/XR KUB [id number] IMPRESSION: No change in the calculi within the left ureter as above.
== END 2022-08-29 08:31 | disposition home or self-care (01) ==
PROVIDERS: PCP Nurse Practitioner Family; Visit Provider Urology
DX: N20.2 Calculus of kidney with calculus of ureter (principal); C61 Malignant neoplasm of prostate
CPT/HCPCS: 74018; 81003; 99214

== ENCOUNTER 2022-09-01 11:06 | Day surgery (SDC) | payer MEDICARE, OTHER, SELFPAY ==
[2022-08-30 10:25] VITALS: BMI 27.0
--- NOTE | 2022-08-30 15:19 | P.ANESASSM_ITS ---
Pre-Anesthetic Assessment Height/Weight: Height 1.78 m Weight 85.729 kg Operation Date: 09/01/22 12:50 Proposed Procedures p CYSTOSCOPY , LEFT; RETROGRADE , URETEROSCOPY, LASER, STENT [id number] MODIFIER 26,N20.9(Not Applicable) - MD willem Chaney Retrograde Pyelogram(Left) - MD willem Chaney Ureteroscopy(Right) - MD willem Chaney Laser Lithotripsy(Right) - MD willem Chaney Ureteral Stent Placement(Right) - Robby Tinoco MD Familial anesthetic complications: none Was Beta Jessica taken within 24 hours: N/A Was Clonidine taken within 24 hours: N/A Social No alcohol and No tobacco Exam alert, oriented x 3, clear to auscultation bilaterally and regular rate & rhythm Airway Submandibular: within normal limits Cervical ROM: Other (Recent ACDF, in C-collar, limited ROM) Mallampati: Class II Dentition: full CV/HEM Arrythmia and Hypertension GI Gastroesophageal Reflux Disease Metabolic Hyperlipidemia [facility] [place] Osteoarthritis/DJD Inflammatory arthritis Anesthetic Plan ASA status: 3 Other: SAB vs GA/LMA Medications/Allergies Home Medications Medication Instructions Recorded Confirmed Last Taken Type acetaminophen 325 mg tablet 325 mg PO QID PRN Pain 03/19/19 08/30/22 08/30/22 Hi story omega 8-ygs-vus-fish oil 1,000 mg 1 cap PO DAILY@0600 03/19/19 08/30/22 08/30/22 History (120 mg-180 mg) capsule (Fish Oil) fluticasone propionate 50 1 spray intranasal DAILY PRN 03/10/20 08/30/22 06/17/22 History mcg/actuation nasal Allergy Symptoms spray,suspension sildenafil 100 mg tablet 100 mg PO DAILY PRN sexual 06/10/20 08/30/22 08/30/22 Rx activity #20 tabs cholecalciferol (vitamin D3) 50 50 mcg PO DAILY #90 caps 06/17/20 08/30/22 08/30/22 Rx mcg (2,000 unit) capsule albuterol sulfate 90 mcg/actuation 2 puff inhalation QID PRN 02/03/21 08/30/22 08/30/22 Rx aerosol inhaler (ProAir HFA) shortness of breath or wheezing #8.5 grams loratadine 10 mg tablet (Allergy 10 mg PO DAILY 08/23/21 08/30/22 08/30/22 History Relief (loratadine)) folic acid 1 mg tablet 1 mg PO DAILY #30 tabs 05/24/22 08/30/22 08/30/22 Rx aspirin 81 mg tablet,delayed 81 mg PO DAILY 06/17/22 08/30/22 08/30/22 History release hydralazine 25 mg tablet 25 mg PO BID 06/17/22 08/30/22 08/30/22 History magnesium 200 mg tablet 200 mg PO DAILY 06/17/22 08/30/22 08/30/22 History yxetkyuitira-wtg-oiydm acid-vit 1 tab PO DAILY 06/17/22 08/30/22 08/30/22 History K-lycop 400 mcg-20 mcg-370 mcg tablet (Men's 50 Plus Multivitamin) vitamin B complex 1 tab PO DAILY 06/17/22 08/30/22 08/30/22 History gabapentin 300 mg capsule 300 mg PO TID #90 caps 07/22/22 08/30/22 08/30/22 Rx amlodipine 2.5 mg tablet 2.5 mg PO QPM #90 tabs 08/30/22 Unknown Rx atorvastatin 10 mg tablet 10 mg PO QPM #90 tabs 08/30/22 Unknown Rx hydrochlorothiazide 50 mg tablet 50 mg PO QAM #90 tabs 08/30/22 Unknown Rx lisinopril 20 mg tablet 20 mg PO BID@0600,2000 #180 tabs 08/30/22 Unknown Rx meloxicam 15 mg tablet 15 mg PO DAILY 08/30/22 08/30/22 08/30/22 History methotrexate sodium 2.5 mg tablet 15 mg PO .Q7days 08/30/22 08/30/22 08/30/22 History metoprolol succinate 50 mg 25 mg PO DAILY 08/30/22 08/30/22 08/30/22 History tablet,extended release 24 hr pantoprazole 40 mg tablet,delayed 40 mg PO DAILY #90 tabs 08/30/22 Unknown Rx release potassium citrate 10 mEq (1,080 20 meq PO TID 08/30/22 08/30/22 08/30/22 History mg) tablet,extended release Allergies Allergy/AdvReac Type Severity Reaction Status Date / Time celecoxib [From Celebrex] AdvReac COULDNT Verified 08/30/22 10:13 WALK FOR[facility] Anesthesia Medical History Atrial fibrillation with RVR Cervical radiculopathy Cervical radiculopathy due to osteoarthritis of spine Hammer toes of both feet High risk medication use History of bladder stone CYSTOLITHOLAPAXY Hx of renal calculi Hypertension Immunization counseling Inflammatory arthritis Prostate cancer 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 Reducible left inguinal hernia Seronegative rheumatoid arthritis of both hands Urolithiasis Surgical History H/O prostate biopsy fusion biopsy H/O prostatectomy History of colon resection History of fusion of cervical spine [facility] August 2021 Dr. San History of removal of calculus of renal pelvis through percutaneous nephrostomy Hx of arthroscopy of right knee S/P left inguinal hernia repair open 03/20/2019 Family History Mother , at age 74 Cancer Colon Father , at age 86 Cancer KIDNEY CANCER Other Rheumatoid arthritis Denies family history of Diabetes CAD (coronary artery disease) Chronic kidney disease (CKD) Lung disease Hypertension Stroke Social History Smoking and tobacco status: former smoker Quit status (tobacco): has quit using tobacco Year quit tobacco: 35 yrs ago Alcohol intake: never Substance/Drug Use: never Adopted: No Caregiver/support person: No Lives independently: No Household members: spouse Marital status: Current occupational status: employed Data Anesthesia Cardiac Studies: No Data to Display
[2022-09-01] VITALS (9 sets, daily range): BP systolic 101–179; BP diastolic 75–111; PULSE 43–57; RESP 16–20; TEMP 36.1–36.7; O2SAT 96–98
--- NOTE | 2022-09-01 11:09 | XR_ITS ---
WS: [id number] EXAMINATION: XR KUB [id number] REASON FOR EXAM: Preop left ureteroscopy COMPARISON: 08/29/2022 ORDER DATE: 09/01/2022 11:20 AM FINDINGS: No calculi are identified. Total hip prosthesis on the right. Renal calculus overlying the lower pole of the left kidney on 02/22/2022 is now seen in the left lower pelvis, presumably the distal left ureter at or near the ureterovesical junction or within a bl adder diverticulum.. No change since the recent previous study XR/XR KUB [id number] IMPRESSION: No change in the calculus located in the left lower pelvic cavity.
--- NOTE | 2022-09-01 11:09 | SC_ITS ---
WS: [id number] EXAMINATION: C-[facility] for U[facility] REASON FOR EXAM: Left ureteroscopy COMPARISON: Recent plain films ORDER DATE: 09/01/2022 11:09 AM FINDINGS: Partial contrast opacification of the urinary bladder and distal left ureter seen on some views views demonstrating catheter placement into the upper collecting system with opacification demonstrating m ild caliectasis. The previous stone in the left cavity is not clearly define however may be superimpo sed by bowel gas or possibly removed. SC/C-arm [facility] for Urology IMPRESSION: Total fluoroscopy time 61.5 seconds
[2022-09-01] MEDS: sodium chloride 0.9% 1,000 ML 30 ML IV (11:44)
--- NOTE | 2022-09-01 11:45 | W.PM.OPSUD ---
Surgery/Procedure H&P Update DATE OF PROCEDURE: September 01, 2022 DATE H&P PERFORMED: 08/29/22 H&P UPDATE INFORMATION: I have reviewed H&P completed within last 30 days, I have examined patient prior to procedure, No changes to prior documentation and H&P is in [facility] [place] on date indicated CHANGES TO PREVIOUS DOCUMENTATION: KUB today shows that the stone has not changed in its position in the left distal ureter. PREOP DIAGNOSIS: Left distal ureteral stone PLANNED PROCEDURE: Operation Date: 09/01/22 12:30 Proposed Procedures p CYSTOSCOPY , LEFT; RETROGRADE , URETEROSCOPY, LASER, STENT [id number] MODIFIER 26,N20.9(Not Applicable) - Robby Tinoco MD s Retrograde Pyelogram(Left) - MD willem Chaney Ureteroscopy(Right) - MD willem Chaney Laser Lithotripsy(Right) - MD willem Chaney Ureteral Stent Placement(Right) - Robby Tinoco MD
--- NOTE | 2022-09-01 13:15 | P.OP_ITS ---
Operative Report Date of procedure: September 01, 2022 Pre-op diagnosis: Left distal ureteral stone Post-op diagnosis: Left distal ureteral stone Procedure done: 1. Cystoscopy, LEFT: Retrograde, ureteroscopy, laser, stent Implants: Left ureteral stent Specimens removed/disposition: Stone fragments Pathology: Stone fragments Surgeon: Alejandrina Estimated blood loss: Minimal Urine output: Not measured Complications: None Findings: Anesthesia: General Condition: Stable Disposition: PACU Intraoperative findings: * Stone was partially impacted in the ureter. Had obviously been there for quite some time. * Completely fragmented. Fragments were basketed and flushed from the ureter. Mostly sand sized. * 7 Sudanese by 30 cm double-pigtail stent left indwelling at the completion of the procedure. Brief History: Tanner is a very pleasant 67-year-old white male with a complex history of recurrent urolithiasis over many years. He has had a known left lower pole stone that has been monitored for a while with no change. Recently routine surveillance KUB revealed that the stone had migrated down into the left distal ureter. He had had some mild symptoms but nothing severe. Serial KUBs showed no evidence of progression and ultimately we decided to treat the stone. Alt ernatives were thoroughly discussed. We also discussed the possibility of impaction of the stone not knowing how long it had been there. That brought up the possibility of a staged procedure with stent placement followed by delay for passive dilation followed by endoscopy or ESWL versus if inability to pass a stent or wire past the stone then antegrade attempt with stent placement and delayed treatment. He expressed good understanding as well as did his . Procedure: Routine preoperative evaluation examination and obtaining of informed consent he was taken to the operating suite on 09/01/2022 where spinal anesthesia was administered without difficulty after appropriate timeout was performed, SCDs confirmed to be functioning, preoperative antibiotics administered, beta-francis protocol confirmed. Prepped and draped in usual sterile fashion in dorsolithotomy position pain careful attention to avoiding pressure points. 21 Sudanese cystoscope with 30 degree lens was introduced into urethra meatus and advanced into bladder under videoscopy. The bladder was systematically examined and found to be within normal limits. An 8 Sudanese cone-tip catheter was intubated to the left ureteral orifice for left retrograde ureteropyelogram which demonstrated: Distal ureter was normal until the filling defect consistent with a stone was encountered. Contrast flowed easily passed the stone into the proximal ureter and renal pelvis. No other proximal filling defects were identified. Flexible Tip guidewire was passed up the left ureter bypassing the stone curling in the area of the renal pelvis. A second guidewire was passed and the ureter distal to the stone was dilated with a 15 Sudanese 4 cm balloon. There was no waste. 7 Sudanese offset semirigid ureteroscope was then advanced over the working wire to the stone which was easily identified and accessible. He did have at least a very distal amount of inflammation with some narrowing of the ureter just below the stone signifying that have been there for quite some time. A 365 ?m thulium superpulse laser fiber was utilized to fragment the stone into small sand like the fragments that were flushed from the ureter and/or basketed and then removed. No difficulty with that process. Scope was then passed proximal to the area of stone location and impaction. Few small fragments had migrated proximally but these were easily basketed and removed. More contrast was injected and no filling defects were identified proximal to that point. The stone was passed to just above the pelvic vessels and no additional stones were seen. The ureter itself did not appear to be significantly dilated. Cystoscope was then backloaded over the guidewire and a 7 Sudanese by 30 cm double-pigtail stent was advanced over the guidewire through the cystoscope into appropriate position as confirmed via fluoroscopy and cystoscopy. Bladder was cleared of the bulk of the fragments and the procedure was completed after confirming the stent was functioning well Tolerated the procedure well without complications. He was awakened in the operating room and returned to PACU in stable condition. PLANS: 1. Anticipate discharge from outpatient surgery after recovery from anesthesia 2. We will plan on taking the stent out sometime next week late
[2022-09-01] MEDS: levofloxacin-dextrose 5 % 500 MG/100 ML PREMIX 100 MG IV (13:22)
--- NOTE | 2022-09-01 13:25 | P.ANESUD_ITS ---
Pre-Anesthetic Update Pre-Anesthetic Assessment: Date of Surgery/Procedure: 09/01/22 Preop Leanne gnosis: Left distal ureteral stone Proposed Procedure: Operation Date: 09/01/22 12:30 Proposed Procedures p CYSTOSCOPY , LEFT; RETROGRADE , URETEROSCOPY, LASER, STENT [id number] MODIFIER 26,N20.9(Not Applicable) - MD willem Chaney Retrograde Pyelogram(Left) - MD willem Chaney Ureteroscopy(Right) - MD willem Chaney Laser Lithotripsy(Right) - MD willem Chaney Ureteral Stent Placement(Right) - Robby Tinoco MD Any changes to Pre-Anesthetic Assessment?: No Last Intake: Intake Last Liquid Date 09/01/22 Last Liquid Time 07:00 Last Solid Date 08/31/22 Last Solid Time 21:00 Vitals: Temperature 98.0 F 09/01/22 11:20 Temperature Source Temporal Artery S can 09/01/22 11:20 Pulse Rate 49 L 09/01/22 11:20 Respiratory Rate 17 09/01/22 11:20 Blood Pressure 150/87 09/01/22 11:20 Blood Pressure Willa n 108 09/01/22 11:20 Pulse Oximetry 98 09/01/22 11:20 Oxygen Delivery Me thod Room Air 09/01/22 11:31 Exam: Pre-Anes Outpt Exam: alert, oriented x 3, clear to auscultation bilaterally and regular rate & rhythm Cardiac Studies: No Data to Display
[2022-09-01] MEDS: iohexol 300 mg/mL 50 mL Btl (OR ONLY) XX (13:54)
--- NOTE | 2022-09-01 16:26 | ANE.PACU2 ---
Inpatient post-anesthesia follow up: Airway intact: Yes Vital signs: Temperature 97.8 F Pulse Rate 45 Respiratory Rate 17 Blood Pressure 143/81 Pulse Oximetry 96 Oxygen Delivery Me thod Room Air Oxygen Flow Rate Fraction of Inspir ed Oxygen Hydration adequate: Yes Nausea and vomiting: No Pain level: 1 Mental status: Baseline
--- NOTE | 2022-09-01 16:27 | PC.NURSE ---
Pt reports sensation in all four extremities and demonstrated ROM of all four extremities.
[2022-09-09 22:24] LABS: Stone Source LEFT URETERAL STONE
== END 2022-09-01 17:17 | disposition home or self-care (01) ==
PROVIDERS: PCP Nurse Practitioner Family; Visit Provider Urology
PROC: 0TJB8ZZ Inspection of Bladder, Via Natural or Artificial Opening Endoscopic (ICD-10-PCS; CPT 52000; principal; 2022-09-01 12:30)
PROC: (CPT 74420; 2022-09-01 12:30)
PROC: 0TJ98ZZ Inspection of Ureter, Via Natural or Artificial Opening Endoscopic (ICD-10-PCS; CPT 52351; 2022-09-01 12:30)
PROC: (CPT 52332; 2022-09-01 12:30)
PROC: (CPT 50605; 2022-09-01 12:30)
DX: N20.1 Calculus of ureter (principal); I10 Essential (primary) hypertension; E78.5 Hyperlipidemia, unspecified; K21.9 Gastro-esophageal reflux disease without esophagitis; Z79.84 Long term (current) use of oral hypoglycemic drugs; Z87.891 Personal history of nicotine dependence; Z85.46 Personal history of malignant neoplasm of prostate; Z90.79 Acquired absence of other genital organ(s)
CPT/HCPCS: 52332; 74018; 76000; 82365; 88300; C2625; J1956; J2250; J2704; J3010; J3490; J7030

== ENCOUNTER → 2022-09-05 13:31 | Outpatient (BNVA) | payer MEDICARE, OTHER, SELFPAY | PROVIDERS: PCP Family Medicine; Visit Provider Internal Medicine Rheumatology | DX: Z79.899 Other long term (current) drug therapy (principal); M06.041 Rheumatoid arthritis without rheumatoid factor, right hand; M06.042 Rheumatoid arthritis without rheumatoid factor, left hand; M47.22 Other spondylosis with radiculopathy, cervical region; Z71.89 Other specified counseling; G56.03 Carpal tunnel syndrome, bilateral upper limbs | CPT/HCPCS: 99214 ==

== ENCOUNTER 2022-09-07 10:30 | Outpatient (CLI) | payer MEDICARE, OTHER, SELFPAY ==
--- NOTE | 2022-09-07 10:42 | XR_ITS ---
WS: [id number] Exam: XR KUB [id number] Date/Time of Exam: 09/07/2022 10:47 AM Reason For Exam: STONES No bowel obstruction or free air. A left-sided ureteral catheter is in place appearing to be in appro priate location. No sign of organ enlargement. Moderately advanced degenerative changes of the lumbar spine and mild dextroscoliosis. Partially visualized right total hip replacement. XR/XR KUB [id number] IMPRESSION: 1. No acute abdominal process. 2. Left-sided ureteral catheter in satisfactory position.
== END 2022-09-07 10:31 | disposition home or self-care (01) ==
PROVIDERS: PCP Family Medicine; Visit Provider Urology
DX: N20.2 Calculus of kidney with calculus of ureter (principal); N13.30 Unspecified hydronephrosis; Z96.0 Presence of urogenital implants
CPT/HCPCS: 74018; 81003

== ENCOUNTER 2022-12-01 12:52 | Outpatient (CLI) | payer MEDICARE, OTHER, SELFPAY ==
[2022-12-01 13:06] LABS: Basophils % 0.4 %; Eosinophils # 0.3 10^3/uL (0.0-0.8); Eosinophils % 4.7 %; Lymphocytes # 1.5 10^3/uL (0.8-4.8); Mean Corpuscular HGB Conc 33.2 g/dL (30-55); Mean Corpuscular Hemoglobin 31.1 pg (27-33); Mean Corpuscular Volume 93.4 fl (82-101); Mean Platelet Volume 9.9 fL (7.4-10.4); Monocytes # 0.5 10^3/uL (0.2-0.9); Monocytes % 7.1 %; Neutrophils # 4.77 10^3/uL (1.8-7.7); Neutrophils % 66.5 %; Nucleated Red Blood Cells % 0 %; Platelet Count 181 10^3/cmm (157-399); Red Blood Count 3.96 10^6/uL (3.85-5.65); Red Cell Distribution Width 13.7 % (12.1-15.1); White Blood Count 7.18 10^3/uL (3.29-11.43)
[2022-12-01 13:24] LABS: Alanine Aminotransferase 22 U/L (0-41); Albumin Level 4.2 g/dL (3.5-5.2); Alkaline Phosphatase 89 U/L (40-130); Aspartate Amino Transferase 26 U/L (0-40); Globulin 2.2 g/dL (1.3-4.6); Glomerular Filtration Rate 84.2 mL/min (90-130); Total Bilirubin 0.6 mg/dL (0.15-1.2); Total Protein 6.4 g/dL (6.6-8.7)
== END 2022-12-01 12:53 | disposition home or self-care (01) ==
PROVIDERS: PCP Family Medicine; Visit Provider Internal Medicine Rheumatology
DX: M06.041 Rheumatoid arthritis without rheumatoid factor, right hand (principal); M06.042 Rheumatoid arthritis without rheumatoid factor, left hand; Z79.899 Other long term (current) drug therapy
CPT/HCPCS: 36415; 80076; 82565; 85025; 86140

== ENCOUNTER → 2022-12-05 13:11 | Outpatient (BNVA) | payer MEDICARE, OTHER, SELFPAY | PROVIDERS: PCP Family Medicine; Visit Provider Internal Medicine Rheumatology | DX: Z79.899 Other long term (current) drug therapy (principal); M06.041 Rheumatoid arthritis without rheumatoid factor, right hand; M06.042 Rheumatoid arthritis without rheumatoid factor, left hand; G56.03 Carpal tunnel syndrome, bilateral upper limbs; Z71.89 Other specified counseling; M47.22 Other spondylosis with radiculopathy, cervical region | CPT/HCPCS: 99214 ==

== ENCOUNTER → 2023-01-26 09:51 | Outpatient (BNVA) | payer MEDICARE, OTHER, SELFPAY | PROVIDERS: PCP Family Medicine; Visit Provider Nurse Practitioner Family | DX: R10.9 Unspecified abdominal pain (principal); I10 Essential (primary) hypertension; E55.9 Vitamin D deficiency, unspecified; R41.3 Other amnesia; Z79.899 Other long term (current) drug therapy | CPT/HCPCS: 74018; 80053; 80061; 81003; 82306; 82607; 83735; 84443; 85025 ==

== ENCOUNTER → 2023-02-27 12:52 | Outpatient (BNVA) | payer MEDICARE, OTHER, SELFPAY | PROVIDERS: PCP Family Medicine; Visit Provider Internal Medicine Rheumatology | DX: M06.041 Rheumatoid arthritis without rheumatoid factor, right hand (principal); M06.042 Rheumatoid arthritis without rheumatoid factor, left hand; G56.03 Carpal tunnel syndrome, bilateral upper limbs; Z79.899 Other long term (current) drug therapy; Z71.89 Other specified counseling; M47.22 Other spondylosis with radiculopathy, cervical region | CPT/HCPCS: 99214 ==

== ENCOUNTER → 2023-04-10 08:53 | Outpatient (BNVA) | payer MEDICARE, OTHER, SELFPAY | PROVIDERS: PCP Family Medicine; Referring Provider Nurse Practitioner Family; Visit Provider Psychiatry & Neurology Neurology | DX: R41.3 Other amnesia (principal); G56.03 Carpal tunnel syndrome, bilateral upper limbs; M62.541 Muscle wasting and atrophy, not elsewhere classified, right hand; M62.542 Muscle wasting and atrophy, not elsewhere classified, left hand | CPT/HCPCS: 36415; 82542; 99203 ==

== ENCOUNTER 2023-05-03 15:49 | Outpatient (CLI) | payer MEDICARE, OTHER, SELFPAY ==
--- NOTE | 2023-05-03 16:00 | MR_ITS ---
WS: [id number] MRI BRAIN WITH AND WITHOUT CONTRAST HISTORY: R41.3 - Other amnesia COMPARISON: None available. TECHNIQUE: Multiplanar imaging performed through the brain with MultiHance 18 ml's IV. Diffusion imaging is normal. Moderate periventricular white matter disease is patchy and confluent. A dditional subcortical areas of increased T2 and FLAIR signal. These are more than typically noted in a patient of this age. There is no hemorrhage. Mild volume loss is symmetric. Moderate bilateral hippocampal atrophy. Ventricles and extra-axial spaces are normal. Clivus and pituitary gland are normal. Posterior fossa is normal. No infarcts. Degenerative changes in the upper cervical spine. There is an increase in focal kyphosis at the C2-3 junction with mild mass effect upon the upper cervical cord. Postcontrast images are negative for masses or vascular malformations. Dural venous sinuses are normal. Paranasal sinuses: Mild mucoperiosteal thickening in the LEFT maxillary sinus. No air-fluid levels. Mastoid air cells: Normal. Calvarium and scalp: Normal. IMPRESSION: 1. Moderate small vessel ischemic disease throughout the white matter. More than expected for patien t of this age. 2. Mild bilateral cerebral atrophy. 3. Moderate bilateral hippocampal formation atrophy. 4. No acute infarct and no hemorrhage.
[2023-05-03] MEDS: gadobenate dimeglumine 20 mL vial IV (16:38)
== END 2023-05-03 15:50 | disposition home or self-care (01) ==
LOC: RAD 15:49
PROVIDERS: PCP Family Medicine; Visit Provider Psychiatry & Neurology Neurology
DX: R41.3 Other amnesia (principal); I67.82 Cerebral ischemia; G31.9 Degenerative disease of nervous system, unspecified
CPT/HCPCS: 70553; A9577

== ENCOUNTER → 2023-05-05 13:32 | Outpatient (BNVA) | payer MEDICARE, OTHER, SELFPAY | PROVIDERS: PCP Family Medicine; Visit Provider Psychiatry & Neurology Neurology | DX: G56.02 Carpal tunnel syndrome, left upper limb (principal); G56.23 Lesion of ulnar nerve, bilateral upper limbs; G62.89 Other specified polyneuropathies | CPT/HCPCS: 95911 ==

== ENCOUNTER 2023-05-09 07:58 | Outpatient (CLI) | payer MEDICARE, OTHER, SELFPAY ==
--- NOTE | 2023-05-09 08:30 | FL_ITS ---
WS: [id number] LUMBAR PUNCTURE CLINICAL INFORMATION: R41.3 - Other amnesia COMPARISON: MRI head 05/03/2023 TECHNIQUE: Informed consent: The procedure and its potential risk and complications were discussed with the mary ent. Verbal and written consent was obtained. Timeout: A timeout was performed to confirm correct patient, procedure, and site. Patient was prepped and draped in the usual sterile fashion. Lidocaine 1% was used for local anesthes ia. Utilizing fluoroscopic guidance, a 3.5 inch 22-gauge spinal needle was advanced into the subarach noid space at L5-S1 via LEFT oblique sublaminar approach. Free flow of clear CSF was obtained. 12 cc of CSF was collected and sent the lab for further analysis. CSF was initially blood-tinged due to tra umatic puncture then quickly cleared. Patient remained in the radiology suite supine for 45 minutes postprocedure FLUOROSCOPIC TIME: 0min [id number] # of spot films: 1 IMPRESSION: Fluoroscopically guided lumbar puncture. No immediate complications
[2023-05-09 11:59] LABS: CSF Mononuclear # 0.002 10^3/uL (50-90); Mononuclear WBC CSF % 67 % (50-90); Polynuclear Cells ,CSF # 0.001 10^3/uL (0-10); Polynuclear WBC CSF % 33 % (0-10); Red Blood Cell CSF 0 10^3/uL (0-0); White Blood Cell CSF 3 /uL (0-5)
[2023-05-09 12:01] LABS: Glucose CSF 61 mg/dL (40-70)
[2023-05-09 12:02] LABS: Appearance CSF CLEAR (CLEAR); Color CSF COLORLESS (COLORLESS); Pathology Referral Yes
[2023-05-18 22:59] LABS: VDRL on CSF NON-REACTIVE
== END 2023-05-09 07:59 | disposition home or self-care (01) ==
LOC: RAD 07:59
PROVIDERS: PCP Family Medicine; Visit Provider Psychiatry & Neurology Neurology
DX: R41.3 Other amnesia (principal)
CPT/HCPCS: 62328; 80503; 82945; 86592; 87015; 87070; 87075; 87102; 87116; 87205; 87206; 87252; 87327; 87801; 89050

== ENCOUNTER 2023-05-10 17:05 | Emergency (ER) | payer MEDICARE, OTHER, SELFPAY ==
[2023-05-10 17:10] VITALS: BP 162/94; PULSE 65; TEMP 36.5; O2SAT 98; BMI 24.0
--- NOTE | 2023-05-10 18:12 | ED_ITS ---
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 His headache started earlier today while he was at work started with a frontal headache that wraps around. Patient does state he had a spinal tap done yesterday and was told this could be a complication. Patient stated when he went to work it was okay but then got worse throughout the day to the point he had to come home. Patient is a starting get better now. Patient does not get normal headaches. Patient denies any other complaints. 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 Urolithiasis History of bladder stone CYSTOLITHOLAPAXY Reducible left inguinal hernia Hypertension Hx of renal calculi Surgical History History of throat surgery History of neck surgery 08/10/2022 History of fusion of cervical spine [facility] August 2022 Dr. San H/O prostatectomy H/O prostate biopsy fusion biopsy History of removal of calculus of renal pelvis through percutaneous nephrostomy S/P left inguinal hernia repair open 03/20/2019 History of colon resection Hx of arthroscopy of right knee Family History Mother , at age 74 Cancer Colon Father , at age 86 Cancer KIDNEY CANCER Other Rheumatoid arthritis Denies family history of Diabetes CAD (coronary artery disease) Chronic kidney disease (CKD) Lung disease Hypertension Stroke Social History Smoking and tobacco/nicotine status: former use of tobacco/nicotine Quit status (tobacco/nicotine): has quit using Year quit tobacco: 35 yrs ago Alcohol intake: never Substance/Drug Use: never Adopted: No Caregiver/support person: No Lives independently: No Household members: spouse Marital status: Current occupational status: employed Physical Exam Const: COMMON NORMALS: no acute distress, average body habitus, patient oriented x3, no limitations, healthy appearing, alert and well nourished HENMT: COMMON NORMALS: normocephalic, atraumatic, hearing grossly normal bilaterally, external ears normal, EAC's normal, Normal external nose present, moist oral mucous membranes and oropharynx normal HEAD & SCALP: normocephalic and atraumatic NOSE: Normal external nose present EXTERNAL EAR: Yes external ears normal EXTERNAL AUDITORY CANAL: EAC's normal Neck/C-Spine: COMMON NORMALS: full ROM, no lymphadenopathy, supple, no meningeal signs, no JVD and Thyroid normal THYROID: Thyroid normal Chest: COMMONS NORMALS: normal inspection of the chest and normal palpation of entire chest wall Resp: COMMON NORMALS: normal respiratory effort, No retractions, No use of accessory muscles and clear to auscultation bilaterally AUSCULTATION: clear to auscultation bilaterally Cardio: COMMON NORMALS: no JVD, regular rate, regular rhythm, S1 normal heart sound present, S2 normal heart sound present, No gallops present (Cardio), No clicks present (Cardio), No murmurs present (Cardio) and No rub (Cardio) RATE: regular rate RHYTHM: regular rhythm HEART SOUNDS: S1 normal heart sound present and S2 normal heart sound present GI: COMMON NORMALS: Normal to inspection, nondistended, normoactive bowel sounds present, Soft to palpation, non-tender, No hepatosplenomegaly present and no masses PALPATION: Yes Soft to palpation and Yes No hepatosplenomegaly present Neuro: COMMON NORMALS: patient oriented x3 SENSORIUM/ORIENTATION: Yes alert MENINGEAL SIGNS: Yes no meningeal signs Course Vital Signs: Vital signs: Vital Signs Temperature 97.7 F 05/10/23 17:10 Pulse Rate 74 05/10/23 19:51 Respiratory Rate 16 05/10/23 19:51 Blood Pressure 157/103 05/10/23 19:51 Pulse Oximetry 97 05/10/23 19:51 Oxygen Delivery Me thod Room Air 05/10/23 18:29 MDM - Headache Medical Decision Making Patient is thought to have a post spinal tap headache. Patient was given 1000 mg of Tylenol and 1 L bolus of IV saline and that he started to feel better and is ready to go home. Patient be discharged home and he can follow-up with his PCP on an as-needed basis. Differential Diagnosis Unlikely migraine, tension headache, subarachnoid hemorrhage, headache, meningitis, sinusitis or postconcussion syndrome Medical Records I reviewed the patient's medical records. Lab Data I reviewed the patient's lab results. No radiology studies performed this visit Discharge Plan Discharge Patient Disposition: Home Clinical Impression: Headache after spinal puncture Condition: Stable Prescriptions: No Action loratadine [Allergy Relief (loratadine)] 10 mg tablet 10 mg PO DAILY amlodipine 5 mg tablet 5 mg PO DAILY gabapentin 300 mg capsule 300 mg PO TID Qty: 90 3RF leflunomide 20 mg tablet 20 mg PO DAILY Qty: 30 3RF sildenafil 100 mg tablet 100 mg PO DAILY PRN (Reason: sexual activity) Qty: 20 12RF Rx Instructions: 1 hour before intercourse on empty stomach. NO NITROGLYCERIN! cholecalciferol (vitamin D3) 50 mcg (2,000 unit) capsule 50 mcg PO DAILY Qty: 90 1RF atorvastatin 10 mg tablet 10 mg PO QPM Qty: 90 1RF hydrochlorothiazide 50 mg tablet 50 mg PO QAM Qty: 90 1RF hydralazine 25 mg tablet See Rx Instructions .ROUTE .COMPLEX Qty: 180 0RF Dose Instruction: Take 1 tablet by mouth twice daily Rx Instructions: Take 1 tablet by mouth twice daily pantoprazole 40 mg tablet,delayed release (DR/EC) See Rx Instructions .ROUTE .COMPLEX Qty: 90 1RF Dose Instruction: Take 1 tablet by mouth once daily Rx Instructions: Take 1 tablet by mouth once daily meloxicam 15 mg tablet See Rx Instructions .ROUTE .COMPLEX Qty: 30 5RF Dose Instruction: TAKE 1 TABLET BY MOUTH ONCE DAILY AT 6AM Rx Instructions: TAKE 1 TABLET BY MOUTH ONCE DAILY AT 6AM potassium citrate 10 mEq (1,080 mg) tablet extended release See Rx Instructions .ROUTE .COMPLEX Qty: 540 1RF Dose Instruction: TAKE 2 TABLETS BY MOUTH THREE TIMES DAILY AT 6AM, NOON AND 8PM Rx Instructions: TAKE 2 TABLETS BY MOUTH THREE TIMES DAILY AT 6AM, NOON AND 8PM lisinopril 20 mg tablet See Rx Instructions .ROUTE .COMPLEX Qty: 180 1RF Dose Instruction: TAKE 1 TABLET BY MOUTH TWICE DAILY AT 6AM AND 8PM Rx Instructions: TAKE 1 TABLET BY MOUTH TWICE DAILY AT 6AM AND 8PM acetaminophen 325 mg Tablet 325 mg PO QID PRN (Reason: Pain) omega 0-ujk-uaw-fish oil [Fish Oil] 1,000 mg (120 mg-180 mg) Capsule 1 cap PO DAILY@0600 fluticasone propionate 50 mcg/actuation spray,suspension 1 spray INTRANASAL DAILY PRN (Reason: Allergy Symptoms) aspirin 81 mg Tablet,Delayed Release (Dr/Ec) 81 mg PO DAILY vitamin B complex Tablet 1 tab PO DAILY magnesium 200 mg Tablet 200 mg PO DAILY Men's 50 Plus Multivitamin 400-20-370 mcg Tablet 1 tab PO DAILY Discharge Orders: Discharge ED (Routine); Ordered 05/10/23 Ordered By: Escobar Morales Referrals: Socorro Walsh MD [Primary Care Provider] - 1 week Patient Instructions: Lumbar Puncture (ED) Activity Restrictions/Additional Instructions: Please drink plenty of fluids including caffeinated beverages. Please rest and including laying flat as this might help your headache. Please continue with [id number] Tylenol as needed for pain. If your pain returns or worsens please feel free to return to the ER. Coding Level of Care Code ED [employer] for Timothy Tanner
[2023-05-10 18:29] VITALS: PULSE 80; O2SAT 95
[2023-05-10 18:30] VITALS: BP 162/97
[2023-05-10] MEDS: acetaminophen 500 mg Tablet 1000 MG PO (18:41)
[2023-05-10] MEDS: sodium chloride 0.9% 1,000 ML 999 ML IV (18:42)
[2023-05-10 19:51] VITALS: BP 157/103; PULSE 74; RESP 16; O2SAT 97
== END 2023-05-10 19:52 | disposition home or self-care (01) ==
PROVIDERS: Emergency Provider Emergency Medicine; PCP Family Medicine
DX: G97.1 Other reaction to spinal and lumbar puncture (principal); Z79.82 Long term (current) use of aspirin; Z87.891 Personal history of nicotine dependence; Z85.46 Personal history of malignant neoplasm of prostate; I10 Essential (primary) hypertension
CPT/HCPCS: 99284; J7030

== ENCOUNTER → 2023-06-06 10:29 | Outpatient (BNVA) | payer MEDICARE, OTHER, SELFPAY | PROVIDERS: PCP Family Medicine; Visit Provider Physician Assistant | DX: G56.03 Carpal tunnel syndrome, bilateral upper limbs; G56.23 Lesion of ulnar nerve, bilateral upper limbs | CPT/HCPCS: 73110; 99213 ==

== ENCOUNTER → 2023-06-14 09:36 | Outpatient (BNVA) | payer MEDICARE, OTHER, SELFPAY | PROVIDERS: PCP Family Medicine; Visit Provider Nurse Practitioner Family | DX: C61 Malignant neoplasm of prostate (principal) | CPT/HCPCS: 84153 ==

== ENCOUNTER → 2023-08-22 14:24 | Outpatient (BNVA) | payer MEDICARE, OTHER, SELFPAY | PROVIDERS: PCP Family Medicine; Visit Provider Internal Medicine Rheumatology | DX: M06.041 Rheumatoid arthritis without rheumatoid factor, right hand (principal); M06.042 Rheumatoid arthritis without rheumatoid factor, left hand; M19.041 Primary osteoarthritis, right hand; M19.042 Primary osteoarthritis, left hand; M47.812 Spondylosis without myelopathy or radiculopathy, cervical region; Z79.899 Other long term (current) drug therapy; Z11.59 Encounter for screening for other viral diseases; Z87.891 Personal history of nicotine dependence; Z71.85 Encounter for immunization safety counseling; G56.01 Carpal tunnel syndrome, right upper limb | CPT/HCPCS: 36415; 80076; 82565; 85025; 86140; 99214 ==

== ENCOUNTER → 2023-11-15 12:37 | Outpatient (BNVA) | payer MEDICARE, OTHER, SELFPAY | PROVIDERS: PCP Nurse Practitioner Family; Visit Provider Psychiatry & Neurology Neurology | DX: R41.3 Other amnesia (principal); G56.03 Carpal tunnel syndrome, bilateral upper limbs; M62.541 Muscle wasting and atrophy, not elsewhere classified, right hand; M62.542 Muscle wasting and atrophy, not elsewhere classified, left hand | CPT/HCPCS: 99212 ==

== ENCOUNTER → 2023-11-22 09:15 | Outpatient (BNVA) | payer MEDICARE, OTHER, SELFPAY | PROVIDERS: PCP Nurse Practitioner Family; Visit Provider Internal Medicine Rheumatology | DX: Z79.899 Other long term (current) drug therapy (principal); M06.041 Rheumatoid arthritis without rheumatoid factor, right hand; M06.042 Rheumatoid arthritis without rheumatoid factor, left hand | CPT/HCPCS: 80076; 82565; 85025; 86140 ==

== ENCOUNTER → 2023-12-04 14:32 | Outpatient (BNVA) | payer MEDICARE, OTHER, SELFPAY | PROVIDERS: PCP Nurse Practitioner Family; Visit Provider Nurse Practitioner Family | DX: M81.0 Age-related osteoporosis without current pathological fracture (principal); M47.894 Other spondylosis, thoracic region; S23.3XXA Sprain of ligaments of thoracic spine, initial encounter; Z85.46 Personal history of malignant neoplasm of prostate; M19.012 Primary osteoarthritis, left shoulder; M25.512 Pain in left shoulder; M54.6 Pain in thoracic spine; W31.2XXA Contact with powered woodworking and forming machines, initial encounter | CPT/HCPCS: 72072; 73030 ==

== ENCOUNTER → 2024-02-07 09:44 | Outpatient (BNVA) | payer MEDICARE, OTHER, SELFPAY | PROVIDERS: PCP Nurse Practitioner Family; Visit Provider Nurse Practitioner Family | DX: C61 Malignant neoplasm of prostate (principal) | CPT/HCPCS: 84153 ==

== ENCOUNTER → 2024-02-14 10:09 | Outpatient (BNVA) | payer MEDICARE, OTHER, SELFPAY | PROVIDERS: PCP Nurse Practitioner Family; Visit Provider Nurse Practitioner Family | DX: I10 Essential (primary) hypertension; E55.9 Vitamin D deficiency, unspecified | CPT/HCPCS: 80053; 80061; 82306; 83735; 84443; 85025 ==

== ENCOUNTER → 2024-02-29 07:28 | Outpatient (BNVA) | payer MEDICARE, OTHER, SELFPAY | PROVIDERS: PCP Nurse Practitioner Family; Visit Provider Podiatrist Foot & Ankle Surgery | DX: M20.41 Other hammer toe(s) (acquired), right foot; M20.42 Other hammer toe(s) (acquired), left foot; L84 Corns and callosities; L60.3 Nail dystrophy; M20.31 Hallux varus (acquired), right foot; M20.32 Hallux varus (acquired), left foot | CPT/HCPCS: 73630; 99213 ==

== ENCOUNTER → 2024-04-12 09:50 | Outpatient (BNVA) | payer MEDICARE, OTHER, SELFPAY | PROVIDERS: PCP Nurse Practitioner Family; Visit Provider Nurse Practitioner Family | DX: C61 Malignant neoplasm of prostate (principal) | CPT/HCPCS: 84153 ==

== ENCOUNTER → 2024-04-29 10:42 | Outpatient (BNVA) | payer MEDICARE, OTHER, SELFPAY | PROVIDERS: PCP Nurse Practitioner Family; Visit Provider Internal Medicine Rheumatology | DX: M06.041 Rheumatoid arthritis without rheumatoid factor, right hand (principal); M06.042 Rheumatoid arthritis without rheumatoid factor, left hand; G56.03 Carpal tunnel syndrome, bilateral upper limbs; Z79.899 Other long term (current) drug therapy; Z71.89 Other specified counseling; M47.22 Other spondylosis with radiculopathy, cervical region | CPT/HCPCS: 0346U; 36415; 83520; 99212; 99214 ==

== ENCOUNTER 2024-06-05 12:23 | Outpatient (CLI) | payer MEDICARE, OTHER, SELFPAY | END 2024-06-05 12:24 | disposition home or self-care (01) | LOC: SLEEP 12:31 | PROVIDERS: Family Provider Nurse Practitioner Family; PCP Nurse Practitioner Family; Visit Provider Nurse Practitioner Family | DX: G47.33 Obstructive sleep apnea (adult) (pediatric) (principal) | CPT/HCPCS: G0399 ==

== ENCOUNTER → 2024-06-18 13:14 | Outpatient (BNVA) | payer MEDICARE, OTHER, SELFPAY | PROVIDERS: Family Provider Nurse Practitioner Family; PCP Nurse Practitioner Family; Visit Provider Podiatrist Foot & Ankle Surgery | DX: M79.671 Pain in right foot (principal); M20.41 Other hammer toe(s) (acquired), right foot; M20.42 Other hammer toe(s) (acquired), left foot; L84 Corns and callosities; M20.31 Hallux varus (acquired), right foot; M20.32 Hallux varus (acquired), left foot | CPT/HCPCS: 99213 ==

== ENCOUNTER → 2024-08-01 10:45 | Outpatient (BNVA) | payer MEDICARE, OTHER, SELFPAY | PROVIDERS: Family Provider Nurse Practitioner Family; PCP Nurse Practitioner Family; Referring Provider Nurse Practitioner Family; Visit Provider Student in an Organized Health Care Education/Training Program | DX: Z12.11 Encounter for screening for malignant neoplasm of colon (principal) | CPT/HCPCS: 99024; 99204 ==

== ENCOUNTER 2024-08-13 09:28 | Day surgery (SDC) | payer MEDICARE, OTHER, SELFPAY ==
[2024-08-13 10:05] VITALS: BP 120/82; PULSE 59; RESP 16; TEMP 36.1; O2SAT 98
--- NOTE | 2024-08-13 10:14 | ANES.PREANE2 ---
Pre-Anesthetic Assessment Height/Weight: Height 1.78 m Weight 80.739 kg Temp Pulse Resp BP Pulse Ox O2 Del Method 97.0 F L 59 L 16 120/82 98 Room Air 08/13/24 10:08/13/24 10:05 08/13/24 10:05 08/13/24 10:05 08/13/24 10:08/13/24 10:05 Preop Diagnosis: none Operation Date: 08/13/24 11:00 Proposed Procedures p Colonoscopy 28219 G0105 Z12.11(Not Applicable) - Star De La Cruz MD Familial anesthetic complications: none Was Beta Jessica taken within 24 hours: N/A Last intake: Intake Last Liquid Date 08/12/24 Last Liquid Time 21:00 Last Solid Date 08/11/24 Last Solid Time 20:00 Social No alcohol and No tobacco Exam alert, oriented x 3, clear to auscultation bilaterally and regular rate & rhythm Airway Submandibular: within normal limits Cervical ROM: Other (limited ROM) Mallampati: Class I Dentition: full Pulmonary Sleep Apnea (newly dx.) CV/HEM Atrial Fibrillation and Hypertension Renal stones. GI Gastroesophageal Reflux Disease Metabolic None reported Musc/skel None reported Neuropsych None reported Anesthetic Plan ASA status: 3 Anesthesia: MAC Medications/Allergies Home Medications ?Medication ?Instructions ?Recorded ?Confirmed ?Last Taken ?Type acetaminophen 325 mg tablet 325 mg PO QID PRN Pain 03/19/19 08/08/24 08/12/24 History omega 6-hyh-ewp-fish oil 1,000 mg 1 cap PO DAILY@0600 03/19/19 08/08/24 08/12/24 History (120 mg-180 mg) capsule (Fish Oil) sildenafil 100 mg tablet 100 mg PO DAILY PRN sexual 06/10/20 08/08/24 08/12/24 Rx activity #20 tabs cholecalciferol (vitamin D3) 50 50 mcg PO DAILY #90 caps 06/17/20 08/08/24 08/12/24 Rx mcg (2,000 unit) capsule loratadine 10 mg tablet (Allergy 10 mg PO DAILY PRN Allergy Symptoms 08/23/21 08/08/24 08/12/24 History Relief (loratadine)) magnesium 200 mg tablet 200 mg PO DAILY 06/17/22 08/08/24 08/12/24 History iyavmyjlasgd-zle-zdqfl acid-vit 1 tab PO DAILY 06/17/22 08/08/24 08/12/24 History K-lycop 400 mcg-20 mcg-370 mcg tablet (Men's 50 Plus Multivitamin) vitamin B complex 1 tab PO DAILY 06/17/22 08/08/24 08/12/24 History amlodipine 5 mg tablet 5 mg PO DAILY 09/22/22 08/08/24 08/13/24 History potassium chloride 20 mEq 20 meq PO TID #90 tabs 02/14/24 08/08/24 08/12/24 Rx tablet,extended release gabapentin 300 mg capsule 300 mg PO TID #90 caps 04/29/24 08/08/24 08/13/24 Rx auto-titrating cpap 6-16cm #1 ea 07/05/24 07/05/24 Unknown Rx hydralazine 25 mg tablet 25 mg PO BID PRN high blood 08/08/24 08/08/24 08/12/24 History pressure lisinopril 20 mg tablet 20 mg PO BID 08/08/24 08/08/24 08/12/24 History meloxicam 15 mg tablet 15 mg PO DAILY 08/08/24 08/08/24 08/12/24 History pantoprazole 40 mg tablet,delayed 40 mg PO DAILY 08/08/24 08/08/24 08/12/24 History release Allergies Allergy/AdvReac Type Severity Reaction Status Date / Time Allpruk-OVA-KjD Reductase Allergy ADR-Muscle Verified 08/08/24 08:18 Inhibitor Pain celecoxib (From Celebrex) AdvReac COULDNT Verified 08/08/24 08:18 [facility] Anesthesia Medical History Atrial fibrillation with RVR Cervical radiculopathy due to osteoarthritis of spine Cervical radiculopathy Seronegative rheumatoid arthritis of both hands Hammer toes of both feet Immunization counseling High risk medication use Inflammatory arthritis Prostate cancer 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 Urolithiasis History of bladder stone CYSTOLITHOLAPAXY Reducible left inguinal hernia Hypertension Hx of renal calculi Surgical History History of throat surgery History of neck surgery 08/10/2022 History of fusion of cervical spine [facility] August [address] Dr. San H/O prostatectomy H/O prostate biopsy fusion biopsy History of removal of calculus of renal pelvis through percutaneous nephrostomy S/P left inguinal hernia repair open 03/20/2019 History of colon resection Hx of arthroscopy of right knee Family History Mother , at age 74 Cancer Colon Father , at age 86 Cancer KIDNEY CANCER Other Rheumatoid arthritis Denies family history of Diabetes CAD (coronary artery disease) Chronic kidney disease (CKD) Lung disease Hypertension Stroke Social History Smoking and tobacco/nicotine status: never used tobacco/nicotine Quit status (tobacco/nicotine): has quit using Year quit tobacco: 35 yrs ago Alcohol intake: never Substance/Drug Use: never Adopted: No Caregiver/support person: No Lives independently: No Household members: spouse Marital status: Current occupational status: employed
[2024-08-13] MEDS: sodium chloride 0.9% 1,000 ML 15 ML IV (10:26)
[2024-08-13 10:51] LABS: Blood Urea Nitrogen 16 mg/dL (8-23); Calcium 9.3 mg/dL (8.5-10.5); Carbon Dioxide 25 mmol/L (22-29); Chloride 105 mmol/L (98-107); Creatinine Clr Calc Pharmacy 93.7984; Glomerular Filtration Rate 95.8 mL/min (90-130); Glucose 88 mg/dL (65-115); Osmolality Calculated 291 mOsm/kg (285-295); Sodium 140 mmol/L (136-145)
--- NOTE | 2024-08-13 10:51 | W.PM.OPSUD ---
Surgery/Procedure H&P Update DATE OF PROCEDURE: August 13, 2024 DATE H&P PERFORMED: 08/01/24 H&P UPDATE INFORMATION: I have reviewed H&P completed within last 30 days, I have examined patient prior to procedure and No changes to prior documentation PREOP DIAGNOSIS: none PLANNED PROCEDURE: Operation Date: 08/13/24 11:00 Proposed Procedures p Colonoscopy 02050 G0105 Z12.11(Not Applicable) - Star De La Cruz MD
[2024-08-13 11:16] VITALS: BP 96/68; RESP 16; TEMP 36.1; O2SAT 99
[2024-08-13 11:35] VITALS: BP 99/71; PULSE 67; RESP 16; O2SAT 99
[2024-08-13 11:38] VITALS: BP 102/69
--- NOTE | 2024-08-13 12:05 | ANE.PACU2 ---
Inpatient post-anesthesia follow up: Airway intact: Yes Vital signs: Temperature 97 F Pulse Rate 67 Respiratory Rate 16 Blood Pressure 102/69 Pulse Oximetry 99 Oxygen Delivery Me thod Room Air Oxygen Flow Rate 4 Fraction of Inspir ed Oxygen Hydration adequate: Yes Nausea and vomiting: No Pain level: 1 Mental status: Baseline
== END 2024-08-13 12:08 | disposition home or self-care (01) ==
PROVIDERS: Student in an Organized Health Care Education/Training Program; PCP Nurse Practitioner Family; Visit Provider Student in an Organized Health Care Education/Training Program
PROC: 0DJD8ZZ Inspection of Lower Intestinal Tract, Via Natural or Artificial Opening Endoscopic (ICD-10-PCS; CPT 45378; principal; 2024-08-13 11:00)
DX: Z12.11 Encounter for screening for malignant neoplasm of colon (principal); Z80.0 Family history of malignant neoplasm of digestive organs; D12.8 Benign neoplasm of rectum; I48.91 Unspecified atrial fibrillation; I10 Essential (primary) hypertension; K21.9 Gastro-esophageal reflux disease without esophagitis; G47.30 Sleep apnea, unspecified; Z79.899 Other long term (current) drug therapy; Z85.46 Personal history of malignant neoplasm of prostate; Z87.891 Personal history of nicotine dependence; Z90.49 Acquired absence of other specified parts of digestive tract
CPT/HCPCS: 45385; 80048; 88305; J2704; J3490; J7030

== ENCOUNTER → 2024-08-19 10:47 | Outpatient (BNVA) | payer MEDICARE, OTHER, SELFPAY | PROVIDERS: PCP Nurse Practitioner Family; Visit Provider Internal Medicine Rheumatology | DX: M06.041 Rheumatoid arthritis without rheumatoid factor, right hand (principal); M06.042 Rheumatoid arthritis without rheumatoid factor, left hand; G56.03 Carpal tunnel syndrome, bilateral upper limbs; Z79.899 Other long term (current) drug therapy; Z71.89 Other specified counseling; M47.22 Other spondylosis with radiculopathy, cervical region | CPT/HCPCS: 99214 ==

== ENCOUNTER → 2024-08-26 09:31 | Outpatient (BNVA) | payer MEDICARE, OTHER, SELFPAY | PROVIDERS: PCP Nurse Practitioner Family; Visit Provider Student in an Organized Health Care Education/Training Program | DX: Z09 Encounter for follow-up examination after completed treatment for conditions other than malignant neoplasm (principal) | CPT/HCPCS: 99213 ==

== ENCOUNTER → 2024-09-09 11:18 | Outpatient (BNVA) | payer MEDICARE, OTHER, SELFPAY | PROVIDERS: PCP Nurse Practitioner Family; Visit Provider Nurse Practitioner Family | DX: I10 Essential (primary) hypertension (principal); N52.31 Erectile dysfunction following radical prostatectomy; E78.5 Hyperlipidemia, unspecified; Z79.899 Other long term (current) drug therapy; C61 Malignant neoplasm of prostate | CPT/HCPCS: 80053; 80061; 82306; 82607; 84153; 84443; 85025 ==

== ENCOUNTER → 2024-10-25 12:18 | Outpatient (BNVA) | payer MEDICARE, OTHER, SELFPAY | PROVIDERS: PCP Nurse Practitioner Family; Visit Provider Nurse Practitioner Family | DX: R10.32 Left lower quadrant pain (principal) | CPT/HCPCS: 80053; 85025 ==

== ENCOUNTER 2024-10-31 13:42 | Outpatient (CLI) | payer MEDICARE, OTHER, SELFPAY ==
--- NOTE | 2024-10-31 15:00 | CT_ITS ---
WS: [id number] CT ABDOMEN AND PELVIS WITH CONTRAST HISTORY: R10.32 - Left lower quadrant pain TECHNIQUE: Imaging performed of the abdomen and pelvis with IV contrast. Single phase imaging of the abdomen. Coronal and sagittal reformats are submitted. All CT scans at [facility] use at least one of these dose optimization techniques: automated exposure control; mA and/or kV adjustment per patient size (includes targeted exams where dose is matched to clinical indication); or iterative reconstruction. IV CONTRAST: Omnipaque 350; 100 mL IV. Oral contrast: Yes. DLP: 373.48 mGy.cm COMPARISON: 10/02/2020 Lower thorax: Lung bases are clear. Heart is normal size. No hiatal hernia. Liver/biliary system: Normal size with no intrahepatic dilatation. Gallbladder: Mildly contracted gallbladder with stones. No wall thickening or inflammation. Pancreas: Normal size pancreas and pancreatic duct. No adjacent inflammation. Spleen: Normal size spleen. No mass or infarct. Adrenal glands: Normal. Right kidney: Normal. Left kidney: Normal size kidney. Nonobstructing calcification measuring 8 mm in the lower pole. Tiny cortical cyst measuring 5 mm lower pole. No obstruction. Distal LEFT ureter is not well visualized due to artifact from patient's bilateral hip prostheses. Aorta: Mild atherosclerosis with no aneurysm. Lymphadenopathy: None. Free fluid: None. GI tract: Stomach is markedly distended with oral contrast. No small bowel obstruction. There is marked fecal retention and constipation with more inspissated material in the cecum and the rectum. Portions of the distal colon are obscured by artifact. There are surgical clips in the descending colon which indicate prior surgery. There is no obstruction at this point. No evidence for diverticulitis. Appendix is not identified. Abdominal wall: Fat containing umbilical hernia. Pelvis: Soft tissues are being obscured by artifact from bilateral hip prostheses. Bones: Bilateral hip prostheses. Degenerative thoracic spondylosis. CT/CT abdomen pelvis w con* [id number] IMPRESSION: 1. Marked diffuse constipation. Largest amount of fecal retention in the cecum and ascending colon and towards the rectum. 2. No GI tract obstruction. 3. Limited evaluation of the pelvis due to artifact from patient's hip arthrop lasties. 4. Mildly contracted gallbladder with cholelithiasis. No evidence for acute ch olecystitis. 5. Nonobstructing LEFT renal calcification, 8 mm.
[2024-10-31] MEDS: iohexol 350 mg/mL 500 mL Btl (per mL) PO (15:02)
[2024-10-31] MEDS: iohexol 350 mg/mL 500 mL Btl (per mL) IV (15:19)
== END 2024-10-31 13:43 | disposition home or self-care (01) ==
LOC: RAD 13:43
PROVIDERS: PCP Nurse Practitioner Family; Visit Provider Nurse Practitioner Family
DX: R10.32 Left lower quadrant pain (principal); K80.20 Calculus of gallbladder without cholecystitis without obstruction; N28.89 Other specified disorders of kidney and ureter; K59.00 Constipation, unspecified; K42.9 Umbilical hernia without obstruction or gangrene; M47.814 Spondylosis without myelopathy or radiculopathy, thoracic region
CPT/HCPCS: 74177

== ENCOUNTER → 2024-11-05 08:46 | Outpatient (BNVA) | payer MEDICARE, OTHER, SELFPAY | PROVIDERS: PCP Nurse Practitioner Family; Visit Provider Podiatrist Foot & Ankle Surgery | DX: M79.671 Pain in right foot (principal); M20.41 Other hammer toe(s) (acquired), right foot; M20.42 Other hammer toe(s) (acquired), left foot; L84 Corns and callosities; M20.31 Hallux varus (acquired), right foot; M20.32 Hallux varus (acquired), left foot | CPT/HCPCS: 99213 ==

== ENCOUNTER → 2024-12-10 08:05 | Outpatient (BNVA) | payer MEDICARE, OTHER, SELFPAY | PROVIDERS: PCP Nurse Practitioner Family; Visit Provider Podiatrist Foot & Ankle Surgery | DX: M20.42 Other hammer toe(s) (acquired), left foot (principal); M20.41 Other hammer toe(s) (acquired), right foot; L84 Corns and callosities; M20.31 Hallux varus (acquired), right foot; M20.32 Hallux varus (acquired), left foot | CPT/HCPCS: 28010; 99213; J9999 ==

== ENCOUNTER 2024-12-18 15:10 | Outpatient (CLI) | payer MEDICARE, OTHER, SELFPAY | END 2024-12-18 15:11 | disposition home or self-care (01) | LOC: SPT 15:11 | PROVIDERS: PCP Nurse Practitioner Family; Visit Provider Podiatrist Foot & Ankle Surgery | DX: Z46.89 Encounter for fitting and adjustment of other specified devices (principal); M20.41 Other hammer toe(s) (acquired), right foot; M20.42 Other hammer toe(s) (acquired), left foot; L84 Corns and callosities; M20.31 Hallux varus (acquired), right foot; M20.32 Hallux varus (acquired), left foot | CPT/HCPCS: L3030 ==

== ENCOUNTER → 2025-02-17 09:02 | Outpatient (BNVA) | payer MEDICARE, OTHER, SELFPAY | PROVIDERS: PCP Nurse Practitioner Family; Visit Provider Podiatrist Foot & Ankle Surgery | DX: L84 Corns and callosities (principal); M79.671 Pain in right foot; M20.41 Other hammer toe(s) (acquired), right foot; M20.42 Other hammer toe(s) (acquired), left foot; M20.31 Hallux varus (acquired), right foot; M20.32 Hallux varus (acquired), left foot; M79.672 Pain in left foot | CPT/HCPCS: 99213 ==